=== PATIENT | male | born 1980 | race Hispanic/Latino ===

== ENCOUNTER 2017-12-22 17:45 | Inpatient (IN) | payer BC, OTHER ==
[~2017-12-22] VITALS: Ht 185.4 cm; Wt 95.4 kg
[~2017-12-22 17:45] MED LIST: ARIXTRA10 MG/0.8 SQ; ASPIRIN81 MG PO; COUMADIN5 MG PO; CYCLOBENZAPRINE5 MG PO; ENOXAPARIN100 MG/1 M SC; LOSARTAN POTASS25 MG PO; LOVENOX40 MG/0.4 SC; PANTOPRAZOLE SO40 MG PO; TYLENOL WITH C1 EACH PO
--- OUTSIDE RECORDS SUMMARY | 2017-12-22 17:47 | XMS REPORT | Clinical Summary ---
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 Disp. Refills Start End Date Status Date aspirin 81 MG EC tablet Take 81 mg by mouth Active daily. rivaroxaban (XARELTO) 20 Take 1 tablet (20 mg 30 tablet 11 12/27/19 Active mg Tab tablet total) by mouth daily. 17 losartan (COZAAR) 50 MG Take 50 mg by mouth Active tablet daily. sucralfate (CARAFATE) 100 Take 1 g by mouth 4 12/23/19 Discontin mg/mL suspension (four) times daily. 17 ued enoxaparin (LOVENOX) 100 Inject subcutaneously. 12/23/19 Discontin mg/mL Syrg 17 ued esomeprazole (NEXIUM) 40 Take 40 mg by mouth 04/20/20 Discontin MG capsule daily. 17 ued rivaroxaban (XARELTO) 10 Take by mouth 2 (two) 12/27/19 Discontin mg Tab tablet times daily . 17 ued ALPRAZolam (XANAX) 0.5 MG Take 1 tablet (0.5 mg 40 tablet 0 12/29/19 01/18/20 tablet total) by mouth 2 (two) 17 17 times daily as needed for Anxiety for up to 20 days. Max Daily Amount: 1 mg Active Problems Problem Noted Date Acute pulmonary embolism (HCC) 12/22/2016 RUQ pain 12/22/2016 Chest pain 12/19/2014 History of pulmonary embolism 12/19/2014 Pulmonary embolism 12/01/2014 Abdominal pain 06/26/2014 Chest pain, mid sternal 06/29/2013 SOB (shortness of breath) 05/30/2013 Encounters Date Type Specialty Care Team Description 04/20/2017 Emergency Emergency Medicine [facility] Reynolds Acute diarrhea (Primary MD Holger Dx);Upper respiratory tract infection, unspecified type 12/22/2016 Hospital Cardiology [facility] - Encounter MD Darion 12/28/2016 Sriram Delgado MD after 12/21/2016 Family History Medical History Relation Name Comments Diabetes Father Hypertension Father Hypertension Mother Relation Name Status Comments Father Mother Social History Tobacco Use Types Packs/Day Years Used Date Never Smoker Smokeless Tobacco: Never Used Alcohol Use Drinks/Week oz/Week Comments Yes socially Sex Assigned at Date Recorded Not on file Last Filed Vital Signs Vital Sign Reading Time Taken Blood Pressure 140/88 04/20/2017 6:53 AM CDT Pulse 71 04/20/2017 6:53 AM CDT Temperature 36.9 C (98.4 F) 04/20/2017 5:12 AM CDT Respiratory Rate 20 04/20/2017 5:12 AM CDT Oxygen Saturation 96% 04/20/2017 6:53 AM CDT Inhaled Oxygen - - Concentration Weight 93.4 kg (206 lb) 04/20/2017 5:12 AM CDT Height 185.4 cm (6' 1") 04/20/2017 5:12 AM CDT Body Mass Index 27.18 04/20/2017 5:12 AM CDT Plan of Treatment Not on file Results * XR chest PA or AP 1 view in dept (04/20/2017 5:55 AM) Specimen Performing Laboratory GE RIS Narrative FINAL REPORT CHEST RADIOGRAPH,AP CLINICAL HISTORY: COUGH IMPRESSION: Compared with 09/22/2016. No evidence of new focal lung consolidation/pneumonia, pulmonary edema or pleural effusion. The heart size is normal for this projection. Mediastinal contours are sharp and stable. No evidence of an acute osseous abnormality or pneumothorax. In summary, no radiographic evidence of an acute cardiopulmonary process. Signed: Sally Gonzalez MD Report Verified Date/Time:04/20/2017 06:20:34 Reading Location: [address] Transitional Reading Room Procedure Note Interface, External Ris In - 04/20/2017 6:22 AM CDT FINAL REPORT CHEST RADIOGRAPH, AP CLINICAL HISTORY: COUGH IMPRESSION: Compared with 09/22/2016. No evidence of new focal lung consolidation/pneumonia, pulmonary edema or pleural effusion. The heart size is normal for this projection. Mediastinal contours are sharp and stable. No evidence of an acute osseous abnormality or pneumothorax. In summary, no radiographic evidence of an acute cardiopulmonary process. Signed: Sally Gonzalez MD Report Verified Date/Time: 04/20/2017 06:20:34 Reading Location: [address] Transitional Reading Room * Manual Differential (04/20/2017 5:48 AM) Only the most recent of 6 results within the time period is included. Component Value Ref Range Total Counted WBC Morphology Normal Platelet Morphology Normal RBC Morphology Normal Specimen Performing Laboratory Blood - Arm, [address] [address] * PT/aPTT (04/20/2017 5:48 AM) Component Value Ref Range Protime 14.2 11.7 - 14.7 seconds INR 1.1 <=5.9 PTT 29.2 22.5 - 36.0 seconds Specimen Performing Laboratory Blood - Arm, [address] [address] Narrative RECOMMENDED COUMADIN/WARFARIN INR THERAPY RANGES STANDARD DOSE: 2.0 - 3.0 Includes: PROPHYLAXIS for venous thrombosis, systemic embolization; TREATMENT for venous thrombosis and/or pulmonary embolus. HIGH RISK: Target INR is 2.5-3.5 for patients with mechanical heart valves. * CBC with platelet count + automated diff (04/20/2017 5:48 AM) Only the most recent of 7 results within the time period is included. Component Value Ref Range WBC 6.1 3.5 - 10.5 K/ L RBC 5.15 4.63 - 6.08 M/ L Hemoglobin 15.4 13.7 - 17.5 GM/DL Hematocrit 44.9 40.1 - 51.0 % MCV 87.2 79.0 - 92.2 fL MCH 29.9 25.7 - 32.2 pg MCHC 34.3 32.3 - 36.5 GM/DL RDW 12.3 11.6 - 14.4 % Platelets 162 150 - 450 K/CU MM MPV 9.9 9.4 - 12.4 fL nRBC 0 0 - 0 /100 WBC % Neutros 46 % % Lymphs 45 % % Monos 7 % % Eos 2 % % Baso 0 % # Neutros 2.76 1.78 - 5.38 K/ L # Lymphs 2.72 1.32 - 3.57 K/ L # Monos 0.41 0.30 - 0.82 K/ L # Eos 0.14 0.04 - 0.54 K/ L # Baso 0.02 0.01 - 0.08 K/ L Immature 0 0 - 1 % Granulocytes-Relative Specimen Performing Laboratory Blood - Arm, [place] [address] * CBC with platelet count + automated diff (04/20/2017 5:48 AM) Only the most recent of 7 results within the time period is included. Specimen Performing Laboratory Blood Narrative The following orders were created for panel order CBC with platelet count + automated diff. Procedure Abnormality Status --------- - ------ CBC with platelet count ...[[id number]] Final result Manual Differential[[id number]] Final result Please view results for these tests on the individual orders. * Basic Metabolic Panel (04/20/2017 5:48 AM) Only the most recent of 7 results within the time period is included. Component Value Ref Range Sodium 138 136 - 145 meq/L Potassium 4.0Comment: Specimen slightly hemolyzed 3.5 - 5.1 meq/L Chloride 105 98 - 107 meq/L CO2 24 22 - 29 meq/L BUN 16 7 - 21 mg/dL Creatinine 0.97Comment: Specimen slightly hemolyzed 0.57 - 1.25 mg/dL Glucose 97 70 - 105 mg/dL Calcium 9.1 8.4 - 10.2 mg/dL EGFR 89Comment: ESTIMATED GFR IS NOT ACCURATE mL/min/1.73 sq m CREATININE CLEARANCE IN PREDICTING GLOMERULAR FILTRATION RATE. ESTIMATED GFR IS NOT APPLICABLE FOR DIALYSIS PATIENTS. Specimen Performing Laboratory Blood - Arm, Right [address] [address] * RHYTHM STRIP - SCAN (02/05/2017 8:52 AM) Only the most recent of 2 results within the time period is included. * STOOL PATH CHARGE (12/26/2016 1:06 PM) Component Value Ref Range Pathogen exam charged Done Specimen Performing Laboratory Stool - Per Rectum [address] [address] * Shiga Toxin Screen (12/26/2016 1:06 PM) Component Value Ref Range Shiga toxin 1 Not detected Not detected Shiga toxin 2 Not detected Not detected Specimen Performing Laboratory Stool - Per Rectum [address] [address] * Ova and Parasite Examination (12/26/2016 1:06 PM) Component Value Ref Range O&P Direct Smear No ova or parasites seen No ova or parasites seen O&P Concentrate Smear No ova or parasites seen No ova or parasites seen O&P Trichrome Smear No ova or parasites seen No ova or parasites seen Specimen Performing Laboratory Stool - Per Rectum [address] [address] Narrative One negative sample does not necessarily rule out the presence of a parasitic infection. Performing Laboratory: [facility] [id number] [place] [id number] Streetcar Conductor: Brooke Adams MD, FCAP * Fecal leukocytes (12/26/2016 1:06 PM) Component Value Ref Range Fecal Leukocytes No fecal leukocytes seen No fecal leukocytes seen Specimen Performing Laboratory Stool - Per Rectum [address] [address] * Stool culture + Shiga toxin (12/26/2016 1:06 PM) Component Value Ref Range Result No Salmonella, Shigella or Campylobacter isolated Specimen Performing Laboratory Stool - Per Rectum [address] [address] * Magnesium (12/25/2016 4:22 AM) Only the most recent of 3 results within the time period is included. Component Value Ref Range Magnesium 2.5Comment: Specimen slightly hemolyzed 1.6 - 2.6 mg/dL Specimen Performing Laboratory Blood [address] [address] * Clostridium difficile Toxin PCR (12/24/2016 2:25 PM) Component Value Ref Range C.Diff Toxin, PCR Not Detected Not Detected Specimen [place] [address] Narrative This qualitative real-time polymerase chain reaction assay detects the tcdB gene , encoded on the C.difficile pathogenicity locus (PaLoc).The product of tcdB , toxin B, is a cytotoxin essential for causing C.difficile-associated disease ( CDAD) and is found in virtually all toxigenic C.difficile. This assay is performed for patients suspected of having either community- acquired or nosocomial CDAD.Accordingly, only symptomatic patients should be tested and formed stools will be rejected unless ileus is present (i.e., specified when ordering).Patients may be colonized with toxigenic C.difficile strains not causing active disease; therefore, clinical correlation is needed when deciding how to manage patients with a positive test result. The assay has not been validated as a test of cure as amplifiable nucleic acid may persist after effective treatment; therefore, follow-up testing of a positive result is not recommended. * 2D Echo W/Doppler(CW/PW/Color) (12/24/2016 12:09 PM) Component Value Ref Range Ejection Fraction LV EF 60 % (63-77)* Index 27.4 %/m2 Specimen Performing Laboratory DIGISONICS Narrative Echocardiography Laboratory [address] [place], [place] [id number] Voice:[phone] Transthoracic Echocardiogram Pat.Name:ALONA SAUCEDA Pat.ID:[id number] St.Date: 12/24/2016 Refer.MD:SAVANNA PENDLETON Exam Time: 12:09:00 PM Study Type:Echo Complete Height:73inWeight:207lb BSA: 2.19 m2 DOBAge:1980 ,36Y Sex: MALEBP: 135/87 HR:65 bpmSonogrphr: Bridgette Diaz [facility] Pat. Stat.:Inpatient Room:2410 Reason for Study:Known or suspected heart failure History / Clinical:Chest pain, Hypertension, Pulmonary Embolism, Shortness of breath Procedures:2D ECHO W/ DOPPLER (CW/PW/COLOR) SUMMARY: 1. Left ventricular chamber size (by vol index) is normal (male - LVED vol - 34-74 ml/m2). No evidence of LV hypertrophy. All of the LV segments contract normally. LVEF by quantitative assessment is normal (55-60%). Normal diastolic function 2. The right ventricular chamber size and systolic function are within normal limits. 3. LA size is normal (16-34 ml/m2). RA cavity size is normal. 4. A trace of tricuspid regurgitation. Peak systolic PA pressure may be underestimated; partial TR signal. Estimated Peak systolic pressure is at least 25-30 mm Hg. The estimated RA pressure by IVC dynamics 0-5 mm Hg. In comparison with the prior exam on 09/04/16 there are no significant changes. FINDINGS: Rhythm/BP: Regular sinus rhythm during the exam. LV: All of the LV segments contract normally. The LV endocardum isadequately visualized by standard views. Left ventricularchamber size (by vol index) is normal (male - LVEDvol - 34-74 ml/m2). No evidence of LV hypertrophy. LVEFby quantitative assessment is normal (55-60%). Normal diastolicfunction LA: LA size is normal (16-34 ml/m2). LA is well visualized. RV: The right ventricular chamber size and systolic function are withinnormal limits. RV is well visualized. RA: The RA is well visualized. RA cavity size is normal. AV: Normal AoV structure and function. AoV is well visualized. MV: Normal MV structure and function. Mild mitral regurgitation. MVis well visualized. TV: Normal TV structure and function. A trace of tricuspid regurgitation.TV is well visualized. Estimated Peak systolicpressure is at least 25-30 mmHg. Peak systolic PA pressuremay be underestimated; partial TR signal. PV: Mild pulmonary regurgitation. Normal PV structure and functionby limited views and Doppler. AO: Aortic root size (Sinus of Valsalva diameter) is normal. Pericard: No pericardial effusion is visualized. Systemic Veins: The estimated RA pressure by IVC dynamics 0-5 mmHg. Comparison: In comparison with the prior exam on 09/04/16 there are no significantchanges. Quality:Technically adequate exam. MEASUREMENTS: 2D LV EF SinglePlane LV Ad 35.8 cm2(9.5-22.3)* LV CO 4.52 l/min LV As 20.1 cm2(4-11.6)* LV CI 2.06 l/min/m2 DSAGB851 ml (65-193) Index57.3 ml/ m2 LV SV 75.3 ml LVESV 50.2 mlHR 60 bpm Left Ventricle LV A% 43.8 %(36-64) LA Sng Plane LA Vol41.6 mlIndex 19 ml/m2 LA Area 16 cm2(8.8-23.4) Aorta Ao An 2.21 cm (1.4-2.6) Ao Asc2.56 cm (2.1-3.4) Parasternal Long [place] Ao An 2.28 cm (1.4-2.6) LV%fs 27.1 %(25-46) Ao Rtd3.22 cmLVPWd 0.662 cm IVSd 1 cm LA Ds 4.35 cm (2.3-3.9)* LVIDd 4.85 cm (4.3-5.1) LV Wmn 0.833 cm LVIDs 3.54 cm (2-4) DOPPLER AV LVOT For Flow LVOTpkVel 95.7 cm/s (70-110) LVOT CO 3.98 l/min LVOT VTI17.1 cmLVOT CI 1.82 l/min/m2 LVOTpkPG3.67 mmHgLVOT Area 3.8 cm2 LVOTmnPG1.87 mmHgHR 61 bpm LVOT SV 65.1 ml Aortic Valve AV DI 0.82 SVi (LVOT) 29.7 AV AV For Flow/VALERIA AV pkVel 124 cm/s (100-170) AV ET246 msec AV mnVel84.9 cm/sAVpkAcRt 3704 cm/s2 AV pkPG 6.11 mmHgAV DeRt 502 cm/s2 AV mnPG 3.33 mmHgArea (VTI) 3.12 cm2(3-5) AV VTI20.9 cmArea (Osmel) 2.95 cm2(3-5)* TV PA Sys Press TI osmel 220 cm/Alisson Press 5 mmHg RV-RA PG19.4 mmHgSysP TV 24.4 mmHg Signed 12/24/2016 01:42 PM Lois Kirkpatrick M.D. Procedure Note Interface, External Ris In - 12/24/2016 1:44 PM CDT Echocardiography Laboratory [address] [place] [address] Voice: [phone] Transthoracic Echocardiogram Pat.Name: ALONA SAUCEDA Pat.ID: [id number] .Date: 12/24/2016 Refer.MD: SAVANNA PENDLETON Exam Time: 12:09:00 PM Study Type:Echo Complete Height: 73in Weight: 207lb BSA: 2.19 m2 Age: 6 1980,36Y Sex: MALE BP: 135/87 HR: 65 bpm Sonogrphr: Bridgette Diaz [facility] Pat. Stat.:Inpatient Room: 241 Reason for Study:Known or suspected heart failure History / Clinical:Chest pain, Hypertension, Pulmonary Embolism, Shortness of breath Procedures:2D ECHO W/ DOPPLER (CW/PW/COLOR) SUMMARY: 1. Left ventricular chamber size (by vol index) is normal (male - LVED vol - 34-74 ml/m2). No evidence of LV hypertrophy. All of the LV segments contract normally. LVEF by quantitative assessment is normal (55-60%). Normal diastolic function 2. The right ventricular chamber size and systolic function are within normal limits. 3. LA size is normal (16-34 ml/m2). RA cavity size is normal. 4. A trace of tricuspid regurgitation. Peak systolic PA pressure may be underestimated; partial TR signal. Estimated Peak systolic pressure is at least 25-30 mm Hg. The estimated RA pressure by IVC dynamics 0-5 mm Hg. In comparison with the prior exam on 09/04/16 there are no significant changes. FINDINGS: Rhythm/BP: Regular sinus rhythm during the exam. LV: All of the LV segments contract normally. The LV endocardum is adequately visualized by standard views. Left ventricular chamber size (by vol index) is normal (male - LVED vol - 34-74 ml/m2). No evidence of LV hypertrophy. LVEF by quantitative assessment is normal (55-60%). Normal diastolic function LA: LA size is normal (16-34 ml/m2). LA is well visualized. RV: The right ventricular chamber size and systolic function are within normal limits. RV is well visualized. RA: The RA is well visualized. RA cavity size is normal. AV: Normal AoV structure and function. AoV is well visualized. MV: Normal MV structure and function. Mild mitral regurgitation. MV is well visualized. TV: Normal TV structure and function. A trace of tricuspid regurgitation. TV is well visualized. Estimated Peak systolic pressure is at least 25-30 mmHg. Peak systolic PA pressure may be underestimated; partial TR signal. PV: Mild pulmonary regurgitation. Normal PV structure and function by limited views and Doppler. AO: Aortic root size (Sinus of Valsalva diameter) is normal. Pericard: No pericardial effusion is visualized. Systemic Veins: The estimated RA pressure by IVC dynamics 0-5 mmHg. Comparison: In comparison with the prior exam on 09/04/16 there are no significant changes. Quality: Technically adequate exam. MEASUREMENTS: 2D LV EF SinglePlane LV Ad 35.8 cm2 (9.5-22.3)* LV CO 4.52 l/min LV As 20.1 cm2 (4-11.6)* LV CI 2.06 l/min/m2 LVEDV 125 ml (65-193) Index 57.3 ml/m2 LV SV 75.3 ml LVESV 50.2 ml HR 60 bpm Left Ventricle LV A% 43.8 % (36-64) LA Sng Plane LA Vol 41.6 ml Index 19 ml/m2 LA Area 16 cm2 (8.8-23.4) Aorta Ao An 2.21 cm (1.4-2.6) Ao Asc 2.56 cm (2.1-3.4) Parasternal Long [place] Ao An 2.28 cm (1.4-2.6) LV%fs 27.1 % (25-46) Ao Rtd 3.22 cm LVPWd 0.662 cm IVSd 1 cm LA Ds 4.35 cm (2.3-3.9)* LVIDd 4.85 cm (4.3-5.1) LV Wmn 0.833 cm LVIDs 3.54 cm (2-4) DOPPLER AV LVOT For Flow LVOTpkVel 95.7 cm/s (70-110) LVOT CO 3.98 l/min LVOT VTI 17.1 cm LVOT CI 1.82 l/min/m2 LVOTpkPG 3.67 mmHg LVOT Area 3.8 cm2 LVOTmnPG 1.87 mmHg HR 61 bpm LVOT SV 65.1 ml Aortic Valve AV DI 0.82 SVi (LVOT) 29.7 AV AV For Flow/VALERIA AV pkVel 124 cm/s (100-170) AV ET 246 msec AV mnVel 84.9 cm/s AVpkAcRt 3704 cm/s2 AV pkPG 6.11 mmHg AV DeRt 502 cm/s2 AV mnPG 3.33 mmHg Area (VTI) 3.12 cm2 (3-5) AV VTI 20.9 cm Area (Osmel) 2.95 cm2 (3-5)* TV PA Sys Press TI osmel 220 cm/s RA Press 5 mmHg RV-RA PG 19.4 mmHg SysP TV 24.4 mmHg Signed 12/24/2016 01:42 PM Lois Kirkpatrick M.D. * US abdomen limited (12/23/2016 5:42 AM) Specimen Performing Laboratory GE RIS Impressions : Limited evaluation secondary to overlying bowel gas. The partially imaged partially contracted gallbladder demonstrate no overt evidence of stones or secondary inflammatory changes. The visualized CBD was normal in caliber. Limited evaluation the liver demonstrates characteristics suggestive of steatosis. Signed: Roel Olson MD Report Verified Date/Time:12/23/2016 06:59:39 Reading Location: [address] Reading Room Narrative FINAL REPORT Abdominal ultrasound,. History: pain Comparison: Ultrasound 06/18/2012 Discussion: Excessive overlying bowel gas limits evaluation. Transverse and longitudinal images of the abdomen were obtained demonstrating a liver of normal size and increased homogeneous echogenicity measuring 16.8 cm in length.The left lobe of liver was not well-visualized secondary to overlying bowel gas. The portal vein is patent with hepatopetal flow and is within normal limits measuring 10 mm in diameter. The biliary tree is within normal limits with the common bile duct measuring 5 mm in diameter. Limited evaluation of the partially contracted gallbladder secondary to aforementioned study limitations. No overt stone was identified. No overt wall thickening or pericholecystic fluid was noted. The right kidney was normal in size and demonstrated normal echogenicity with a measurement of 9.6 x 6.0 x 6.0 cm. The pancreas was not well visualized. The abdominal aorta and visualized IVC are within normal limits. There is no evidence of free fluid. Procedure Note Interface, External Ris In - 12/23/2016 7:01 AM CDT FINAL REPORT Abdominal ultrasound, . History: pain Comparison: Ultrasound 06/18/2012 Discussion: Excessive overlying bowel gas limits evaluation. Transverse and longitudinal images of the abdomen were obtained demonstrating a liver of normal size and increased homogeneous echogenicity measuring 16.8 cm in length. The left lobe of liver was not well-visualized secondary to overlying bowel gas. The portal vein is patent with hepatopetal flow and is within normal limits measuring 10 mm in diameter. The biliary tree is within normal limits with the common bile duct measuring 5 mm in diameter. Limited evaluation of the partially contracted gallbladder secondary to aforementioned study limitations. No overt stone was identified. No overt wall thickening or pericholecystic fluid was noted. The right kidney was normal in size and demonstrated normal echogenicity with a measurement of 9.6 x 6.0 x 6.0 cm. The pancreas was not well visualized. The abdominal aorta and visualized IVC are within normal limits. There is no evidence of free fluid. IMPRESSION : Limited evaluation secondary to overlying bowel gas. The partially imaged partially contracted gallbladder demonstrate no overt evidence of stones or secondary inflammatory changes. The visualized CBD was normal in caliber. Limited evaluation the liver demonstrates characteristics suggestive of steatosis. Signed: Roel Olson MD Report Verified Date/Time: 12/23/2016 06:59:39 Reading Location: [address] Reading Room * Lipase (12/23/2016 4:24 AM) Component Value Ref Range Lipase 31 8 - 78 U/L Specimen Performing Laboratory Blood - Arm, [address] [address] * Hepatic function panel (12/23/2016 4:24 AM) Component Value Ref Range Protein, Total 6.7 6.0 - 8.3 gm/dL Albumin 3.9 3.5 - 5.0 g/dL Total Bilirubin 0.6 0.2 - 1.2 mg/dL Bilirubin, Direct 0.1 0.1 - 0.5 mg/dL Alkaline Phosphatase 75 40 - 150 U/L AST 16 5 - 34 U/L ALT 18 6 - 55 U/L Specimen Performing Laboratory Blood - Arm, [address] [address] Narrative Specimen slightly lipemic after 12/21/2016
--- OUTSIDE RECORDS SUMMARY | 2017-12-22 17:48 | XMS REPORT ---
Author Author [facility] Address Unknown Phone Unavailable Care Team Providers Care Gaming Department Head Name Role Phone JANELL LACEY Unavailable Unavailable OFORDEME, DAVIDUKWU Unavailable Unavailable MASSUMI, SAVANNA Unavailable Unavailable Problems This patient has no known problems. Allergies, Adverse Reactions, Alerts This patient has no known allergies or adverse reactions. Medications This patient has no known medications. Results Test Description Test Time Test Comments Text Results Atomic Results Result Comments CBC W/PLT COUNT & AUTO DIFFERENTIAL 2017-04-20 07:12:00 WHITE BLOOD CELL COUNT (BEAKER) (test yqok=272) 6.1 K/ L 3.5-10.5 RED BLOOD CELL COUNT (BEAKER) (test hxvq=132) 5.15 M/ L 4.63-6.08 HEMOGLOBIN (BEAKER) (test yidm=085) 15.4 GM/DL 13.7-17.5 HEMATOCRIT (BEAKER) (test mnpq=184) 44.9 % 40.1-51.0 MEAN CORPUSCULAR VOLUME (BEAKER) (test wbga=870) 87.2 fL 79.0-92.2 MEAN CORPUSCULAR HEMOGLOBIN (BEAKER) (test scoh=301) 29.9 pg 25.7-32.2 MEAN CORPUSCULAR HEMOGLOBIN CONC (BEAKER) (test evtf=989) 34.3 GM/DL 32.3- 36.5 RED CELL DISTRIBUTION WIDTH (BEAKER) (test zntk=225) 12.3 % 11.6-14.4 PLATELET COUNT (BEAKER) (test pbni=918) 162 K/CU MM 150-450 MEAN PLATELET VOLUME (BEAKER) (test zmqy=818) 9.9 fL 9.4-12.4 NUCLEATED RED BLOOD CELLS (BEAKER) (test iold=041) 0 /100 WBC 0-0 NEUTROPHILS RELATIVE PERCENT (BEAKER) (test crwk=913) 46 % LYMPHOCYTES RELATIVE PERCENT (BEAKER) (test hsle=018) 45 % MONOCYTES RELATIVE PERCENT (BEAKER) (test mpxm=501) 7 % EOSINOPHILS RELATIVE PERCENT (BEAKER) (test bunx=853) 2 % BASOPHILS RELATIVE PERCENT (BEAKER) (test xooe=929) 0 % NEUTROPHILS ABSOLUTE COUNT (BEAKER) (test cgzx=379) 2.76 K/ L 1.78-5.38 LYMPHOCYTES ABSOLUTE COUNT (BEAKER) (test tqes=461) 2.72 K/ L 1.32-3.57 MONOCYTES ABSOLUTE COUNT (BEAKER) (test ozbh=372) 0.41 K/ L 0.30-0.82 EOSINOPHILS ABSOLUTE COUNT (BEAKER) (test aajp=494) 0.14 K/ L 0.04-0.54 BASOPHILS ABSOLUTE COUNT (BEAKER) (test npua=458) 0.02 K/ L 0.01-0.08 IMMATURE GRANULOCYTES-RELATIVE PERCENT (BEAKER) (test mgyx=7285) 0 % 0-1 (MANUAL DIFFERENTIAL)2017-04-20 07:12:00* Test Item Value Reference Range Comments TOTAL COUNTED (BEAKER) (test kmlf=9809) WBC MORPHOLOGY (BEAKER) (test eklf=845) Normal PLT MORPHOLOGY (BEAKER) (test flji=236) Normal RBC MORPHOLOGY (BEAKER) (test tchv=627) Normal BASIC METABOLIC [id number] 06:26:00* Test Item Value Reference Range Comments SODIUM (BEAKER) (test wvwe=959) 138 meq/L 136-145 POTASSIUM (BEAKER) (test fufi=722) 4.0 meq/L 3.5-5.1 Specimen slightly hemolyzed CHLORIDE (BEAKER) (test esrr=991) 105 meq/L 98-107 CO2 (BEAKER) (test qbfr=312) 24 meq/L 22-29 BLOOD UREA NITROGEN (BEAKER) (test trae=412) 16 mg/dL 7-21 CREATININE (BEAKER) (test xlyb=433) 0.97 mg/dL 0.57-1.25 Specimen slightly hemolyzed GLUCOSE RANDOM (BEAKER) (test kdzu=411) 97 mg/dL 70-105 CALCIUM (BEAKER) (test bzwj=104) 9.1 mg/dL 8.4-10.2 EGFR (BEAKER) (test vcbk=1723) 89 mL/min/1.73 sq m ESTIMATED GFR IS NOT ACCURATE CREATININE CLEARANCE IN PREDICTING GLOMERULAR FILTRATION RATE. ESTIMATED GFR IS NOT APPLICABLE FOR DIALYSIS PATIENTS. RAD, CHEST, PA OR AP, 1 [id number] 06:20:00Reason for exam:->coughShould this be performed at the bedside?->YesFINAL REPORT CHEST RADIOGRAPH, AP CLINICAL HISTORY: COUGH IMPRESSION: Compared with 2016. No evidence of new focal lung consolidation/pneumonia, pulmonary edema or pleural effusion. The heart size is normal for this projection. Mediastinal contours are sharp and stable. No evidence of an acute osseous abnormality or pneumothorax. In summary, no radiographic evidence of an acute cardiopulmonary process. Signed: Sally Gonzalez MDReport Verified Date/Time: 04/20/2017 06:20:34 Reading Location: [address] Transitional Reading Room /[id number] 06:18:00 * Test Item Value Reference Range Comments PROTIME (BEAKER) (test gjuf=586) 14.2 seconds 11.7-14.7 INR (BEAKER) (test juoo=303) 1.1 <=5.9 PARTIAL THROMBOPLASTIN TIME (BEAKER) (test ycfc=969) 29.2 seconds 22.5-36.0 RECOMMENDED COUMADIN/WARFARIN INR THERAPY RANGESSTANDARD DOSE: 2.0 - 3.0 Includes: PROPHYLAXIS for venous thrombosis, systemic embolization; TREATMENT for venous thrombosis and/or pulmonary embolus.HIGH RISK: Target INR is 2.5-3.5 for patients with mechanical heart valves.OVA AND PARASITE [id number] 14:17:00* Test Item Value Reference Range Comments DIRECT SMEAR - O\T\P (BEAKER) (test tihs=955) No ova or parasites seen No ova or parasites seen CONCENTRATE SMEAR - O\T\P (BEAKER) (test vydl=581) No ova or parasites seen No ova or parasites seen TRICHROME SMEAR - O\T\P (BEAKER) (test klhu=285) No ova or parasites seen No ova or parasites seen One negative sample does not necessarily rule out the presence of a parasitic infection.Performing Laboratory: [facility] [address] [address] Vehicle Inspector: Brooke Adams MD, FCAP STOOL CULTURE + SHIGA [id number] 14:17:00* Test Item Value Reference Range Comments CULTURE (BEAKER) (test qknp=8369) No Salmonella, Shigella or Campylobacter isolated SHIGA TOXIN [id number] 13:54:00* Test Item Value Reference Range Comments SHIGA TOXIN 1 (BEAKER) (test kjlz=0884) Not detected Not detected SHIGA TOXIN 2 (BEAKER) (test upkc=8119) Not detected Not detected BASIC METABOLIC [id number] 05:10:00* Test Item Value Reference Range Comments SODIUM (BEAKER) (test xztb=349) 136 meq/L 136-145 POTASSIUM (BEAKER) (test fjgs=396) 4.1 meq/L 3.5-5.1 CHLORIDE (BEAKER) (test alop=912) 104 meq/L 98-107 CO2 (BEAKER) (test sffg=544) 21 meq/L 22-29 BLOOD UREA NITROGEN (BEAKER) (test otsb=835) 18 mg/dL 7-21 CREATININE (BEAKER) (test vszv=672) 0.87 mg/dL 0.57-1.25 GLUCOSE RANDOM (BEAKER) (test bsdf=921) 99 mg/dL 70-105 CALCIUM (BEAKER) (test slcw=659) 8.7 mg/dL 8.4-10.2 EGFR (BEAKER) (test skxj=1446) 100 mL/min/1.73 sq m ESTIMATED GFR IS NOT ACCURATE CREATININE CLEARANCE IN PREDICTING GLOMERULAR FILTRATION RATE. ESTIMATED GFR IS NOT APPLICABLE FOR DIALYSIS PATIENTS. CBC W/PLT COUNT & AUTO [id number] 04:28:00* Test Item Value Reference Range Comments WHITE BLOOD CELL COUNT (BEAKER) (test hyaz=223) 5.3 K/ L 4.0-10.0 RED BLOOD CELL COUNT (BEAKER) (test suau=972) 4.81 M/ L 4.20-5.80 HEMOGLOBIN (BEAKER) (test ofsu=298) 14.6 GM/DL 13.0-16.8 HEMATOCRIT (BEAKER) (test dcea=519) 42.5 % 40.0-50.0 MEAN CORPUSCULAR VOLUME (BEAKER) (test felh=071) 88.2 fL 82.0-98.0 MEAN CORPUSCULAR HEMOGLOBIN (BEAKER) (test tqzx=397) 30.3 pg 27.0-33.0 MEAN CORPUSCULAR HEMOGLOBIN CONC (BEAKER) (test zicq=461) 34.4 GM/DL 32.0- 36.0 RED CELL DISTRIBUTION WIDTH (BEAKER) (test djya=475) 11.7 % 10.3-14.2 PLATELET COUNT (BEAKER) (test jxzw=261) 164 K/CU MM 150-430 MEAN PLATELET VOLUME (BEAKER) (test jfeo=429) 6.8 fL 6.5-10.5 NUCLEATED RED BLOOD CELLS (BEAKER) (test ykre=447) 0 /100 WBC 0-0 NEUTROPHILS RELATIVE PERCENT (BEAKER) (test prqw=216) 42 % LYMPHOCYTES RELATIVE PERCENT (BEAKER) (test oqds=944) 44 % MONOCYTES RELATIVE PERCENT (BEAKER) (test atvx=050) 11 % EOSINOPHILS RELATIVE PERCENT (BEAKER) (test tkqp=658) 2 % BASOPHILS RELATIVE PERCENT (BEAKER) (test tztr=553) 0 % NEUTROPHILS ABSOLUTE COUNT (BEAKER) (test mqcx=703) 2.24 K/ L 1.80-8.00 LYMPHOCYTES ABSOLUTE COUNT (BEAKER) (test qncr=547) 2.32 K/ L 1.48-4.50 MONOCYTES ABSOLUTE COUNT (BEAKER) (test xgky=447) 0.59 K/ L 0.00-1.30 EOSINOPHILS ABSOLUTE COUNT (BEAKER) (test swxs=333) 0.12 K/ L 0.00-0.50 BASOPHILS ABSOLUTE COUNT (BEAKER) (test lgpu=814) 0.02 K/ L 0.00-0.20 0.00(MANUAL DIFFERENTIAL)2016-12-28 04:28:00* Test Item Value Reference Range Comments TOTAL COUNTED (BEAKER) (test woxy=6075) STOOL PATH [id number] 12:01:00* Test Item Value Reference Range Comments PATHOGEN EXAM CHARGED (BEAKER) (test pzxr=9122) Done CBC W/PLT COUNT & AUTO [id number] 10:26:00* Test Item Value Reference Range Comments WHITE BLOOD CELL COUNT (BEAKER) (test rrzq=911) 6.5 K/ L 4.0-10.0 RED BLOOD CELL COUNT (BEAKER) (test ffgn=040) 5.28 M/ L 4.20-5.80 HEMOGLOBIN (BEAKER) (test ukea=049) 16.5 GM/DL 13.0-16.8 HEMATOCRIT (BEAKER) (test oclb=531) 45.9 % 40.0-50.0 MEAN CORPUSCULAR VOLUME (BEAKER) (test vzrz=340) 87.0 fL 82.0-98.0 MEAN CORPUSCULAR HEMOGLOBIN (BEAKER) (test whwq=333) 31.3 pg 27.0-33.0 MEAN CORPUSCULAR HEMOGLOBIN CONC (BEAKER) (test vhle=060) 35.9 GM/DL 32.0- 36.0 RED CELL DISTRIBUTION WIDTH (BEAKER) (test zjmr=509) 11.9 % 10.3-14.2 PLATELET COUNT (BEAKER) (test uxnj=475) 194 K/CU MM 150-430 MEAN PLATELET VOLUME (BEAKER) (test bvce=795) 7.3 fL 6.5-10.5 NUCLEATED RED BLOOD CELLS (BEAKER) (test pgfq=484) 0 /100 WBC 0-0 NEUTROPHILS RELATIVE PERCENT (BEAKER) (test lwsl=500) 44 % LYMPHOCYTES RELATIVE PERCENT (BEAKER) (test jqcg=260) 44 % MONOCYTES RELATIVE PERCENT (BEAKER) (test ahme=313) 8 % EOSINOPHILS RELATIVE PERCENT (BEAKER) (test vnmk=623) 3 % BASOPHILS RELATIVE PERCENT (BEAKER) (test hudz=080) 1 % NEUTROPHILS ABSOLUTE COUNT (BEAKER) (test kxau=480) 2.85 K/ L 1.80-8.00 LYMPHOCYTES ABSOLUTE COUNT (BEAKER) (test elar=577) 2.86 K/ L 1.48-4.50 MONOCYTES ABSOLUTE COUNT (BEAKER) (test jgvz=143) 0.53 K/ L 0.00-1.30 EOSINOPHILS ABSOLUTE COUNT (BEAKER) (test wfio=610) 0.21 K/ L 0.00-0.50 BASOPHILS ABSOLUTE COUNT (BEAKER) (test xxzc=893) 0.05 K/ L 0.00-0.20 0.00(MANUAL DIFFERENTIAL)2016-12-27 10:26:00* Test Item Value Reference Range Comments TOTAL COUNTED (BEAKER) (test mite=8732) WBC MORPHOLOGY (BEAKER) (test zbmh=425) Normal PLT MORPHOLOGY (BEAKER) (test vvdw=774) Normal RBC MORPHOLOGY (BEAKER) (test kiky=268) Normal BASIC METABOLIC [id number] 05:37:00* Test Item Value Reference Range Comments SODIUM (BEAKER) (test qlwb=499) 137 meq/L 136-145 POTASSIUM (BEAKER) (test bvns=542) 4.4 meq/L 3.5-5.1 Specimen moderately hemolyzed CHLORIDE (BEAKER) (test covs=641) 103 meq/L 98-107 CO2 (BEAKER) (test gdfd=614) 20 meq/L 22-29 BLOOD UREA NITROGEN (BEAKER) (test qksv=528) 13 mg/dL 7-21 CREATININE (BEAKER) (test idij=774) 0.94 mg/dL 0.57-1.25 Specimen moderately hemolyzed GLUCOSE RANDOM (BEAKER) (test kmrt=901) 99 mg/dL 70-105 CALCIUM (BEAKER) (test qzen=792) 9.3 mg/dL 8.4-10.2 EGFR (BEAKER) (test gkdg=3327) 92 mL/min/1.73 sq m ESTIMATED GFR IS NOT ACCURATE CREATININE CLEARANCE IN PREDICTING GLOMERULAR FILTRATION RATE. ESTIMATED GFR IS NOT APPLICABLE FOR DIALYSIS PATIENTS. FECAL [id number] 18:34:00* Test Item Value Reference Range Comments FECAL LEUKOCYTES (BEAKER) (test xsqy=165) No fecal leukocytes seen No fecal leukocytes seen CBC W/PLT COUNT & AUTO [id number] 08:54:00* Test Item Value Reference Range Comments WHITE BLOOD CELL COUNT (BEAKER) (test acyp=935) 5.4 K/ L 4.0-10.0 RED BLOOD CELL COUNT (BEAKER) (test gykj=410) 4.80 M/ L 4.20-5.80 HEMOGLOBIN (BEAKER) (test ocdv=649) 16.0 GM/DL 13.0-16.8 HEMATOCRIT (BEAKER) (test yrqc=469) 40.8 % 40.0-50.0 MEAN CORPUSCULAR VOLUME (BEAKER) (test fgpp=512) 84.9 fL 82.0-98.0 MEAN CORPUSCULAR HEMOGLOBIN (BEAKER) (test cqmp=738) 33.3 pg 27.0-33.0 MEAN CORPUSCULAR HEMOGLOBIN CONC (BEAKER) (test vbhq=749) 39.2 GM/DL 32.0- 36.0 RED CELL DISTRIBUTION WIDTH (BEAKER) (test mvsw=633) 12.8 % 10.3-14.2 PLATELET COUNT (BEAKER) (test mfnv=222) 176 K/CU MM 150-430 MEAN PLATELET VOLUME (BEAKER) (test tkmu=088) 7.9 fL 6.5-10.5 NUCLEATED RED BLOOD CELLS (BEAKER) (test sful=232) 0 /100 WBC 0-0 NEUTROPHILS RELATIVE PERCENT (BEAKER) (test tcyw=574) 42 % LYMPHOCYTES RELATIVE PERCENT (BEAKER) (test cnyh=033) 48 % MONOCYTES RELATIVE PERCENT (BEAKER) (test hiyf=995) 7 % EOSINOPHILS RELATIVE PERCENT (BEAKER) (test ajos=261) 3 % BASOPHILS RELATIVE PERCENT (BEAKER) (test wryu=302) 1 % NEUTROPHILS ABSOLUTE COUNT (BEAKER) (test mxws=362) 2.27 K/ L 1.80-8.00 LYMPHOCYTES ABSOLUTE COUNT (BEAKER) (test ajnp=475) 2.59 K/ L 1.48-4.50 MONOCYTES ABSOLUTE COUNT (BEAKER) (test flmv=974) 0.37 K/ L 0.00-1.30 EOSINOPHILS ABSOLUTE COUNT (BEAKER) (test nfnu=598) 0.14 K/ L 0.00-0.50 BASOPHILS ABSOLUTE COUNT (BEAKER) (test uoch=868) 0.04 K/ L 0.00-0.20 0.00(MANUAL DIFFERENTIAL)2016-12-26 08:54:00* Test Item Value Reference Range Comments TOTAL COUNTED (BEAKER) (test bwds=8267) WBC MORPHOLOGY (BEAKER) (test vwwp=537) Normal PLT MORPHOLOGY (BEAKER) (test kaaf=402) Normal RBC MORPHOLOGY (BEAKER) (test jjen=643) Normal BASIC METABOLIC [id number] 06:00:00* Test Item Value Reference Range Comments SODIUM (BEAKER) (test cpcl=109) 133 meq/L 136-145 POTASSIUM (BEAKER) (test ulqg=682) 4.4 meq/L 3.5-5.1 Specimen markedly hemolyzed CHLORIDE (BEAKER) (test wqts=863) 101 meq/L 98-107 CO2 (BEAKER) (test pmoq=274) 16 meq/L 22-29 BLOOD UREA NITROGEN (BEAKER) (test eimz=026) 11 mg/dL 7-21 CREATININE (BEAKER) (test nlvj=470) 0.82 mg/dL 0.57-1.25 Specimen markedly hemolyzed GLUCOSE RANDOM (BEAKER) (test ejxu=620) 96 mg/dL 70-105 CALCIUM (BEAKER) (test mgcj=371) 9.0 mg/dL 8.4-10.2 EGFR (BEAKER) (test ffee=5977) 108 mL/min/1.73 sq m ESTIMATED GFR IS NOT ACCURATE CREATININE CLEARANCE IN PREDICTING GLOMERULAR FILTRATION RATE. ESTIMATED GFR IS NOT APPLICABLE FOR DIALYSIS PATIENTS. CLOSTRIDIUM DIFFICILE TOXIN [id number] 16:09:00* Test Item Value Reference Range Comments CLOSTRIDIUM DIFFICILE TOXIN, PCR (BEAKER) (test qyji=5164) Not Detected Not Detected This qualitative real-time polymerase chain reaction assay detects the tcdB gene , encoded on the C.difficile pathogenicity locus (PaLoc). The product of tcdB, toxin B, is a cytotoxin essential for causing C.difficile-associated disease ( CDAD) and is found in virtually all toxigenic C.difficile.This assay is performed for patients suspected of having either community-acquired or nosocomial CDAD. Accordingly, only symptomatic patients should be tested and formed stools will be rejected unless ileus is present (i.e., specified when ordering). Patients may be colonized with toxigenic C.difficile strains not causing active disease; therefore, clinical correlation is needed when deciding how to manage patients with a positive test result.The assay has not been validated as a test of cure as amplifiable nucleic acid may persist after effective treatment; therefore, follow-up testing of a positive result is not recommended.CBC W/PLT COUNT & AUTO [id number] 08:06:00* Test Item Value Reference Range Comments WHITE BLOOD CELL COUNT (BEAKER) (test omle=597) 5.5 K/ L 4.0-10.0 RED BLOOD CELL COUNT (BEAKER) (test gyez=550) 4.98 M/ L 4.20-5.80 HEMOGLOBIN (BEAKER) (test aehw=202) 15.2 GM/DL 13.0-16.8 HEMATOCRIT (BEAKER) (test cvqw=431) 43.4 % 40.0-50.0 MEAN CORPUSCULAR VOLUME (BEAKER) (test ndbz=474) 87.0 fL 82.0-98.0 MEAN CORPUSCULAR HEMOGLOBIN (BEAKER) (test oigv=840) 30.5 pg 27.0-33.0 MEAN CORPUSCULAR HEMOGLOBIN CONC (BEAKER) (test kkox=839) 35.0 GM/DL 32.0- 36.0 RED CELL DISTRIBUTION WIDTH (BEAKER) (test grhx=839) 11.5 % 10.3-14.2 PLATELET COUNT (BEAKER) (test zdos=319) 176 K/CU MM 150-430 MEAN PLATELET VOLUME (BEAKER) (test cnkw=314) 6.9 fL 6.5-10.5 NUCLEATED RED BLOOD CELLS (BEAKER) (test tgec=390) 0 /100 WBC 0-0 NEUTROPHILS RELATIVE PERCENT (BEAKER) (test hnec=333) 39 % LYMPHOCYTES RELATIVE PERCENT (BEAKER) (test lstu=959) 51 % MONOCYTES RELATIVE PERCENT (BEAKER) (test vshw=706) 7 % EOSINOPHILS RELATIVE PERCENT (BEAKER) (test cjyo=369) 2 % BASOPHILS RELATIVE PERCENT (BEAKER) (test hojl=760) 0 % NEUTROPHILS ABSOLUTE COUNT (BEAKER) (test rcdw=057) 2.15 K/ L 1.80-8.00 LYMPHOCYTES ABSOLUTE COUNT (BEAKER) (test ltox=762) 2.82 K/ L 1.48-4.50 MONOCYTES ABSOLUTE COUNT (BEAKER) (test bgpd=672) 0.41 K/ L 0.00-1.30 EOSINOPHILS ABSOLUTE COUNT (BEAKER) (test cczb=619) 0.13 K/ L 0.00-0.50 BASOPHILS ABSOLUTE COUNT (BEAKER) (test ihse=925) 0.02 K/ L 0.00-0.20 0.00(MANUAL DIFFERENTIAL)2016-12-25 08:06:00* Test Item Value Reference Range Comments TOTAL COUNTED (BEAKER) (test sflc=4286) WBC MORPHOLOGY (BEAKER) (test wgrt=973) Normal PLT MORPHOLOGY (BEAKER) (test bkes=264) Normal RBC MORPHOLOGY (BEAKER) (test arcd=337) Normal [id number] 04:55:00* Test Item Value Reference Range Comments MAGNESIUM (BEAKER) (test ngnc=551) 2.5 mg/dL 1.6-2.6 Specimen slightly hemolyzed BASIC METABOLIC [id number] 04:55:00* Test Item Value Reference Range Comments SODIUM (BEAKER) (test jhbk=876) 136 meq/L 136-145 POTASSIUM (BEAKER) (test rvqh=853) 4.1 meq/L 3.5-5.1 Specimen slightly hemolyzed CHLORIDE (BEAKER) (test xxea=884) 104 meq/L 98-107 CO2 (BEAKER) (test nnyt=484) 18 meq/L 22-29 BLOOD UREA NITROGEN (BEAKER) (test bybr=449) 10 mg/dL 7-21 CREATININE (BEAKER) (test plnn=193) 0.83 mg/dL 0.57-1.25 Specimen slightly hemolyzed GLUCOSE RANDOM (BEAKER) (test ujli=692) 96 mg/dL 70-105 CALCIUM (BEAKER) (test dwhw=821) 9.0 mg/dL 8.4-10.2 EGFR (BEAKER) (test sxou=1431) 106 mL/min/1.73 sq m ESTIMATED GFR IS NOT ACCURATE CREATININE CLEARANCE IN PREDICTING GLOMERULAR FILTRATION RATE. ESTIMATED GFR IS NOT APPLICABLE FOR DIALYSIS PATIENTS. CBC W/PLT COUNT & AUTO [id number] 11:27:00* Test Item Value Reference Range Comments WHITE BLOOD CELL COUNT (BEAKER) (test inly=492) 6.1 K/ L 4.0-10.0 RED BLOOD CELL COUNT (BEAKER) (test vtek=682) 4.90 M/ L 4.20-5.80 HEMOGLOBIN (BEAKER) (test reil=355) 14.6 GM/DL 13.0-16.8 HEMATOCRIT (BEAKER) (test ylje=489) 43.3 % 40.0-50.0 MEAN CORPUSCULAR VOLUME (BEAKER) (test kpwj=827) 88.5 fL 82.0-98.0 MEAN CORPUSCULAR HEMOGLOBIN (BEAKER) (test gxyc=075) 29.8 pg 27.0-33.0 MEAN CORPUSCULAR HEMOGLOBIN CONC (BEAKER) (test yzzc=497) 33.7 GM/DL 32.0- 36.0 RED CELL DISTRIBUTION WIDTH (BEAKER) (test abyx=242) 11.7 % 10.3-14.2 PLATELET COUNT (BEAKER) (test qjex=593) 163 K/CU MM 150-430 MEAN PLATELET VOLUME (BEAKER) (test osay=373) 7.3 fL 6.5-10.5 NUCLEATED RED BLOOD CELLS (BEAKER) (test hrph=073) 0 /100 WBC 0-0 NEUTROPHILS RELATIVE PERCENT (BEAKER) (test fshw=104) 40 % LYMPHOCYTES RELATIVE PERCENT (BEAKER) (test zibq=681) 48 % MONOCYTES RELATIVE PERCENT (BEAKER) (test iubo=534) 7 % EOSINOPHILS RELATIVE PERCENT (BEAKER) (test trxi=622) 3 % BASOPHILS RELATIVE PERCENT (BEAKER) (test rssp=445) 1 % NEUTROPHILS ABSOLUTE COUNT (BEAKER) (test kgbb=615) 2.44 K/ L 1.80-8.00 LYMPHOCYTES ABSOLUTE COUNT (BEAKER) (test urfp=511) 2.92 K/ L 1.48-4.50 MONOCYTES ABSOLUTE COUNT (BEAKER) (test jmgq=684) 0.45 K/ L 0.00-1.30 EOSINOPHILS ABSOLUTE COUNT (BEAKER) (test pace=306) 0.17 K/ L 0.00-0.50 BASOPHILS ABSOLUTE COUNT (BEAKER) (test nggs=950) 0.08 K/ L 0.00-0.20 0.00(MANUAL DIFFERENTIAL)2016-12-24 11:27:00* Test Item Value Reference Range Comments TOTAL COUNTED (BEAKER) (test ddsi=8775) WBC MORPHOLOGY (BEAKER) (test ugrq=979) Normal PLT MORPHOLOGY (BEAKER) (test jwio=712) Normal RBC MORPHOLOGY (BEAKER) (test ovlt=923) Normal [id number] 06:33:00* Test Item Value Reference Range Comments MAGNESIUM (BEAKER) (test mclf=850) 2.3 mg/dL 1.6-2.6 BASIC METABOLIC [id number] 06:33:00* Test Item Value Reference Range Comments SODIUM (BEAKER) (test ifti=291) 137 meq/L 136-145 POTASSIUM (BEAKER) (test hnbw=919) 3.8 meq/L 3.5-5.1 CHLORIDE (BEAKER) (test fbxc=381) 105 meq/L 98-107 CO2 (BEAKER) (test jlxd=359) 21 meq/L 22-29 BLOOD UREA NITROGEN (BEAKER) (test mwvc=229) 14 mg/dL 7-21 CREATININE (BEAKER) (test lhnk=333) 0.91 mg/dL 0.57-1.25 GLUCOSE RANDOM (BEAKER) (test pyuu=556) 116 mg/dL 70-105 CALCIUM (BEAKER) (test gfrp=715) 8.4 mg/dL 8.4-10.2 EGFR (BEAKER) (test ngdf=0709) 95 mL/min/1.73 sq m ESTIMATED GFR IS NOT ACCURATE CREATININE CLEARANCE IN PREDICTING GLOMERULAR FILTRATION RATE. ESTIMATED GFR IS NOT APPLICABLE FOR DIALYSIS PATIENTS. CBC W/PLT COUNT & AUTO [id number] 06:14:00* Test Item Value Reference Range Comments WHITE BLOOD CELL COUNT (BEAKER) (test ucjm=875) 7.2 K/ L 4.0-10.0 RED BLOOD CELL COUNT (BEAKER) (test wczj=061) 4.98 M/ L 4.20-5.80 HEMOGLOBIN (BEAKER) (test bvok=306) 14.9 GM/DL 13.0-16.8 HEMATOCRIT (BEAKER) (test whpe=156) 44.2 % 40.0-50.0 MEAN CORPUSCULAR VOLUME (BEAKER) (test lyod=520) 88.8 fL 82.0-98.0 MEAN CORPUSCULAR HEMOGLOBIN (BEAKER) (test ruus=988) 29.9 pg 27.0-33.0 MEAN CORPUSCULAR HEMOGLOBIN CONC (BEAKER) (test wogg=215) 33.6 GM/DL 32.0- 36.0 RED CELL DISTRIBUTION WIDTH (BEAKER) (test jsxp=655) 12.0 % 10.3-14.2 PLATELET COUNT (BEAKER) (test qksy=124) 165 K/CU MM 150-430 MEAN PLATELET VOLUME (BEAKER) (test sysw=477) 7.1 fL 6.5-10.5 NUCLEATED RED BLOOD CELLS (BEAKER) (test kjjq=885) 0 /100 WBC 0-0 NEUTROPHILS RELATIVE PERCENT (BEAKER) (test xgmr=941) 46 % LYMPHOCYTES RELATIVE PERCENT (BEAKER) (test obze=372) 42 % MONOCYTES RELATIVE PERCENT (BEAKER) (test ogql=786) 9 % EOSINOPHILS RELATIVE PERCENT (BEAKER) (test zlbh=415) 2 % BASOPHILS RELATIVE PERCENT (BEAKER) (test mhki=910) 1 % NEUTROPHILS ABSOLUTE COUNT (BEAKER) (test xclp=416) 3.31 K/ L 1.80-8.00 LYMPHOCYTES ABSOLUTE COUNT (BEAKER) (test gmso=330) 3.04 K/ L 1.48-4.50 MONOCYTES ABSOLUTE COUNT (BEAKER) (test wcvz=876) 0.69 K/ L 0.00-1.30 EOSINOPHILS ABSOLUTE COUNT (BEAKER) (test xfkt=048) 0.14 K/ L 0.00-0.50 BASOPHILS ABSOLUTE COUNT (BEAKER) (test umnp=839) 0.05 K/ L 0.00-0.20 [id number] 06:10:00* Test Item Value Reference Range Comments MAGNESIUM (BEAKER) (test vdkn=244) 2.4 mg/dL 1.6-2.6 BASIC METABOLIC [id number] 06:10:00* Test Item Value Reference Range Comments SODIUM (BEAKER) (test lqwj=739) 139 meq/L 136-145 POTASSIUM (BEAKER) (test vzwl=850) 3.7 meq/L 3.5-5.1 CHLORIDE (BEAKER) (test foaa=071) 104 meq/L 98-107 CO2 (BEAKER) (test dcgc=753) 27 meq/L 22-29 BLOOD UREA NITROGEN (BEAKER) (test ufwo=118) 17 mg/dL 7-21 CREATININE (BEAKER) (test dzmy=770) 0.98 mg/dL 0.57-1.25 GLUCOSE RANDOM (BEAKER) (test jgbr=658) 89 mg/dL 70-105 CALCIUM (BEAKER) (test yzxz=405) 8.6 mg/dL 8.4-10.2 EGFR (BEAKER) (test uezr=0418) 88 mL/min/1.73 sq m ESTIMATED GFR IS NOT ACCURATE CREATININE CLEARANCE IN PREDICTING GLOMERULAR FILTRATION RATE. ESTIMATED GFR IS NOT APPLICABLE FOR DIALYSIS PATIENTS. HEPATIC FUNCTION [id number] 06:10:00* Test Item Value Reference Range Comments TOTAL PROTEIN (BEAKER) (test weck=352) 6.7 gm/dL 6.0-8.3 ALBUMIN (BEAKER) (test ksiy=2749) 3.9 g/dL 3.5-5.0 BILIRUBIN TOTAL (BEAKER) (test ywvl=123) 0.6 mg/dL 0.2-1.2 BILIRUBIN DIRECT (BEAKER) (test cavl=892) 0.1 mg/dL 0.1-0.5 ALKALINE PHOSPHATASE (BEAKER) (test vdjk=558) 75 U/L 40-150 AST (SGOT) (BEAKER) (test brvx=760) 16 U/L 5-34 ALT (SGPT) (BEAKER) (test aczs=048) 18 U/L 6-55 Specimen slightly [id number] 06:10:00* Test Item Value Reference Range Comments LIPASE (BEAKER) (test qavk=995) 31 U/L 8-78 CREATINE KINASE (CK), TOTAL AND [id number] 00:32:00* Test Item Value Reference Range Comments CREATINE KINASE TOTAL (BEAKER) (test zbas=670) 130 U/L 29-200 CREATINE KINASE-MB (BEAKER) (test buoq=470) 1.3 ng/mL 0.0-6.6 CREATINE KINASE-MB INDEX (BEAKER) (test caek=889) 1.0 % Effective 06/28/2014: CK-MB Reference Range ChangeNew: 0.0-6.6 Previous: 0.0- 4.9CK-MB Reference Range:<6.7 Normal6.7-10.0 Borderline>10.0 AbnormalTROPONIN [id number] 00:32:00* Test Item Value Reference Range Comments TROPONIN I (BEAKER) (test petx=107) 0.01 ng/mL 0.00-0.03 Effective 06/28/2014: Reference Range ChangeNew: 0.00-0.03 Previous 0.00- 0.15Troponin I (TnI) levels must be interpreted in the context of the presenting symptoms and the clinical findings. Elevated TnI levels indicate myocardial damage, but are not specific for ischemic heart disease. Elevated TnI levels are seen in patients with other cardiac conditions (including myocarditis and congestive heart failure), and slight TnI elevations occur in patients with other conditions, including sepsis, renal failure, acidosis, acute neurological disease, and persistent tachyarrhythmia.BASIC METABOLIC [id number] 00:24:00* Test Item Value Reference Range Comments SODIUM (BEAKER) (test adam=210) 141 meq/L 136-145 POTASSIUM (BEAKER) (test xwvh=551) 3.7 meq/L 3.5-5.1 CHLORIDE (BEAKER) (test oebl=253) 104 meq/L 98-107 CO2 (BEAKER) (test pzno=004) 27 meq/L 22-29 BLOOD UREA NITROGEN (BEAKER) (test uegd=907) 22 mg/dL 7-21 CREATININE (BEAKER) (test pauf=035) 1.07 mg/dL 0.57-1.25 GLUCOSE RANDOM (BEAKER) (test qazd=425) 91 mg/dL 70-105 CALCIUM (BEAKER) (test bpxx=876) 9.5 mg/dL 8.4-10.2 EGFR (BEAKER) (test ugim=3148) 79 mL/min/1.73 sq m ESTIMATED GFR IS NOT ACCURATE CREATININE CLEARANCE IN PREDICTING GLOMERULAR FILTRATION RATE. ESTIMATED GFR IS NOT APPLICABLE FOR DIALYSIS PATIENTS. [id number] 00:20:00* Test Item Value Reference Range Comments PROTIME (BEAKER) (test szfn=300) 12.9 seconds 11.7-14.7 INR (BEAKER) (test cvnk=803) 1.0 <=5.9 PARTIAL THROMBOPLASTIN TIME (BEAKER) (test rdfi=949) 25.6 seconds 22.5-36.0 RECOMMENDED COUMADIN/WARFARIN INR THERAPY RANGESSTANDARD DOSE: 2.0 - 3.0 Includes: PROPHYLAXIS for venous thrombosis, systemic embolization; TREATMENT for venous thrombosis and/or pulmonary embolus.HIGH RISK: Target INR is 2.5-3.5 for patients with mechanical heart valves.CBC W/PLT COUNT & AUTO [id number] 00:20:00* Test Item Value Reference Range Comments WHITE BLOOD CELL COUNT (BEAKER) (test eqny=196) 7.7 K/ L 4.0-10.0 RED BLOOD CELL COUNT (BEAKER) (test xfyi=806) 5.06 M/ L 4.20-5.80 HEMOGLOBIN (BEAKER) (test dbse=776) 16.1 GM/DL 13.0-16.8 HEMATOCRIT (BEAKER) (test qjkc=383) 44.3 % 40.0-50.0 MEAN CORPUSCULAR VOLUME (BEAKER) (test ujgf=721) 87.6 fL 82.0-98.0 MEAN CORPUSCULAR HEMOGLOBIN (BEAKER) (test hxdk=437) 31.8 pg 27.0-33.0 MEAN CORPUSCULAR HEMOGLOBIN CONC (BEAKER) (test wmze=930) 36.3 GM/DL 32.0- 36.0 RED CELL DISTRIBUTION WIDTH (BEAKER) (test skmy=918) 11.9 % 10.3-14.2 PLATELET COUNT (BEAKER) (test hxqs=639) 141 K/CU MM 150-430 MEAN PLATELET VOLUME (BEAKER) (test akdf=797) 7.1 fL 6.5-10.5 NUCLEATED RED BLOOD CELLS (BEAKER) (test xtsw=169) 0 /100 WBC 0-0 NEUTROPHILS RELATIVE PERCENT (BEAKER) (test vaqi=806) 49 % LYMPHOCYTES RELATIVE PERCENT (BEAKER) (test jzmo=595) 41 % MONOCYTES RELATIVE PERCENT (BEAKER) (test bbou=979) 8 % EOSINOPHILS RELATIVE PERCENT (BEAKER) (test dhck=791) 2 % BASOPHILS RELATIVE PERCENT (BEAKER) (test cbva=831) 1 % NEUTROPHILS ABSOLUTE COUNT (BEAKER) (test ncdy=764) 3.76 K/ L 1.80-8.00 LYMPHOCYTES ABSOLUTE COUNT (BEAKER) (test kxjt=177) 3.16 K/ L 1.48-4.50 MONOCYTES ABSOLUTE COUNT (BEAKER) (test qlen=020) 0.59 K/ L 0.00-1.30 EOSINOPHILS ABSOLUTE COUNT (BEAKER) (test pliy=260) 0.14 K/ L 0.00-0.50 BASOPHILS ABSOLUTE COUNT (BEAKER) (test xgvr=151) 0.05 K/ L 0.00-0.20 0[address]CT CHEST W [facility] [address] [address] Patient Name: ALONA GRIFFITH MR #: [id number] : 1980 Age/Sex: 36/M Req #: [id number] Adm Physician: Ordered by: JANELL LACEY MD Report #: [id number] Location: ER Room/Bed: Procedure: [id number] CT/CT CHEST W Exam Date: 04/27/17 Exam Time: 2011 REPORT STATUS: Signed EXAM: CT CHEST W DATE: 04/27/2017 8:00 PM Time stamp on exam: 2018 hours INDICATION: Chest pain and coughing up blood COMPARISON : CT of the chest October 16, 2016 TECHNIQUE: Multidetector CT scanning of the chest was performed. Coronal and sagittal multiplanar reformations were obtained. PE protocol performed. IV Contrast: 100 cc SMV 370 CTDIvol has been reviewed. It is below the limits set by the Radiation Protocol Committee (RPC). FINDINGS: LUNGS AND AIRWAYS: The trachea and major bronchi are unremarkable. No consolidations or edema. Mild bibasilar atelectasis. PLEURA: No effusions or pneumothorax. HEART, MEDIASTINUM, VESSELS: The heart is within normal size limits. No pericardial effusion. No thoracic aortic aneurysm. The main pulmonary artery measures 2.4 cm. No mediastinal mass or lymphadenopathy. Stable nonocclusive linear thrombus involving a segmental and subsegmental branches of the right and more occlusive of the left lower lobe pulmonary arteries. Stable filling defect in the left inferior pulmonary vein. UPPER ABDOMEN: Nonspecific partially visualized coarse calcification in the infrarenal inferior vena cava, probably related to chronic thrombus. MUSCULOSKELETAL: No acute findings. IMPRESSION: Stable chronic bilateral lower lobe pulmonary emboli. No new pulmonary embolism identified. No evidence of pulmonary infarct. 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 Signed by : Dr. Rito Chapman M.D. on 04/27/2017 8:54 PM Dictated By: RITO CHAPMAN MD 53 Transcribed By: CLIFF on 04/27/172053 COPY TO: JANELL LACEY MD CHEST SINGLE (NOT PORTABLE) [address] [place] [address] Patient Name: ALONA GRIFFITH MR #: [id number] : 1980 Age/Sex: 36/M Req #: [id number] [facility] Physician: Ordered by: JANELL LACEY MD Report #: [id number] Location: ER Room/Bed: Procedure: [id number] DX/CHEST SINGLE (NOT PORTABLE) Exam Date: 04/27/17 Exam Time: 1914 REPORT STATUS: Signed EXAM: CHEST SINGLE (NOT PORTABLE), AP 1 view DATE: 04/27/2017 7:02 PM Time stamp on exam: 1906 hours INDICATION: Mild chest pain COMPARISON: AP view of the chest April 19, 2016 FINDINGS: LINES/TUBES: None LUNGS: No consolidations or edema. Subsegmental atelectasis left lung base. PLEURA: No effusions or pneumothorax. HEART AND MEDIASTINUM: Normal size and contour. BONES AND SOFT TISSUES: No acute findings. IMPRESSION: No acute thoracic abnormality. Signed by: Dr. Rito Chapman M.D. on 04/27/2017 8:20 PM Dictated By: RITO CHAPMAN MD 19 Transcribed By: CLIFF on 2019 COPY TO: JANELL LACEY MD
[2017-12-22] MEDS ORDERED: SODIUM CHLORIDE 0.9% 1000ML 1,000 ML IV STA (18:44)
[2017-12-22] MEDS ORDERED: MORPHINE SULFATE 4 MG/ML SYR IV STA (18:44)
[2017-12-22] MEDS ORDERED: PIPER-TAZ 3.375 GM 50 ML IV STA (18:44)
[2017-12-22] MEDS ORDERED: ONDANSETRON HCL 4 MG ORAL DISINTEGRATING TAB PO ONE (18:45)
[2017-12-22] MEDS ORDERED: PANTOPRAZOLE 40 MG 10ML VIAL ONE (21:05)
[2017-12-22] MEDS: DOXYCYCLINE 100MG/NS 100ML 100 ML IV SCH (21:10)
[2017-12-22 21:17] LABS: BASOPHILS % 0.3 % (0.0-1.0); EOSINOPHILS # (AUTO) 0.2 (0.0-0.4); EOSINOPHILS % 2.3 % (0.0-6.0); HEMATOCRIT 45.5 % (38.2-49.6); HEMOGLOBIN 15.4 g/dL (14.0-18.0); LYMPHOCYTES # (AUTO) 1.7 (1.0-3.2); LYMPHOCYTES % 23.8 % (18.0-39.1); MEAN CORPUSCULAR HEMOGLOBIN 29.3 pg (28-32); MEAN CORPUSCULAR HGB CONC 33.8 g/dL (31-35); MEAN CORPUSCULAR VOLUME 86.7 fL (81-99); MONOCYTES # (AUTO) 0.6 (0.2-0.8); MONOCYTES % 8.7 % (4.4-11.3); NEUTROPHILS # (AUTO) 4.5 (2.1-6.9); NEUTROPHILS % 64.6 % (38.7-80.0); PLATELET COUNT 212 x10e3/uL (140-360); RED BLOOD COUNT 5.25 x10e6/uL (4.3-5.7)
[2017-12-22 21:23] LABS: INR 1.03; PROTHROMBIN TIME 12.7 seconds (11.9-14.5)
[2017-12-22 21:24] LABS: PARTIAL THROMBOPLASTIN TIME 33.3 seconds (23.8-35.5)
[2017-12-22 21:34] LABS: ALANINE AMINOTRANSFERASE 31 IU/L (0-55); ALBUMIN/GLOBULIN RATIO 0.9 (0.8-2.0); ALKALINE PHOSPHATASE 107 IU/L (40-150); ANION GAP 13.8 mmol/L (8-16); BLOOD UREA NITROGEN 21 mg/dL (7-26); BUN/CREATININE RATIO 21 (6-25); CARBON DIOXIDE 24 mmol/L (22-29); CHLORIDE 104 mmol/L (98-107); EST GLOMERULAR FILTRATION RATE > 60 ML/MIN (60-); GLUCOSE 80 mg/dL (74-118); POTASSIUM 3.8 mmol/L (3.5-5.1); SODIUM 138 mmol/L (136-145)
[2017-12-22 21:42] LABS: CREATINE KINASE 339 IU/L (30-200)
--- NOTE | 2017-12-22 22:24 | Diagnostic Imaging Report ---
CT FOREARM LEFT WITH CONTRAST TECHNIQUE: Standard departmental protocols were used. Post-contrast images were obtained after the intravenous injection of 100 cc of Isovue-370. Sagittal and coronal reformatted images were obtained. HISTORY: Infection/abscess formation COMPARISON: None. FINDINGS: The alignment is normal. There is no evidence of a focal bone or joint abnormality. The soft tissues are remarkable for dorsal edema involving the entire forearm wrist and proximal dorsum of the hand. No evidence of peripherally enhancing fluid collection. IMPRESSION: Dorsal edema of the left forearm and wrist without evidence of developing abscess. Findings may represent cellulitis Signed by: Dr. Stan Espana M.D. on 12/22/2017 10:20 PM
[2017-12-22] MEDS ORDERED: ONDANSETRON HCL 4 MG ORAL DISINTEGRATING TAB PO PRN (22:45)
[2017-12-22] MEDS ORDERED: SODIUM CHLORIDE 0.9% 50ML 50 ML ONE (23:08)
[2017-12-22] MEDS ORDERED: IOPAMIDOL 370 MG/ML 200 ML INFUS..BTL INJ ONE (23:08)
[2017-12-22] MEDS: SODIUM CHLORIDE 0.9% 1000ML 1,000 ML IV SCH (23:34)
[2017-12-22] MEDS: VANCOMYCIN 1GM/NS 250 ML 250 ML IV SCH (23:34)
[2017-12-23] VITALS (8 sets, daily range): BP systolic 133–168; BP diastolic 63–86
--- OUTSIDE RECORDS SUMMARY | 2017-12-23 00:34 | XMS REPORT | Clinical Summary ---
Author Author MARYANNE [facility] Organization [facility] Address Unknown Phone Unavailable Care Team Providers Care Hydraulic Technician Name Role Phone PCP Unavailable Allergies Active [...] MD Darion 12/28/2016 Sriram Delgado MD after 12/22/2016 Family History Medical History Relation Name Comments [...] MD Report Verified Date/Time:04/20/2017 06:20:34 Reading Location: [address] Transitional Reading Room Procedure Note Interface, [...] Report Verified Date/Time: 04/20/2017 06:20:34 Reading Location: [address] Transitional Reading Room * Manual Differential (04/20/2017 5:48 AM) Only the most recent of 6 results within the time period is included. Component Value Ref Range Total Counted WBC Morphology Normal Platelet Morphology Normal RBC Morphology Normal Specimen Performing Laboratory Blood - Arm, [address] [address] * PT/aPTT (04/20/2017 5:48 AM) Component Value Ref Range Protime 14.2 11.7 - 14.7 seconds INR 1.1 <=5.9 PTT 29.2 22.5 - 36.0 seconds Specimen Performing Laboratory Blood - Arm, [address] [address] Narrative RECOMMENDED COUMADIN/WARFARIN INR THERAPY RANGES STANDARD [...] Specimen Performing Laboratory Blood - Arm, [place] [address] * CBC with platelet count + automated diff (04/20/2017 5:48 AM) Only the most recent of 7 results within the time period is included. Specimen Performing Laboratory Blood Narrative The following orders were created for panel order CBC with platelet count + automated diff. Procedure Abnormality Status --------- - ------ CBC with platelet count ...[[id number]] Final result Manual Differential[[id number]] Final result Please view results for these [...] Specimen Performing Laboratory Blood - Arm, Right [address] [address] * RHYTHM STRIP - SCAN (02/05/2017 8:52 AM) Only the most recent of 2 results within the time period is included. * STOOL PATH CHARGE (12/26/2016 1:06 PM) Component Value Ref Range Pathogen exam charged Done Specimen Performing Laboratory Stool - Per Rectum [address] [address] * Shiga Toxin Screen (12/26/2016 1:06 PM) Component Value Ref Range Shiga toxin 1 Not detected Not detected Shiga toxin 2 Not detected Not detected Specimen Performing Laboratory Stool - Per Rectum [address] [address] * Ova and Parasite Examination (12/26/2016 1:06 PM) Component Value Ref Range O&P Direct Smear No ova or parasites seen No ova or parasites seen O&P Concentrate Smear No ova or parasites seen No ova or parasites seen O&P Trichrome Smear No ova or parasites seen No ova or parasites seen Specimen Performing Laboratory Stool - Per Rectum [address] [address] Narrative One negative sample does not necessarily rule out the presence of a parasitic infection. Performing Laboratory: [facility] [id number] [place] [id number] Scientist Propagator: Brooke Adams MD, FCAP * Fecal leukocytes (12/26/2016 1:06 PM) Component Value Ref Range Fecal Leukocytes No fecal leukocytes seen No fecal leukocytes seen Specimen Performing Laboratory Stool - Per Rectum [address] [address] * Stool culture + Shiga toxin (12/26/2016 1:06 PM) Component Value Ref Range Result No Salmonella, Shigella or Campylobacter isolated Specimen Performing Laboratory Stool - Per Rectum [address] [address] * Magnesium (12/25/2016 4:22 AM) Only the most recent of 3 results within the time period is included. Component Value Ref Range Magnesium 2.5Comment: Specimen slightly hemolyzed 1.6 - 2.6 mg/dL Specimen Performing Laboratory Blood [address] [address] * Clostridium difficile Toxin PCR (12/24/2016 2:25 PM) Component Value Ref Range C.Diff Toxin, PCR Not Detected Not Detected Specimen [place]forming [place] [address] Narrative This qualitative real-time polymerase chain reaction [...] Specimen Performing Laboratory DIGISONICS Narrative Echocardiography Laboratory [address] [place], [place] [id number] Voice:[phone] Transthoracic Echocardiogram Pat.Name:ALONA SAUCEDA Pat.ID:[id number] St.Date: 12/24/2016 Refer.MD:SAVANNA PENDLETON Exam Time: 12:09:00 PM Study Type:Echo Complete Height:73inWeight:207lb BSA: 2.19 m2 DOBAge:1980 ,36Y Sex: MALEBP: 135/87 HR:65 bpmSonogrphr: Bridgette Diaz [facility] Pat. Stat.:Inpatient Room:2410 Reason for Study:Known or [...] As 20.1 cm2(4-11.6)* LV CI 2.06 l/min/m2 [id number] ml (65-193) Index57.3 ml/ m2 LV SV 75.3 ml LVESV 50.2 mlHR 60 bpm Left Ventricle LV A% 43.8 %(36-64) LA Sng Plane LA Vol41.6 mlIndex 19 ml/m2 LA Area 16 cm2(8.8-23.4) Aorta Ao An 2.21 cm (1.4-2.6) Ao Asc2.56 cm (2.1-3.4) Parasternal [place] Ao An 2.28 cm (1.4-2.6) LV%fs 27.1 [...] - 12/24/2016 1:44 PM CDT Echocardiography Laboratory [address] [place] [address] Voice: [phone] Transthoracic Echocardiogram Pat.Name: ALONA SAUCEDA Pat.ID: [id number] .Date: 12/24/2016 Refer.MD: SAVANNA PENDLETON Exam Time: 12:09:00 PM Study Type:Echo Complete Height: 73in Weight: 207lb BSA: 2.19 m2 Age: 4 1980,36Y Sex: MALE BP: 135/87 HR: 65 bpm Sonogrphr: Bridgette Diaz [facility] Pat. Stat.:Inpatient Room: 241 Reason for Study:Known [...] Ao Asc 2.56 cm (2.1-3.4) Parasternal [place] Ao An 2.28 cm (1.4-2.6) LV%fs 27.1 [...] 24.4 mmHg Signed 12/24/2016 01:42 PM Lois Kirkpartick M.D. * US abdomen limited (12/23/2016 5:42 [...] MD Report Verified Date/Time:12/23/2016 06:59:39 Reading Location: [address] Reading Room Narrative FINAL REPORT Abdominal [...] Report Verified Date/Time: 12/23/2016 06:59:39 Reading Location: [address] Reading Room * Lipase (12/23/2016 4:24 AM) Component Value Ref Range Lipase 31 8 - 78 U/L Specimen Performing Laboratory Blood - Arm, [address] [address] * Hepatic function panel (12/23/2016 4:24 AM) Component Value Ref Range Protein, Total 6.7 6.0 - 8.3 gm/dL Albumin 3.9 3.5 - 5.0 g/dL Total Bilirubin 0.6 0.2 - 1.2 mg/dL Bilirubin, Direct 0.1 0.1 - 0.5 mg/dL Alkaline Phosphatase 75 40 - 150 U/L AST 16 5 - 34 U/L ALT 18 6 - 55 U/L Specimen Performing Laboratory Blood - Arm, [address] [address] Narrative Specimen slightly lipemic after 12/22/2016
[2017-12-23] MEDS ORDERED: LEVOFLOXACIN 500MG/D5W 100ML 100 ML IV SCH ×2 (02:00→09:00)
[2017-12-23] MEDS ORDERED: CLINDAMYCIN HC150 MG PO (02:02)
[2017-12-23] MEDS ORDERED: LOSARTAN POTASS25 MG PO (02:02)
[2017-12-23] MEDS ORDERED: ELIQUIS PO (02:02)
[2017-12-23] MEDS ORDERED: LEVOFLOXACIN 500MG/D5W 100ML 100 ML IV ONE (02:06)
[2017-12-23] MEDS: LEVOFLOXACIN 500MG/D5W 100ML 100 ML IV SCH (02:19)
[2017-12-23] MEDS: MORPHINE SULFATE 2 MG/ML SYR IV PRN ×4 (02:43→19:26)
[2017-12-23] MEDS ORDERED: APIXABAN 5 MG TABLET PO SCH (09:00)
[2017-12-23] MEDS: SODIUM CHLORIDE 0.9% 1000ML 1,000 ML IV SCH (09:45)
[2017-12-23] MEDS: DOXYCYCLINE 100MG/NS 100ML 100 ML IV SCH (09:45)
[2017-12-23 09:57] LABS: ALANINE AMINOTRANSFERASE 24 IU/L (0-55); ALBUMIN 3.4 g/dL (3.5-5.0); ALBUMIN/GLOBULIN RATIO 1.1 (0.8-2.0); ALKALINE PHOSPHATASE 86 IU/L (40-150); ANION GAP 10.1 mmol/L (8-16); BLOOD UREA NITROGEN 21 mg/dL (7-26); BUN/CREATININE RATIO 25 (6-25); CARBON DIOXIDE 24 mmol/L (22-29); CHLORIDE 109 mmol/L (98-107); CREATININE, SERUM 0.83 mg/dL (0.72-1.25); EST GLOMERULAR FILTRATION RATE > 60 ML/MIN (60-); GLUCOSE 95 mg/dL (74-118); POTASSIUM 4.1 mmol/L (3.5-5.1); SODIUM 139 mmol/L (136-145)
[2017-12-23] MEDS: VANCOMYCIN 1GM/NS 250 ML 250 ML IV SCH ×2 (11:12→21:08)
[2017-12-23 11:41] LABS: BASOPHILS % 0.3 % (0.0-1.0); EOSINOPHILS # (AUTO) 0.2 (0.0-0.4); EOSINOPHILS % 3.6 % (0.0-6.0); HEMATOCRIT 39.1 % (38.2-49.6); LYMPHOCYTES # (AUTO) 1.9 (1.0-3.2); LYMPHOCYTES % 30.9 % (18.0-39.1); MEAN CORPUSCULAR HEMOGLOBIN 29.1 pg (28-32); MEAN CORPUSCULAR HGB CONC 33.2 g/dL (31-35); MEAN CORPUSCULAR VOLUME 87.7 fL (81-99); MONOCYTES # (AUTO) 0.6 (0.2-0.8); MONOCYTES % 9.6 % (4.4-11.3); NEUTROPHILS # (AUTO) 3.4 (2.1-6.9); NEUTROPHILS % 55.4 % (38.7-80.0); PLATELET COUNT 200 x10e3/uL (140-360); RED BLOOD COUNT 4.46 x10e6/uL (4.3-5.7)
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
[2017-12-23] MEDS: LOSARTAN POTASSIUM 25 MG TAB PO SCH (15:58)
[2017-12-23] MEDS: APIXABAN 5 MG TABLET PO SCH (15:59)
--- NOTE | 2017-12-23 18:10 | Diagnostic Imaging Report ---
PROCEDURE: A single AP view of the chest. COMPARISON: [facility], CT, CT CHEST W, 04/27/2017, 20:12. INDICATIONS: PICC LINE PLACEMENT FINDINGS: See impression. IMPRESSION: 1. interval placement of right-sided PIC line, which has its distal tip projecting in the distal SVC. 2. Lungs are clear. Cardiac silhouette is unremarkable. Pulmonary vasculature is normal. Remi Garvin M.D. Dictated by: Remi Garvin M.D. on 12/23/2017 at 18:12 Electronically approved by: Remi Garvin M.D. on 12/23/2017 at 18:12
[2017-12-24] VITALS (9 sets, daily range): BP systolic 143–185; BP diastolic 56–88
[2017-12-24] MEDS: MORPHINE SULFATE 2 MG/ML SYR IV PRN ×4 (03:11→20:24)
[2017-12-24] MEDS: LEVOFLOXACIN 500MG/D5W 100ML 100 ML IV SCH (03:28)
[2017-12-24 06:44] LABS: BASOPHILS % 0.3 % (0.0-1.0); EOSINOPHILS # (AUTO) 0.2 (0.0-0.4); EOSINOPHILS % 3.6 % (0.0-6.0); HEMATOCRIT 39.6 % (38.2-49.6); HEMOGLOBIN 13.8 g/dL (14.0-18.0); LYMPHOCYTES % 32.8 % (18.0-39.1); MEAN CORPUSCULAR HEMOGLOBIN 29.7 pg (28-32); MEAN CORPUSCULAR HGB CONC 34.8 g/dL (31-35); MEAN CORPUSCULAR VOLUME 85.2 fL (81-99); MONOCYTES # (AUTO) 0.6 (0.2-0.8); MONOCYTES % 9.6 % (4.4-11.3); NEUTROPHILS # (AUTO) 3.3 (2.1-6.9); NEUTROPHILS % 53.5 % (38.7-80.0); PLATELET COUNT 173 x10e3/uL (140-360); RED BLOOD COUNT 4.65 x10e6/uL (4.3-5.7); RED CELL DISTRIBUTION WIDTH 11.8 % (11.7-14.4)
[2017-12-24 06:58] LABS: ANION GAP 11.7 mmol/L (8-16); BLOOD UREA NITROGEN 12 mg/dL (7-26); BUN/CREATININE RATIO 16 (6-25); CALCIUM 9.3 mg/dL (8.4-10.2); CARBON DIOXIDE 25 mmol/L (22-29); CHLORIDE 104 mmol/L (98-107); CREATININE, SERUM 0.77 mg/dL (0.72-1.25); EST GLOMERULAR FILTRATION RATE > 60 ML/MIN (60-); GLUCOSE 115 mg/dL (74-118); POTASSIUM 3.7 mmol/L (3.5-5.1); SODIUM 137 mmol/L (136-145)
[2017-12-24] MEDS: APIXABAN 5 MG TABLET PO SCH (08:46)
[2017-12-24] MEDS: LOSARTAN POTASSIUM 25 MG TAB PO SCH (08:46)
[2017-12-24] MEDS ORDERED: LOSARTAN POTASSIUM 25 MG TAB PO SCH (09:00)
[2017-12-24] MEDS ORDERED: VANCOMYCIN IV SCH (09:45)
[2017-12-24] MEDS ORDERED: [UNRECOGNIZED DRUG - OTHER] IV SCH (09:45)
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
[2017-12-24] MEDS: VANCOMYCIN HCL 1.5 GM in SODIUM CHLORIDE 0.9% 250ML 300 ML IV SCH (20:22)
[2017-12-25] VITALS: BP 154/79
[2017-12-25] MEDS ORDERED: MORPHINE SULFATE 2 MG/ML SYR ONE ×3 (00:30→09:14)
[2017-12-25] MEDS: MORPHINE SULFATE 4 MG/ML SYR IV PRN ×2 (00:34→04:55)
[2017-12-25] MEDS: LEVOFLOXACIN 500MG/D5W 100ML 100 ML IV SCH (02:29)
[2017-12-25 04:00] VITALS: BP 137/76
[2017-12-25 07:56] VITALS: BP 127/75
[2017-12-25] MEDS: LOSARTAN POTASSIUM 25 MG TAB PO SCH (08:50)
[2017-12-25] MEDS: VANCOMYCIN HCL 1.5 GM in SODIUM CHLORIDE 0.9% 250ML 300 ML IV SCH (09:18)
[2017-12-25] MEDS: APIXABAN 5 MG TABLET PO SCH (09:28)
[2017-12-25 10:54] VITALS: BP 127/75
[2017-12-25 11:54] VITALS: BP 147/78
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
== END 2017-12-25 14:39 | disposition home or self-care (01) | DRG 558 ==
LOC: ER 17:45 → ERHOLD 12-23 00:32 → IMCU 12-23 01:54 → MED/SURG3 12-23 01:55
PROVIDERS: ADMIT Internal Medicine; ATTEND Internal Medicine
PROC: 02HV33Z Insertion of Infusion Device into Superior Vena Cava, Percutaneous Approach (ICD-10-PCS; principal; 2017-12-23)
CPT/HCPCS: 36415; 36569; 71045; 80048; 80053; 80202; 82550; 82553; 83605; 84484; 85025; 85610; 85730; 87040; 87071; 87205; 99284; J1956; J2270; J3370; J7030; J7050; Q9967

== ENCOUNTER 2018-05-11 22:43 | Emergency (ER) | payer SELFPAY ==
[~2018-05-11] VITALS: Ht 185.4 cm; Wt 95.3 kg
[~2018-05-11 22:43] MED LIST changes: +CLINDAMYCIN HC150 MG PO; +ELIQUIS PO
[2018-05-11] MEDS ORDERED: ENOXAPARIN SODIUM INJ 100 MG/ML SYR SC STA (23:02)
[2018-05-11] MEDS ORDERED: ASPIRIN 81 MG CHEW TAB PO ONE (23:15)
[2018-05-11 23:38] LABS: BASOPHILS % 0.3 % (0.0-1.0); EOSINOPHILS # (AUTO) 0.2 (0.0-0.4); EOSINOPHILS % 2.2 % (0.0-6.0); HEMATOCRIT 44.1 % (38.2-49.6); HEMOGLOBIN 15.4 g/dL (14.0-18.0); LYMPHOCYTES # (AUTO) 3.2 (1.0-3.2); LYMPHOCYTES % 47.1 % (18.0-39.1); MEAN CORPUSCULAR HEMOGLOBIN 29.7 pg (28-32); MEAN CORPUSCULAR HGB CONC 34.9 g/dL (31-35); MONOCYTES # (AUTO) 0.4 (0.2-0.8); MONOCYTES % 5.5 % (4.4-11.3); NEUTROPHILS % 44.8 % (38.7-80.0); PLATELET COUNT 200 x10e3/uL (140-360); RED BLOOD COUNT 5.19 x10e6/uL (4.3-5.7); RED CELL DISTRIBUTION WIDTH 12.3 % (11.7-14.4)
[2018-05-11 23:48] LABS: INR 0.84; PROTHROMBIN TIME 12.3 seconds (11.9-14.5)
[2018-05-11 23:49] LABS: PARTIAL THROMBOPLASTIN TIME 27.5 seconds (23.8-35.5)
[2018-05-12 00:14] LABS: ALANINE AMINOTRANSFERASE 19 IU/L (0-55); ALBUMIN 4.4 g/dL (3.5-5.0); ALBUMIN/GLOBULIN RATIO 1.1 (0.8-2.0); ALKALINE PHOSPHATASE 86 IU/L (40-150); BLOOD UREA NITROGEN 17 mg/dL (7-26); BUN/CREATININE RATIO 17 (6-25); CARBON DIOXIDE 23 mmol/L (22-29); CHLORIDE 104 mmol/L (98-107); CREATINE KINASE 128 IU/L (30-200); CREATININE, SERUM 0.98 mg/dL (0.72-1.25); EST GLOMERULAR FILTRATION RATE > 60 ML/MIN (60-); GLUCOSE 124 mg/dL (74-118); SODIUM 140 mmol/L (136-145)
[2018-05-12] MEDS ORDERED: MORPHINE SULFATE 2 MG/ML SYR IV STA (00:53)
[2018-05-12] MEDS ORDERED: ONDANSETRON HCL INJ 2 MG/ML VIAL IV STA (00:53)
--- NOTE | 2018-05-12 01:41 | Diagnostic Imaging Report ---
EXAM: CT Chest WITH contrast 05/12/2018 11:02 PM INDICATION: Pulmonary embolism COMPARISON: None TECHNIQUE: Chest was scanned utilizing a multidetector helical scanner from the lung apex through the level of the adrenal glands without administration of IV contrast. Coronal and sagittal reformations were obtained. Pulmonary embolism protocol was performed. IV CONTRAST: 85 mL of Isovue-370 RADIATION DOSE: Total DLP: 610.09 mGy*cm Estimated effective dose: (DLP x 0.014 x size factor) mSv COMPLICATIONS: None FINDINGS: LINES/ TUBES: None. LUNGS AND AIRWAYS: The lungs are unremarkable. Airways are normal. There is evidence of right lower lobe segmental pulmonary embolism which is visualized with linear calcifications within the thrombus suggestive of chronicity (series 2, image 67). Similar findings are noted in the posterior segment of the right upper lobe on series 2, image 40. PLEURA: The pleural spaces are clear. HEART AND MEDIASTINUM: The thyroid gland is normal. No mediastinal, hilar or axillary lymphadenopathy. The heart is normal in size.. There is no pericardial effusion. Aorta and coronary arteries are unremarkable. The pulmonary artery measures 3.2 cm in diameter. UPPER ABDOMEN: Limited non-contrast views of the upper abdomen show no abnormality within the visualized liver, spleen, pancreas, or kidneys. The adrenal glands are normal. BONES: The visualized bony thorax is within normal limits. SOFT TISSUES: Unremarkable. IMPRESSION: 1. The right upper and right lower lobe findings are compatible with chronic pulmonary embolism. 2. No evidence of acute thrombus of the time of interpretation. Signed by: Dr. Stan Espana M.D. on 05/12/2018 1:37 AM
[2018-05-12] MEDS ORDERED: SODIUM CHLORIDE 0.9% 50ML 50 ML ONE (02:35)
[2018-05-12] MEDS ORDERED: IOPAMIDOL 370 MG/ML 200 ML INFUS..BTL INJ ONE (02:35)
[2018-05-12 03:09] VITALS: BP 130/83
[2018-05-12] MEDS ORDERED: TYLENOL WITH C1 EACH PO (03:31)
[2018-05-12] MEDS ORDERED: CYCLOBENZAPRINE5 MG PO (03:31)
== END 2018-05-12 03:41 | disposition home or self-care (01) ==
LOC: ER 22:43
DX: R07.89 Other chest pain (principal); S29.012A Strain of muscle and tendon of back wall of thorax, initial encounter; R73.9 Hyperglycemia, unspecified; I10 Essential (primary) hypertension; Z86.711 Personal history of pulmonary embolism
CPT/HCPCS: 36415; 71260; 80053; 82550; 82553; 84484; 85025; 85610; 85730; 93005; 99284; J1650; J2270; J2405; Q9967

== ENCOUNTER 2018-09-15 18:36 | Emergency (ER) | payer BC, OTHER ==
--- OUTSIDE RECORDS SUMMARY | 2018-09-15 18:39 | XMS REPORT | Clinical Summary ---
Author Author [facility] Address Unknown Phone Unavailable Care Team Providers Care Board Finisher Name Role Phone Ruiz Moore PCP Unavailable Allergies Comments Active Allergy Reactions Severity Noted Date Amoxicillin-Pot Rash High 05/30/2013 Clavulanate Cephalexin Rash High 05/30/2013 Tramadol Itching Medium 05/22/2014 Medications End Date Status Medication Sig Dispensed Refills Start Date Active apixaban (ELIQUIS) 5 mg Take 5 mg by 0 Tab tablet mouth 2 (two) times daily. 08/23/2018 Discontinued aspirin 81 MG EC tablet Take 81 mg by 0 mouth daily. 08/23/2018 Discontinued rivaroxaban (XARELTO) 20 Take 1 tablet 30 tablet 11 12/26/201 mg Tab tablet (20 mg total) 7 by mouth daily. 08/23/2018 Discontinued losartan (COZAAR) 50 MG Take 50 mg by 0 tablet mouth daily. Active Problems Problem Noted Date Acute pulmonary embolism 12/22/2016 RUQ pain 12/22/2016 Chest pain 12/19/2014 History of pulmonary embolism 12/19/2014 Pulmonary embolism 12/01/2014 Abdominal pain 06/26/2014 Chest pain, mid sternal 06/29/2013 SOB (shortness of breath) 05/30/2013 Encounters Care Team Description Date Type Specialty Jose Herbert MD Strain of right knee, initial encounter (Primary Dx) 08/23/2018 Emergency Emergency Medicine 08/23/2018 Travel after 09/14/2017 Family History Medical History Relation Name Comments Diabetes Father Hypertension Father Hypertension Mother Relation Name Status Comments Father Mother Social History Date Tobacco Use Types Packs/Day Years Used Never Smoker Smokeless Tobacco: Never Used Alcohol Use Drinks/Week oz/Week Comments Yes socially Sex Assigned at Date Recorded Not on file Industry Job Start Date Occupation Not on file Not on file Not on file Travel End Travel History Travel Start No recent travel history available. Last Filed Vital Signs Time Taken Vital Sign Reading 08/23/2018 4:32 PM [employer] Blood Pressure 146/85 08/23/2018 4:32 PM [employer] Pulse 70 08/23/2018 2:50 PM [employer] Temperature 37.1 C (98.8 F) 08/23/2018 4:32 PM [employer] Respiratory Rate 20 08/23/2018 4:32 PM [employer] Oxygen Saturation 98% - Inhaled Oxygen - Concentration 08/23/2018 2:50 PM [employer] Weight 98.8 kg (217 lb 14.4 oz) 08/23/2018 2:50 PM [employer] Height 185.4 cm (6' 1") 08/23/2018 2:50 PM [employer] Body Mass Index 28.75 Plan of Treatment Not on file Procedures Comments Procedure Name Priority Date/Time Associated Diagnosis XR KNEE RIGHT COMPLETE (4 STAT 08/23/2018 VIEWS) 3:24 PM [employer] after 09/14/2017 Results * XR knee complete 4 views right (08/23/2018 3:24 PM [employer]) Narrative Performed At FINAL REPORT [facility] COMPARISON: None TECHNIQUE: Multipleviews ofthe right knee. FINDINGS: There are no acute fractures or dislocations.No radiopaque foreign bodies. Joint spaces are maintained. No lytic or blastic lesions. Suprapatellar joint effusion suspected. IMPRESSION: No acute bony abnormality. Signed: Mar Weller MD Report Verified Date/Time:08/23/2018 15:28:47 Reading Location: [address] Reading Room Procedure Note Interface, External Ris In - 08/23/2018 3:31 PM [employer] FINAL REPORT COMPARISON: None TECHNIQUE: Multiple views of the right knee. FINDINGS: There are no acute fractures or dislocations. No radiopaque foreign bodies. Joint spaces are maintained. No lytic or blastic lesions. Suprapatellar joint effusion suspected. IMPRESSION: No acute bony abnormality. Signed: Mar Weller MD Report Verified Date/Time: 08/23/2018 15:28:47 Reading Location: [facility] C013T Transitional Reading Room Performing Organization Address City/State/Zipcode Phone Number GE RIS after 09/14/2017 Insurance Payer Benefit Subscriber ID Type Phone Address Plan / Group GENERIC WORK[employer] COMP GENERIC xxxx-xxxx WORKERS[employer] COMP Advance Directives For more information, please contact: [address] [address] Date Inactivated Comments Code Status Date Activated 12/28/2016 1:16 PM Full Code 12/22/2016 10:47 PM This code status was determined by: Patient 09/07/2016 9:02 PM Full Code 09/01/2016 10:56 AM This code status was determined by: Patient 12/08/2014 5:33 PM Full Code 12/07/2014 12:42 AM This code status was determined by: Patient 05/26/2014 12:39 PM Full Code 05/22/2014 10:47 AM This code status was determined by: Patient 03/09/2014 7:13 PM Full Code 03/06/2014 11:52 PM This code status was determined by: Patient
[2018-09-15] MEDS ORDERED: ASPIRIN 81 MG CHEW TAB PO ONE (19:30)
[2018-09-15 19:52] LABS: BASOPHILS % 0.2 % (0.0-1.0); EOSINOPHILS # (AUTO) 0.1 (0.0-0.4); EOSINOPHILS % 1.9 % (0.0-6.0); HEMATOCRIT 47.2 % (38.2-49.6); HEMOGLOBIN 16.3 g/dL (14.0-18.0); LYMPHOCYTES # (AUTO) 2.2 (1.0-3.2); LYMPHOCYTES % 35.5 % (18.0-39.1); MEAN CORPUSCULAR HEMOGLOBIN 28.7 pg (28-32); MEAN CORPUSCULAR HGB CONC 34.5 g/dL (31-35); MEAN CORPUSCULAR VOLUME 83.1 fL (81-99); MONOCYTES # (AUTO) 0.5 (0.2-0.8); MONOCYTES % 8.2 % (4.4-11.3); NEUTROPHILS # (AUTO) 3.4 (2.1-6.9); PLATELET COUNT 191 x10e3/uL (140-360); RED BLOOD COUNT 5.68 x10e6/uL (4.3-5.7); RED CELL DISTRIBUTION WIDTH 12.4 % (11.7-14.4)
[2018-09-15 19:57] LABS: INR 0.84; PROTHROMBIN TIME 12.3 seconds (11.9-14.5)
[2018-09-15 19:58] LABS: PARTIAL THROMBOPLASTIN TIME 28.4 seconds (23.8-35.5)
[2018-09-15 20:06] LABS: ALANINE AMINOTRANSFERASE 22 IU/L (0-55); ALBUMIN 4.1 g/dL (3.5-5.0); ALBUMIN/GLOBULIN RATIO 1.2 (0.8-2.0); ALKALINE PHOSPHATASE 89 IU/L (40-150); AMYLASE 60 U/L (25-125); ANION GAP 15.8 mmol/L (8-16); BLOOD UREA NITROGEN 20 mg/dL (7-26); BUN/CREATININE RATIO 22 (6-25); CALCIUM 9.3 mg/dL (8.4-10.2); CARBON DIOXIDE 22 mmol/L (22-29); CHLORIDE 103 mmol/L (98-107); CREATINE KINASE 77 IU/L (30-200); CREATININE, SERUM 0.92 mg/dL (0.72-1.25); EST GLOMERULAR FILTRATION RATE > 60 ML/MIN (60-); GLUCOSE 108 mg/dL (74-118); LIPASE 37 U/L (8-78); MAGNESIUM 2.5 MG/DL (1.3-2.1); POTASSIUM 3.8 mmol/L (3.5-5.1); SODIUM 137 mmol/L (136-145)
--- NOTE | 2018-09-15 20:19 | Diagnostic Imaging Report ---
EXAMINATION: CHEST 2 VIEWS INDICATION: Right upper quadrant pain. Rib pain. ^chest discomfort ^[id number] ^2004 COMPARISON: CT scan May 12, 2018 FINDINGS: TUBES and LINES: None. LUNGS: Lungs are well inflated. Lungs are clear. There is no evidence of pneumonia or pulmonary edema. PLEURA: No pleural effusion or pneumothorax. HEART AND MEDIASTINUM: The cardiomediastinal silhouette is unremarkable. BONES AND SOFT TISSUES: No acute osseous lesion. Soft tissues are unremarkable. UPPER ABDOMEN: No free air under the diaphragm. IMPRESSION: No acute thoracic abnormality. Signed by: Dr. Mane Kunz M.D. on 09/15/2018 8:16 PM
[2018-09-15] MEDS ORDERED: ONDANSETRON HCL INJ 2MG/ML 2ML 2 MG/ML VIAL IV NR (21:00)
[2018-09-15] MEDS ORDERED: HYDROMORPHONE 2MG/ML 2 MG/ML ML IV NR (21:00)
--- NOTE | 2018-09-15 21:43 | Diagnostic Imaging Report ---
EXAM: CT Abdomen and Pelvis WITH contrast INDICATION: Pain COMPARISON: None. TECHNIQUE: Abdomen and Pelvis was scanned utilizing a multidetector helical scanner after administration of IV contrast. Coronal and sagittal reformations were obtained. IV CONTRAST: 100 mL Isovue-370 COMPLICATIONS: None RADIATION DOSE: Total DLP:525 mGy*cm Estimated effective dose: (DLP x 0.015 x size factor) mSv CTDIvol has been reviewed. It is below the limits set by the Radiation Protocol Committee (RPC). Appropriate CT dose reduction techniques were utilized. FINDINGS: Abdomen: Lung Bases: Atelectasis lung bases. Solid Organs: Questionable mild hepatic steatosis. Otherwise, liver, adrenals, kidneys, spleen, and pancreas unremarkable. Upper GI Tract: No small bowel obstructive changes. Vascularity: No aortic aneurysm. IVC filter present. Lymph Nodes: No suspicious adenopathy. Other: None. Pelvis: Bladder: Unremarkable. Other: None. Colon: Colonic decompression limits evaluation. No distinct acute colonic findings. Appendix not inflamed. Bones: No acute findings. IMPRESSION: 1. No acute findings. Signed by: Dr. Adrian Gay MD on 09/15/2018 9:40 PM
[2018-09-15] MEDS ORDERED: SODIUM CHLORIDE 0.9% 50ML 50 ML ONE (22:35)
[2018-09-15] MEDS ORDERED: IOPAMIDOL 370 MG/ML 200 ML INFUS..BTL INJ ONE (22:35)
[2018-09-15 22:54] VITALS: BP 130/88
== END 2018-09-15 22:56 | disposition home or self-care (01) ==
LOC: ER 18:36
DX: R10.11 Right upper quadrant pain (principal); R11.2 Nausea with vomiting, unspecified; R19.7 Diarrhea, unspecified
CPT/HCPCS: 36415; 71046; 74177; 80053; 82150; 82550; 82553; 83690; 83735; 83880; 84484; 85025; 85610; 85730; 93005; 99284; J1170; J2405; Q9967

== ENCOUNTER 2019-01-15 11:31 | Emergency (ER) | payer OTHER ==
[~2019-01-15] VITALS: Ht 185.4 cm; Wt 95.3 kg
[2019-01-15] MEDS ORDERED: HEPARIN 25,000 UNIT 25,000 UNIT in DEXTROSE 5% 250ML 250 ML IV STA (11:44)
[2019-01-15] MEDS ORDERED: HEPARIN 25,000 UNIT 1,500 UNIT in DEXTROSE 5% 250ML 250 ML IV SCH ×4 (11:45)
[2019-01-15] MEDS ORDERED: HEPARIN SOD (PORCINE) 5,000 UNIT/ML VIAL IV ONE (11:45)
[2019-01-15] MEDS ORDERED: POTASSIUM CHLORIDE 20 MEQ TAB CR PO STA (11:48)
[2019-01-15] MEDS ORDERED: POTASSIUM CHLORIDE 20MEQ/100ML 100 ML IV ONE (12:00)
[2019-01-15] MEDS ORDERED: HYDROMORPHONE 1MG/1ML INJ IV STA ×2 (12:23→13:29)
[2019-01-15] MEDS ORDERED: ONDANSETRON HCL INJ 2MG/ML 2ML 2 MG/ML VIAL IV STA (12:23)
[2019-01-15] MEDS ORDERED: HYDROMORPHONE 2MG/ML 2 MG/ML ML IV ONE ×2 (12:30→13:45)
[2019-01-15 12:31] LABS: ALANINE AMINOTRANSFERASE 22 IU/L (0-55); ALBUMIN 3.9 g/dL (3.5-5.0); ALBUMIN/GLOBULIN RATIO 1.3 (0.8-2.0); ALKALINE PHOSPHATASE 80 IU/L (40-150); ANION GAP 12.8 mmol/L (8-16); BLOOD UREA NITROGEN 8 mg/dL (7-26); BUN/CREATININE RATIO 9 (6-25); CALCIUM 9.2 mg/dL (8.4-10.2); CARBON DIOXIDE 22 mmol/L (22-29); CHLORIDE 104 mmol/L (98-107); CREATINE KINASE 877 IU/L (30-200); CREATININE, SERUM 0.92 mg/dL (0.72-1.25); EST GLOMERULAR FILTRATION RATE > 60 ML/MIN (60-); GLUCOSE 117 mg/dL (74-118); POTASSIUM 3.8 mmol/L (3.5-5.1); SODIUM 135 mmol/L (136-145)
[2019-01-15 12:36] LABS: BASOPHILS % 0.2 % (0.0-1.0); EOSINOPHILS % 0.1 % (0.0-6.0); HEMATOCRIT 41.7 % (38.2-49.6); HEMOGLOBIN 13.9 g/dL (14.0-18.0); LYMPHOCYTES # (AUTO) 1.1 (1.0-3.2); MEAN CORPUSCULAR HEMOGLOBIN 28.8 pg (28-32); MEAN CORPUSCULAR HGB CONC 33.3 g/dL (31-35); MEAN CORPUSCULAR VOLUME 86.3 fL (81-99); MONOCYTES # (AUTO) 1.7 (0.2-0.8); MONOCYTES % 13.8 % (4.4-11.3); NEUTROPHILS # (AUTO) 9.3 (2.1-6.9); NEUTROPHILS % 76.4 % (38.7-80.0); PLATELET COUNT 161 x10e3/uL (140-360); RED BLOOD COUNT 4.83 x10e6/uL (4.3-5.7); RED CELL DISTRIBUTION WIDTH 13.2 % (11.7-14.4)
[2019-01-15 12:38] LABS: INR 0.98; PROTHROMBIN TIME 13.5 seconds (11.9-14.5)
[2019-01-15] MEDS ORDERED: POTASSIUM CHLORIDE 20 MEQ TAB CR PO SCH (12:48)
--- OUTSIDE RECORDS SUMMARY | 2019-01-15 13:03 | XMS REPORT | Summary of Care ---
Author Author [facility] Organization [facility] Address Unknown Phone Unavailable Encounter HQ Renita_ivy(FIN) [id number] Date(s): 04/22/16 - 07/21/16 [facility] [address] [place] [address]- [place] [phone] Attending Physician: Deangelo Morgan MD Vital Signs No data available for this section Problem List Condition Effective Dates Status Health Status Informant Cough(Confirmed) < 01/19/10 Resolved History of venous Active thrombosis(Confirmed ) Hypertension(Confirm Active ed) Pain(Confirmed) 01/22/10 - 01/17/10 Resolved Pneumonia( ) < 01/17/10 Resolved Allergies, Adverse Reactions, Alerts Substance Reaction Severity Status Augmentin Active Keflex Active Medications No data available for this section Results No data available for this section Immunizations No data available for this section Procedures Procedure Date Related Diagnosis Body Site ACL - Repair of anterior cruciate ligament Tonsillectomy Social History Social History Type Response Smoking Status Never smoker; Exposure to Tobacco Smoke None; Cigarette Smoking Last 365 Days No; Reg Smoking Cessation Counseling No Assessment and Plan No data available for this section
--- OUTSIDE RECORDS SUMMARY | 2019-01-15 13:03 | XMS REPORT | Summary of Care ---
Author Author [facility] Organization [facility] Address Unknown Phone Unavailable Encounter HQ Encntr_alias(FIN) [id number] Date(s): 11/26/17 - 11/26/17 [facility] [address] [facility], [address] [place] [address] [phone]- [phone] Attending Physician: Damien Jarquin MD Vital Signs No data available for this section Problem List Condition Effective Dates Status Health Status Informant Cough(Confirmed) < 01/19/10 Resolved History of venous Active thrombosis(Confirmed ) Hypertension(Confirm Active ed) Hypertriglyceridemia Active (Confirmed) Pain(Confirmed) 01/22/10 - 01/17/10 Resolved Pneumonia( ) < 01/17/10 Resolved 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) Allergies, Adverse Reactions, Alerts Substance Reaction Severity Status Keflex Active Augmentin Active Medications No data available for this section Results No data available for this section Immunizations No data available for this section Procedures Procedure Date Related Diagnosis Body Site Status ACL - Repair of anterior cruciate ligament Completed Tonsillectomy Completed Social History Social History Type Response Smoking Status Never smoker; Exposure to Tobacco Smoke None; Cigarette Smoking Last 365 Days No; Reg Smoking Cessation Counseling No entered on: 03/26/17 Assessment and Plan No data available for this section
--- OUTSIDE RECORDS SUMMARY | 2019-01-15 13:03 | XMS REPORT | Summary of Care ---
Author Author [facility] Organization [facility] Address Unknown Phone Unavailable Encounter HQ Po(FIN) [id number] Date(s): 10/31/17 - 01/29/18 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) Allergies, Adverse Reactions, Alerts Substance Reaction Severity Status Keflex Active Augmentin Active traMADol Active Medications No data available for this section Results No data available for this section Immunizations Given and Recorded Vaccine Date Status Refusal Reason diphtheria/pertussis, acel/tetanus adult 12/18/17 Given Procedures Procedure Date Related Diagnosis Body Site Status ACL - Repair of anterior cruciate ligament Completed Tonsillectomy Completed Social History Social History Type Response Smoking Status Never smoker; Exposure to Tobacco Smoke None; Cigarette Smoking Last 365 Days No; Reg Smoking Cessation Counseling No entered on: 12/19/17 Assessment and Plan No data available for this section
--- OUTSIDE RECORDS SUMMARY | 2019-01-15 13:03 | XMS REPORT | Continuity of Care Document ---
Author Author [facility] Organization Interface Address Unknown Phone Unavailable Problems Problem Status Onset Date Classification Date Reported Comments Source S83.511A - SPRAIN OF ANTERIOR CRUCIATE L Active 09/01/2018 [facility] LEFT ARM PAIN Active 12/22/2017 [facility] WOUND INFECTION Active 12/19/2017 [facility] FALL Active 12/18/2017 [facility] Blunt head injury 12/18/2017 12/21/2017 [facility] Laceration of elbow, left 12/18/2017 12/21/2017 [facility] Cervical strain 12/18/2017 12/21/2017 [facility] On apixaban therapy 12/18/2017 12/21/2017 [facility] ANNUAL PHYSICAL Active 10/31/2017 [facility] Pulmonary embolism Active 05/22/2015 Problem 09/16/2018 [facility] Pain Resolved 01/22/2010 Problem 09/19/2018 [facility] Cough Resolved 01/19/2010 Problem 09/19/2018 [facility] Pneumonia Resolved 01/17/2010 Problem 09/19/2018 [facility] History of venous thrombosis Active Problem 09/19/2018 [facility] Hypertension Active Problem 09/19/2018 [facility] Hypertriglyceridemia Active Problem 09/19/2018 [facility] Encounter for cardiothoracic icu rn health examination Active Problem 09/19/2018 [facility] Cellulitis of left forearm Active Problem 09/16/2018 [facility] XRAY Active [facility] Medications Medication Details Route Status Patient Instructions Ordering Provider Order Date Source Acetaminophen 300 MG / Codeine Phosphate 30 MG Oral Tablet [Tylenol with Codeine #3] 1 tab, PO, Q6H, PRN Pain, X 4 day, # 17 tab, 0 Refill(s) Active 12/19/2017 [facility] Zofran 4 mg, Route: IVP, Drug form: INJ, ONCE, Dosing Weight 95.455, kg, Priority: STAT, Start date: 12/18/17 19:40:00 CDT, Stop date: 12/18/17 19:40:00 CDT Inactive 12/19/2017 [facility] Morphine 4 mg, Route: IVP, ONCE, Dosing Weight 95.455, kg, Priority: STAT, Start date: 12/18/17 19:40:00 CDT, Stop date: 12/18/17 19:40:00 CDT Inactive 12/19/2017 [facility] Zofran ODT 4 mg, Route: PO, Drug form: TABDIS, ONCE, Dosing Weight 95.455, kg, Priority: STAT, Start date: 12/18/17 19:32:00 CDT, Stop date: 12/18/17 19:32:00 CDT Inactive 12/19/2017 [facility] Morphine 4 mg, Route: IM, ONCE, Dosing Weight 95.455, kg, Priority: STAT, Start date: 12/18/17 19:32:00 CDT, Stop date: 12/18/17 19:32:00 CDT Inactive 12/19/2017 [facility] tramadol hydrochloride 50 MG Oral Tablet [Ultram] 50 mg=1 tab, PO, Q4H, PRN pain, X 3 day, # 20 tab, 0 Refill(s) Active 12/19/2017 [facility] Acetaminophen 325 MG / Hydrocodone Bitartrate 10 MG Oral Tablet [[place] 10/325] 1 tab, Route: PO, Drug Form: TAB, Dosing Weight 95.455, kg, ONCE, STAT, Start date: 12/18/17 17:53:00 CDT, Stop date: 12/18/17 17:53:00 CDTNotes: Do not exceed 4gm/day of acetaminophen. (Same as: [place] 325/10) Inactive 12/18/2017 [facility] Saline Flush 0.9% 10 mL, Route: IVP, Drug Form: INJ, Dosing Weight 95.455, kg, PRN, PRN Line Flush, Start date: 12/18/17 17:42:00 CDT, Duration: 30 day, Stop date: 01/17/18 17:41:00 CDTNotes: (Same as: BD Posiflush) Inactive 12/18/2017 [facility] Enoxaparin Sodium 100 Mg/1 Ml Disp.syrin, 90 Mg Subcutaneously Daily Active 10/16/2016 [facility] Losartan Potassium 25 Mg Tablet, 50 Mg Oral Bedtime Active 10/16/2016 [facility] Enoxaparin Sodium 100 Mg/1 Ml Disp.syrin, 100 Mg Subcutaneously Daily Active 06/22/2016 [facility] Acetaminophen With Codeine (Tylenol With Codeine #3 Tablet) 1 Each Tablet, 300 Mg Oral Every 6 Hours as needed for Pain Active [facility] 01/30/2016 [facility] Cyclobenzaprine Hcl (Flexeril) 5 Mg Tablet, 5 Mg Oral Three Times A Day Active [facility] 01/30/2016 [facility] Fondaparinux Sodium (Arixtra) 10 Mg/0.8 Ml Disp.syrin, 10 Mg Sub-Q Daily Active [facility] 01/30/2016 [facility] Warfarin Sodium (Coumadin) 5 Mg Tablet, 10 Mg Oral Today At 5:00PM Active 01/30/2016 [facility] Acetaminophen With Codeine (Tylenol With Codeine #3 Tablet) 1 Each Tablet, 1 Tab Oral As Needed Active 01/26/2016 [facility] Fondaparinux Sodium (Arixtra) 10 Mg/0.8 Ml Disp.syrin, 10 Mg Sub-Q Bedtime Active 01/26/2016 [facility] Acetaminophen With Codeine (Tylenol With Codeine #3 Tablet) 1 Each Tablet Every 6 Hours as needed for Pain Active [facility] Clindamycin Hcl 150 Mg Capsule Three Times A Day Active [facility] Cyclobenzaprine Hcl (Flexeril) 5 Mg Tablet Every 8 Hours as needed for Pain Active [facility] Eliquis Twice A Day Active [facility] Losartan Potassium 25 Mg Tablet Daily Active [facility] Allergies, Adverse Reactions, Alerts Substance Category Reaction Severity Reaction type Status Date Reported Comments Source amoxicillin trihydrate Unknown Allergy to Substance Active 12/22/2017 [facility] potassium clavulanate Unknown Allergy to Substance Active 12/22/2017 [facility] Cephalexin Monohydrate Unknown Allergy to Substance Active 12/22/2017 [facility] Tramadol Unknown Allergy to Substance Active 12/22/2017 [facility] Keflex Assertion Drug allergy Active [facility] Augmentin Assertion Drug allergy Active [facility] traMADol Assertion Drug allergy Active [facility] Immunizations Immunization Date Given Site Status Last Updated Comments Source diphtheria/pertussis, acel/tetanus adult 12/18/2017 Right Deltoid completed [facility] diphtheria/pertussis, acel/tetanus adult 12/18/2017 Right Deltoid completed [facility], [facility] diphtheria/pertussis, acel/tetanus adult 12/18/2017 Right Deltoid completed [facility] Results Order Name Results Value Reference Range Date Interpretation Comments Source Knee wo contrast MRI Knee wo contrast MRI EXAMINATION: MRI of the right knee without contrast HISTORY: S83.511A Sprain of anterior cruciate ligament of right knee, initial encounter; right knee pain; right knee medial meniscus tear; right knee patellofemoral compartment chondrosis COMPARISON: There are no radiographs available for review. TECHNIQUE: Multiplanar, multisequence magnetic resonance imaging of the right knee is performed with an extremity coil without contrast. FINDINGS: Menisci: --Medial: There is a horizontal tear involving the posterior horn of the medial meniscus, extending from the body/posterior horn junction to the posterior root, with extension to the superior articular surface. --Lateral: The anterior horn, body, and posterior horn are intact. Ligaments: The cruciate ligaments are intact. The medial collateral ligament and lateral collateral ligament complex are intact. Extensor mechanism: There is mild distal quadriceps and mild diffuse patellar tendinosis. The extensor mechanism is intact. Muscles: There is normal signal intensity and muscle bulk of the musculature at the knee. Cartilage: Within the medial and lateral compartments, there is no focal chondrosis or subchondral marrow edema. Within the patellofemoral compartment, there is deep partial thickness chondrosis involving the central trochlea with underlying subchondral edema and cystic change. There is a focal chondral blistering involving the patella at the junction of the medial and odd patellar facets. Bone: Again, there are foci of subchondral edema and cystic change along the central trochlea. There is no acute fracture. There are no suspicious bone marrow replacing lesions. Soft tissues: There is a physiologic amount of fluid within the knee. There is no Van's cyst. There is minimal soft tissue edema within Hoffa's fat pad. IMPRESSION: 1. Horizontal tear involving the posterior horn of the right knee medial meniscus as described above with extension to the superior articular surface. 2. Right knee patellofemoral compartment chondrosis as described above, including deep partial thickness chondrosis along the central trochlea with underlying subchondral edema and cystic change, as well as, focal chondral blistering involving the patella at the junction of the medial and odd patellar facets. 3. Mild distal right quadriceps and mild diffuse right patellar tendinosis without tendon tear. 4. Intact right knee cruciate and collateral ligaments without medial or lateral compartment chondrosis. 09/17/2018 - - Read by: Adrian Logan MD Dictated Date/time: 09/17/18 13:35 Electronically Signed by: Adrian Logan MD 09/17/18 13:44 FINAL REPORT [facility] Blood leukocytes automated count (number/volume) 6.31 4.8 - 10.8 09/15/2018 [facility] Blood erythrocytes automated count (number/volume) 5.68 4.3 - 5.7 09/15/2018 [facility] Blood hemoglobin measurement (moles/volume) 16.3 14.0 - 18.0 09/15/2018 [facility] Automated blood hematocrit (volume fraction) 47.2 38.2 - 49.6 09/15/2018 [facility] Automated erythrocyte mean corpuscular volume 83.1 81 - 99 09/15/2018 [facility] Automated erythrocyte mean corpuscular hemoglobin (mass per erythrocyte) 28.7 28 - 32 09/15/2018 [facility] Automated erythrocyte mean corpuscular hemoglobin concentration measurement (mass/volume) 34.5 31 - 35 09/15/2018 [facility] RDW BldCo-Rto 12.4 11.7 - 14.4 09/15/2018 [facility] Automated blood platelet count (count/volume) 191 140 - 360 09/15/2018 [facility] Automated blood segmented neutrophil count as percentage of total leukocytes 54.0 38.7 - 80.0 09/15/2018 [facility] Automated blood lymphocyte count as percentage ot total leukocytes 35.5 18.0 - 39.1 09/15/2018 [facility] Automated blood monocyte count as percentage of total leukocytes 8.2 4.4 - 11.3 09/15/2018 [facility] Automated blood eosinophil count as percentage of total leukocytes 1.9 0.0 - 6.0 09/15/2018 [facility] Automated blood basophil count as percentage of total leukocytes 0.2 0.0 - 1.0 09/15/2018 [facility] IM GRANULOCYTES % 0.2 0.0 - 1.0 09/15/2018 [facility] Automated blood neutrophil count 3.4 2.1 - 6.9 09/15/2018 [facility] Blood lymphocytes count (number/volume) 2.2 1.0 - 3.2 09/15/2018 [facility] Blood monocytes automated count (number/volume) 0.5 0.2 - 0.8 09/15/2018 [facility] Automated blood eosinophil count 0.1 0.0 - 0.4 09/15/2018 [facility] Automated blood basophil count (count/volume) 0.0 0.0 - 0.1 09/15/2018 [facility] Absolute Immature Granulocyte (auto 0.01 0 - 0.1 09/15/2018 [facility] Prothrombin time (PT) in platelet poor plasma by coagulation assay 12.3 11.9 - 14.5 09/15/2018 [facility] INR in Platelet poor plasma by Coagulation assay 0.84 09/15/2018 [facility] Activated partial thromboplastin time (aPTT) in platelet poor plasma bycoagulation assay 28.4 23.8 - 35.5 09/15/2018 [facility] Serum or plasma sodium measurement (moles/volume) 137 136 - 145 09/15/2018 [facility] Serum or plasma potassium measurement (moles/volume) 3.8 3.5 - 5.1 09/15/2018 [facility] Serum or plasma chloride measurement (moles/volume) 103 98 - 107 09/15/2018 [facility] Serum or plasma carbon dioxide, total measurement (moles/volume) 22 22 - 29 09/15/2018 [facility] Serum or plasma anion gap 15.8 8 - 16 09/15/2018 [facility] Serum or plasma urea nitrogen measurement (mass/volume) 20 7 - 26 09/15/2018 [facility] Serum or plasma creatinine measurement (mass/volume) 0.92 0.72 - 1.25 09/15/2018 [facility] Serum or plasma urea nitrogen/creatinine mass ratio 22 6 - 25 09/15/2018 [facility] Estimated glomerular filtration rate (GFR) determination > 60 60 09/15/2018 [facility] Glucose measurement 108 74 - 118 09/15/2018 [facility] Serum or plasma calcium measurement (mass/volume) 9.3 8.4 - 10.2 09/15/2018 [facility] Serum or plasma magnesium measurement (mass/volume) 2.5 1.3 - 2.1 09/15/2018 [facility] Serum or plasma total bilirubin measurement (mass/volume) 0.5 0.2 - 1.2 09/15/2018 [facility] Aspartate Amino Transf (AST/SGOT) 19 5 - 34 09/15/2018 [facility] Serum or plasma alanine aminotransferase measurement (enzymatic activity/volume) 22 0 - 55 09/15/2018 [facility] Serum or plasma protein measurement (mass/volume) 7.5 6.5 - 8.1 09/15/2018 [facility] Serum or plasma albumin measurement (mass/volume) 4.1 3.5 - 5.0 09/15/2018 [facility] Plasma globulin measurement (mass/volume) 3.4 2.3 - 3.5 09/15/2018 [facility] Serum or plasma albumin/globulin mass ratio 1.2 0.8 - 2.0 09/15/2018 [facility] Serum or plasma alkaline phosphatase measurement (enzymatic activity/volume) 89 40 - 150 09/15/2018 [facility] BNP Bld-mCnc < 10.0 0 - 100 09/15/2018 [facility] Serum or plasma creatine kinase measurement (enzymatic activity/volume) 77 30 - 200 09/15/2018 [facility] Serum or plasma creatine kinase MB measurement (mass/volume) 0.70 0 - 5.0 09/15/2018 [facility] Troponin I measurement by highly sensitive enzyme immunoassay < 0.001 0 - 0.300 09/15/2018 [facility] Serum or plasma amylase measurement (enzymatic activity/volume) 60 25 - 125 09/15/2018 [facility] Serum or plasma lipase measurement (enzymatic activity/volume) 37 8 - 78 09/15/2018 [facility] Serum or plasma trough vancomycin level at trough (mass/volume) 3.8 5.0 - 10.0 12/24/2017 [facility] Lactic Acid Level 8.5 4.5 - 19.8 12/22/2017 [facility] Blood culture NO GROWTH AFTER 5 DAYS, FINAL REPORT 12/22/2017 [facility] Elbow 2 views DX Elbow 2 views DX Clinical Indication: Left elbow laceration with swelling. Comparison: 12/18/2017. Technique: AP and lateral views of the left elbow. Findings: No acute fracture or dislocation. The joint spaces appear preserved. No osseous lesions. No posterior fat pad to suggest the presence of a joint effusion. No foreign body. IMPRESSION: Unremarkable left elbow. ALAINA: NLNABILMANPrincess 12/20/2017 - - Read by: Ronnie Peterson MD Dictated Date/time: 12/20/17 03:58 Electronically Signed by: Ronnie Peterson MD 12/20/17 04:00 FINAL REPORT [facility] Spine cervical wo contrast CT Spine cervical wo contrast CT Clinical Indication: - trauma; landed on bed of rock striking back of head Comparison: None Technique: Multi-detector CT imaging of the cervical spine is performed. Coronal and sagittal reconstructions were obtained. CT Radiation Dose DLP 732.85 mGy-cm FINDINGS: ALIGNMENT AND GENERAL ASSESSMENT: There is normal alignment of the cervical spine. There are no fractures or subluxations. The craniocervical junction is normal. The atlanto-dental alignment appears unremarkable. The posterior elements and spinous processes are unremarkable. The facet joint, spinolaminar and spinous process alignment are normal. DISK SPACES AND SOFT TISSUES: The prevertebral soft tissues are normal. C2-C3 to C7-T1 disc space levels show no definite disc protrusions on CT. There is no central or foraminal stenosis. MRI is the gold standard to assess for disk disease. VISUALIZED LUNG APICES: Unremarkable. CT myelogram or MRI of the cervical spine may be performed, if there is further concern. IMPRESSION: No fractures or subluxations of the cervical spine. SL: [id number] 12/18/2017 - - Read by: Raad Duggan MD Dictated Date/time: 12/18/17 19:05 Electronically Signed by: Raad Duggan MD 12/18/17 19:11 FINAL REPORT [facility] Brain wo contrast CT Brain wo contrast CT Clinical Indication: - trauma. Comparison: None. TECHNIQUE: CT images were obtained from the foramen magnum to the vertex without the use of intravenous contrast on a multidetector CT. CT imaging was performed with exposure control parameters to reduce radiation dose. Coronal and sagittal reconstructions were obtained. CT radiation dose DLP: 1104.57 mGy-cm FINDINGS: BRAIN PARENCHYMA: The brain parenchyma is normal with normal ratliff and white interfaces. The periventricular white matter appears unremarkable. No focal mass lesions on this noncontrast head CT. No mass effect, midline shift or edema. There are no intra-axial or extra-axial fluid collections, intraventricular or intraparenchymal hemorrhage. No low attenuation demarcating areas on this non- contrast CT to suggest subacute stroke. VENTRICLES: The lateral ventricles, third and fourth ventricles appear unremarkable. The basilar cisterns are normal. ORBITS, MASTOIDS AND PARANASAL SINUSES: The visualized orbits are unremarkable. The visualized paranasal sinuses are unremarkable. The mastoid air cells are clear. SKULL: There are no osseous abnormalities. If there is further concern for intracranial pathology or acute stroke, MRI of the brain may be performed for complete assessment. IMPRESSION: No acute intracranial hemorrhage or mass effect. No calvarial fracture. SL: [id number] 12/18/2017 - - Read by: Clarita Holley MD Dictated Date/time: 12/18/17 19:14 Electronically Signed by: Clarita Holley MD 12/18/17 19:21 FINAL REPORT [facility] Elbow 3 views DX Elbow 3 views DX Exam: Left Elbow 3 views DX Clinical Indication: Left elbow pain, patient fell and landed on rocks. Comparison: None. FINDINGS: The 3 views of the elbow show normal alignment without fractures or dislocations. The joint spaces are normal. There is no joint effusion. The radial head, olecranon and distal humeral condyle regions are unremarkable. There is mild olecranon region soft tissue swelling. There are no radiopaque foreign bodies. If there is further concern, recommend follow-up radiographs or MRI for complete assessment. IMPRESSION: 1. No fractures or dislocation of the left elbow. SL: [id number] 12/18/2017 - - Read by: Guerrero Salmeron DO Dictated Date/time: 12/18/17 18:13 Electronically Signed by: Guerrero Salmeron DO 12/18/17 18:14 FINAL REPORT [facility] Pelvis AP DX Pelvis AP DX Clinical Indication: - trauma. Patient fell and landed on rocks Comparison: None. FINDINGS: The AP pelvis radiograph shows no fractures or dislocations of the pelvis. The pelvic and obturator rings are intact. The pubic rami are intact. The symphysis pubis and sacroiliac joints are unremarkable. The visualized sacral foramina are unremarkable. The hip joint spaces, proximal femoral regions and acetabular regions are unremarkable. If there is further concern, recommend follow-up radiographs or bone scan for complete assessment. IMPRESSION: 1. Unremarkable AP pelvis radiograph. : [id number] 12/18/2017 - - Read by: Guerrero Salmeron DO Dictated Date/time: 12/18/17 18:13 Electronically Signed by: Guerrero Salmeron DO 12/18/17 18:13 FINAL REPORT [facility] 1view DX Chest 1view DX Clinical Indication: Patient fell and landed on rocks Comparison: 10/31/2017 FINDINGS: The frontal chest radiograph shows normal lung volumes without interstitial or airspace opacities, pleural effusions or pneumothorax. The cardiomediastinal contours are normal. The trachea is midline. There are no clinically significant osseous abnormalities noted. IMPRESSION: No chest radiographic evidence of acute cardiopulmonary disease. : [id number] 12/18/2017 - - Read by: Guerrero Salmeron DO Dictated Date/time: 12/18/17 18:12 Electronically Signed by: Guerrero Salmeron DO 12/18/17 18:12 FINAL REPORT [address] DX Chest 1view DX Clinical Indication: - employee screening , cardiothoracic icu rn Comparison: 03/21/2017 FINDINGS: Single frontal radiograph of the chest is performed. Heart size is within normal limits. Mediastinal contours are unremarkable. Lungs are clear without infiltrate or mass. No pleural effusion or pneumothorax. No acute osseous abnormality. IMPRESSION: 1. No radiographic evidence for acute process in the chest. : [id number] 10/31/2017 - - Read by: Rogelio Morrow MD Dictated Date/time: 10/31/17 07:15 Electronically Signed by: Rogelio Morrow MD 10/31/17 07:15 FINAL REPORT [facility] Chest 1view DX Chest 1view DX PA chest: The cardiomediastinal silhouette, pulmonary vasculature and eflipe are within normal limits. The lungs and pleural spaces are clear. There are no significant osseous abnormalities. There is no significant change compared to 04/22/2016. IMPRESSION: No acute radiographic abnormalities in the chest. [id number] 03/21/2017 - - Read by: Tesfaye Larson MD Dictated Date/time: 03/21/17 13:59 Electronically Signed by: Tesfaye Larson MD 03/21/17 14:01 FINAL REPORT [facility] 1view DX Chest 1view DX PA chest: The cardiomediastinal silhouette, pulmonary vasculature and felipe are within normal limits. The lungs and pleural spaces are clear. There are no significant osseous abnormalities. There is no significant change compared to 01/17/2010. IMPRESSION: No acute radiographic abnormalities in the chest. [id number] 04/22/2016 - - Read by: Tesfaye Larson MD Dictated Date/time: 04/22/16 16:58 Electronically Signed by: Tesfaye Larson MD 04/22/16 16:59 FINAL REPORT [facility] Vital Signs Vital Sign Value Date Comments Source Weight 95.455 12/22/2017 [facility] Heart Rate 78 12/22/2017 [facility] Respitory Rate 18 12/22/2017 [facility] Temperature Oral (F) 98.7 F 12/22/2017 [facility] BMI Calculated 27.76 12/22/2017 [facility] Height 185.42 cm 12/22/2017 [facility] Systolic (mm Hg) 151 12/22/2017 [facility] Diastolic (mm Hg) 101 12/22/2017 [facility] Heart Rate 95 12/19/2017 [facility] Respitory Rate 18 12/19/2017 [facility] Temperature Oral (F) 98 F 12/19/2017 [facility] Systolic (mm Hg) 139 12/19/2017 [facility] [facility] Diastolic (mm Hg) 97 12/19/2017 [facility] BMI Calculated 27.76 12/18/2017 [facility] Weight 95.455 12/18/2017 [facility] Height 185.42 cm 12/18/2017 [facility] Heart Rate 83 12/18/2017 [facility] Systolic (mm Hg) 139 12/18/2017 [facility] Diastolic (mm Hg) 87 12/18/2017 [facility] Respitory Rate 16 12/18/2017 [facility] Temperature Oral (F) 98.5 F 12/18/2017 [facility] Encounters Location Location Details Encounter Type Encounter Number Reason For Visit Attending Provider ADM Date DC Date Status Source [facility] Patient [id number] Khqing Vermaawala 04/22/2016 07/22/2016 [facility] Patient [id number] Khcynthiaed Banglawala 03/21/2017 06/20/2017 [facility] Outpatient [id number] KHCYNTHIAED BANGLAWASC 03/26/[address] [facility] Primary Care [facility] Phone Message [id number] 10/09/2017 10/11/2017 [facility] Patient [id number] Abelardo Edmondson Jr 10/31/2017 01/30/2018 [facility] Outpatient [id number] DAMIEN MARTIN 11/26/2017 [facility] Primary Care [facility] Ambulatory Pre-Reg [id number] Damien Martin 11/26/2017 11/26/2017 [facility] Emergency [id number] Rosie Dalton 12/18/2017 12/19/2017 [facility] Emergency [id number] Dinesh Cristy 12/22/2017 12/22/2017 [facility] Discharged Inpatient [id number] GIUSEPPE FRANCISCO MD 12/23/2017 12/25/2017 [facility] Departed Emergency Room [id number] DAMARIS ROMAN MD 05/11/2018 05/12/2018 [facility] Departed Emergency Room [id number] SELINA FRANCO MD 09/15/2018 09/15/2018 [facility] Di[facility] Services [id number] Austin Mckeon 09/17/2018 09/18/2018 [facility] Procedures Procedure Code Date Perfomer Comments Source X-ray of chest, two views [id number] 09/15/2018 [facility] Computed tomography of abdomen and pelvis with contrast [id number] 09/15/2018 [facility] Computed tomography of chest with contrast [id number] 05/12/2018 [facility] INSERTION OF INFUSION DEV INTO SUP VENA CAVA, PERC APPROACH [id number] 12/23/2017 [facility] CT extremity upper w contrast [id number] 12/22/2017 [facility] ACL - Repair of anterior cruciate ligament [id number] [facility] Tonsillectomy [id number] [facility] ACL - Repair of anterior cruciate ligament [id number] [facility] Tonsillectomy [id number] [facility] ACL - Repair of anterior cruciate ligament [id number] [facility] Tonsillectomy [id number] [facility] ACL - Repair of anterior cruciate ligament [id number] [facility] Tonsillectomy [id number] [facility]
--- OUTSIDE RECORDS SUMMARY | 2019-01-15 13:03 | XMS REPORT | Summary of Care ---
Author Author [facility] Organization [facility] Address Unknown Phone Unavailable Encounter HQ Megar_ivy(FIN) [id number] Date(s): 10/09/17 - 10/10/17 [facility] [address] [facility], [address] [place], [place] [address]- [phone] Vital Signs No data available for this section Problem List Condition Effective Dates Status Health Status Informant Cough(Confirmed) < 01/19/10 Resolved History of venous Active thrombosis(Confirmed ) Hypertension(Confirm Active ed) Hypertriglyceridemia Active (Confirmed) Pain(Confirmed) 01/22/10 - 01/17/10 Resolved Pneumonia( ) < 01/17/10 Resolved 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
--- OUTSIDE RECORDS SUMMARY | 2019-01-15 13:03 | XMS REPORT | Summary of Care ---
Author Author [facility] Organization [facility] Address Unknown Phone Unavailable Encounter DELMI Fontenot(ED) [id number] Date(s): 12/22/17 - 12/22/17 [facility] [address] [place] [address]- [phone] Discharge Disposition: Left Without Being Seen Attending Physician: Dinesh Muniz MD Vital Signs Most recent to 1 oldest [Reference Range]: Height 185.42 cm (12/22/17 1:48 AM) Temperature Oral 98.7 DegF [96.4-99.1 DegF] (12/22/17 1:48 AM) Blood Pressure 151/101 mmHg [90-140/60-90 mmHg] *HI* (12/22/17 1:48 AM) Respiratory Rate 18 BRMIN [14-20 BRMIN] (12/22/17 1:48 AM) Peripheral Pulse 78 bpm Rate [60-100 bpm] (12/22/17 1:48 AM) Weight 95.455 kg (12/22/17 1:48 AM) Body Mass Index 27.76 m2 (12/22/17 1:48 AM) Problem List Condition Effective Dates Status Health Status Informant Cough(Confirmed) < 01/19/10 Resolved History of venous Active thrombosis(Confirmed ) Hypertension(Confirm Active ed) Hypertriglyceridemia Active (Confirmed) Pain(Confirmed) 01/22/10 - 01/17/10 Resolved Pneumonia( ) < 01/17/10 Resolved 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
--- OUTSIDE RECORDS SUMMARY | 2019-01-15 13:03 | XMS REPORT | Summary of Care ---
Author Author [facility] [place] Organization [facility] [place] Address Unknown Phone Unavailable Encounter HQ Renita_ivy(FIN) [id number] Date(s): 09/17/18 - 09/17/18 [facility] [place] [address] [place] [phone] Discharge Disposition: Home or Self Care Attending Physician: Austin Mckeon MD Referring Physician: Austin Mckeon MD Vital Signs No data available for this section Problem List Condition Effective Dates Status Health Status Informant Cough(Confirmed) < 01/19/10 Resolved History of venous Active thrombosis(Confirmed ) Hypertension(Confirm Active ed) Hypertriglyceridemia Active (Confirmed) Pain(Confirmed) 01/22/10 - 01/17/10 Resolved Pneumonia( ) < 01/17/10 Resolved 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
--- OUTSIDE RECORDS SUMMARY | 2019-01-15 13:03 | XMS REPORT | Summary of Care ---
Author Author [facility] Organization [facility] Address Unknown Phone Unavailable Encounter HQ Po(FIN) [id number] Date(s): 12/18/17 - 12/18/17 [facility] [address] [place] [address]- [phone] Encounter Diagnosis Blunt head injury (Discharge Diagnosis) - 12/18/17 Laceration of elbow, left (Discharge Diagnosis) - 12/18/17 Cervical strain (Discharge Diagnosis) - 12/18/17 On apixaban therapy (Discharge Diagnosis) - 12/18/17 Discharge Disposition: Home or Self Care Attending Physician: Rosie Dalton MD Vital Signs Most recent to 1 2 oldest [Reference Range]: Height 185.42 cm (12/18/17 5:31 PM) Temperature Oral 98 DegF 98.5 DegF [96.4-99.1 DegF] (12/18/17 7:38 PM) (12/18/17 5:31 PM) Blood Pressure 139/97 mmHg 139/87 mmHg [90-140/60-90 mmHg] (12/18/17 7:38 PM) (12/18/17 5:31 PM) Respiratory Rate 18 BRMIN 16 BRMIN [14-20 BRMIN] (12/18/17 7:38 PM) (12/18/17 5:31 PM) Peripheral Pulse 95 bpm 83 bpm Rate [60-100 bpm] (12/18/17 7:38 PM) (12/18/17 5:31 PM) Weight 95.455 kg (12/18/17 5:31 PM) Body Mass Index 27.76 m2 (12/18/17 5:31 PM) Problem List Condition Effective Dates Status Health Status Informant Cough(Confirmed) < 01/19/10 Resolved History of venous Active thrombosis(Confirmed ) Hypertension(Confirm Active ed) Hypertriglyceridemia Active (Confirmed) Pain(Confirmed) 01/22/10 - 01/17/10 Resolved Pneumonia( ) < 01/17/10 Resolved 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) Allergies, Adverse Reactions, Alerts Substance Reaction Severity Status Keflex Active Augmentin Active traMADol Active Medications morphine Sulfate 4 mg, Route: IM, ONCE, Dosing Weight 95.455, kg, Priority: STAT, Start date: 05/28 19:32:00 CDT, Stop date: 12/18/17 19:32:00 CDT Start Date: 12/18/17 Stop Date: 12/18/17 Status: Completed morphine Sulfate 4 mg, Route: IVP, ONCE, Dosing Weight 95.455, kg, Priority: STAT, Start date: 19:40:00 CDT, Stop date: 12/18/17 19:40:00 CDT Start Date: 12/18/17 Stop Date: 12/18/17 Status: Completed [place] 10/325 oral tablet 1 tab, Route: PO, Drug Form: TAB, Dosing Weight 95.455, kg, ONCE, STAT, Start da te: 12/18/17 17:53:00 CDT, Stop date: 12/18/17 17:53:00 CDT Notes: Do not exceed 4gm/day of acetaminophen. (Same as: [place] 325/10) Start Date: 12/18/17 Stop Date: 12/18/17 Status: Completed Saline Flush 0.9% 10 mL, Route: IVP, Drug Form: INJ, Dosing Weight 95.455, kg, PRN, PRN Line Flush , Start date: 12/18/17 17:42:00 CDT, Duration: 30 day, Stop date: 01/17/18 17:41 :00 CDT Notes: (Same as: BD Posiflush) Start Date: 12/18/17 Stop Date: 12/18/17 Status: Discontinued Tylenol with Codeine #3 oral tablet 1 tab, PO, Q6H, PRN Pain, X 4 day, # 17 tab, 0 Refill(s) Start Date: 12/18/17 Stop Date: 12/22/17 Status: Ordered Ultram 50 mg oral tablet 50 mg=1 tab, PO, Q4H, PRN pain, X 3 day, # 20 tab, 0 Refill(s) Start Date: 12/18/17 Stop Date: 12/21/17 Status: Ordered Zofran 4 mg, Route: IVP, Drug form: INJ, ONCE, Dosing Weight 95.455, kg, Priority: STAT , Start date: 12/18/17 19:40:00 CDT, Stop date: 12/18/17 19:40:00 CDT Start Date: 12/18/17 Stop Date: 12/18/17 Status: Completed Zofran ODT 4 mg, Route: PO, Drug form: TABDIS, ONCE, Dosing Weight 95.455, kg, Priority: ST AT, Start date: 12/18/17 19:32:00 CDT, Stop date: 12/18/17 19:32:00 CDT Start Date: 12/18/17 Stop Date: 12/18/17 Status: Completed Results No data available for this section [...]
--- OUTSIDE RECORDS SUMMARY | 2019-01-15 13:03 | XMS REPORT | Summary of Care ---
Author Author [facility] Organization [facility] Address Unknown Phone Unavailable Encounter HQ Megar_ivy(FIN) [id number] Date(s): 03/21/17 - 06/19/17 [facility] [address] [place] [address]- [facility] [phone] Attending Physician: Deangelo Morgan MD Vital Signs No data available for this section Problem List Condition Effective Dates Status Health Status Informant Cough(Confirmed) < 01/19/10 Resolved History of venous Active thrombosis(Confirmed ) Hypertension(Confirm Active ed) Hypertriglyceridemia Active (Confirmed) Pain(Confirmed) 01/22/10 - 01/17/10 Resolved Pneumonia( ) < 01/17/10 Resolved 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
--- OUTSIDE RECORDS SUMMARY | 2019-01-15 13:03 | XMS REPORT | Summary of Care ---
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 (Same as: [place] 325/10) Start Date: 12/18/17 Stop Date: 12/18/17 [...]
--- OUTSIDE RECORDS SUMMARY | 2019-01-15 13:03 | XMS REPORT | Clinical Summary ---
Author Author MARYANNE [facility] Address Unknown Phone Unavailable Care Team Providers Care Document Design Specialist Name Role Phone Ruiz Moore PCP Unavailable [...] Encounters Care Team Description Date Type Specialty Iam Cooley MD Atypical chest pain (Primary Dx); Acute pain of right knee; SOB (shortness of breath); Essential hypertension 10/02/2018 Emergency Emergency Medicine - 10/03/2018 10/02/2018 Orders Only General Internal Medicine 10/02/2018 Travel Jose Herbert MD Strain of right knee, initial encounter (Primary Dx) 08/23/2018 Emergency Emergency Medicine 08/23/2018 Travel after 01/14/2018 Family History Medical History Relation Name Comments [...] Vital Signs Time Taken Vital Sign Reading 10/03/2018 1:00 AM COKE LOADER Blood Pressure 141/78 10/03/2018 1:00 AM COKE LOADER Pulse 71 10/02/2018 9:55 PM COKE LOADER Temperature 34.9 C (94.8 F) 10/03/2018 1:00 AM COKE LOADER Respiratory Rate 17 10/03/2018 1:00 AM COKE LOADER Oxygen Saturation 97% - Inhaled Oxygen - Concentration 10/02/2018 9:55 PM COKE LOADER Weight 95.3 kg (210 lb) 10/02/2018 9:55 PM COKE LOADER Height 185.4 cm (6' 1") 10/02/2018 9:55 PM COKE LOADER Body Mass Index 27.71 Plan of Treatment Not on file Procedures Comments Procedure Name Priority Date/Time Associated Diagnosis RHYTHM STRIP - SCAN 10/06/2018 11:02 AM COKE LOADER REPORT OF PROCEDURE - 10/06/2018 ENDOSCOPY SCAN 11:02 AM COKE LOADER POCT-LACTIC ACID, VENOUS Routine 10/02/2018 10:56 PM COKE LOADER ED ECG INTERPRETATION Routine 10/02/2018 10:37 PM COKE LOADER XR CHEST 1 VIEW STAT 10/02/2018 PORTABLE/BEDSIDE 10:15 PM COKE LOADER D-DIMER STAT 10/02/2018 10:05 PM COKE LOADER PROTHROMBIN TIME/INR STAT 10/02/2018 10:05 PM COKE LOADER CBC W/PLT COUNT & AUTO STAT 10/02/2018 DIFFERENTIAL 10:04 PM COKE LOADER TROPONIN I STAT 10/02/2018 10:04 PM COKE LOADER CBC W/PLT COUNT & AUTO STAT 10/02/2018 DIFFERENTIAL 10:04 PM COKE LOADER BASIC METABOLIC PANEL (7) STAT 10/02/2018 10:04 PM COKE LOADER ECG 12-LEAD STAT 10/02/2018 9:47 PM COKE LOADER XR KNEE RIGHT COMPLETE (4 STAT 08/23/2018 VIEWS) 3:24 PM COKE LOADER after 01/14/2018 Results * RHYTHM STRIP - SCAN (10/06/2018 11:02 AM COKE LOADER) Narrative Performed At * EKG-SCANNED (10/06/2018 11:02 AM COKE LOADER) Narrative Performed At * POC-Lactic Acid, Venous (10/02/2018 10:56 PM COKE LOADER) POC-Lactic Acid, Venous 1.8 (H)Comment: TESTED AT 0.9 - 1.7 mmol/L [facility] [address] [facility] [id number] Specimen Blood Performing Organization Address City/State/Zipcode Phone Number [address] [phone] [facility] * ECG/EKG Interpretation (10/02/2018 10:37 PM COKE LOADER) Narrative Performed At Iam Cooley MD 10/03/20181:25 AM ECG/EKG Interpretation Date/Time: 10/03/2018 12:45 AM Performed by: Iam Cooley MD Authorized by: Iam Cooley MD The ECG was interpreted by ED physician. The ECG is interpreted as sinus rhythm. Heart rate is 73 BPM. Patient tolerance: Patient tolerated the procedure well with no immediate complications Comments: SINUS RHYTHM ON MONITOR * XR chest 1 view portable / bedside (10/02/2018 10:15 PM COKE LOADER) Specimen Narrative Performed At FINAL REPORT Stereotypes TECHNIQUE: Frontal view of the chest. INDICATION: CHEST PAIN. COMPARISON: Chest radiograph from 04/20/2017. FINDINGS: LINES/TUBES: None. LUNGS: Mild linear opacity in the left base. No consolidation or pulmonary edema. PLEURA: No pneumothorax or significant pleural effusion. HEART AND MEDIASTINUM: The cardiomediastinal silhouette is within normal limits. SOFT TISSUES AND BONES: Unremarkable. IMPRESSION: Mild left basilar subsegmental atelectasis/scarring. Otherwise, no acute cardiopulmonary abnormalities. Signed: Taran Emmanuel MD Report Verified Date/Time:10/02/2018 22:44:59 Reading Location: [facility] B1 C013W Consult Reading Room Procedure Note Interface, External Ris In - 10/02/2018 10:47 PM COKE LOADER FINAL REPORT TECHNIQUE: Frontal view of the chest. INDICATION: CHEST PAIN. COMPARISON: Chest radiograph from 04/20/2017. FINDINGS: LINES/TUBES: None. LUNGS: Mild linear opacity in the left base. No consolidation or pulmonary edema. PLEURA: No pneumothorax or significant pleural effusion. HEART AND MEDIASTINUM: The cardiomediastinal silhouette is within normal limits. SOFT TISSUES AND BONES: Unremarkable. IMPRESSION: Mild left basilar subsegmental atelectasis/scarring. Otherwise, no acute cardiopulmonary abnormalities. Signed: Taran Emmanuel MD Report Verified Date/Time: 10/02/2018 22:44:59 Reading Location: [facility] C013W Consult Reading Room Performing Organization Address City/State/Zipcode Phone Number RIS * PT/INR (10/02/2018 10:05 PM COKE LOADER) Protime 12.9 11.7 - 14.7 seconds [facility] INR 1.0 <=5.9 [facility] Specimen Blood Narrative Performed At RECOMMENDED COUMADIN/WARFARIN INR THERAPY RANGES STANDARD DOSE: 2.0 - 3.0 Includes: PROPHYLAXIS for venous thrombosis, [facility] systemic embolization; TREATMENT for venous thrombosis and/or pulmonary embolus. HIGH RISK: Target INR is 2.5-3.5 for patients with mechanical heart valves. Performing Organization Address City/[facility]/Zipcode Phone Number [facility] [address] [place] [address] [facility] * D-dimer, quantitative (10/02/2018 10:05 PM COKE LOADER) D-Dimer, Quant <0.27 <0.50 MG/L FEU [facility] Specimen Blood Narrative Performed At Intended Use: The D-Dimer Assay can be used to aid in the diagnosis of Deep Vein Thrombosis (DVT) and Pulmonary Embolism Disease (PED). [facility] In patients with low pre-test probability, various studies concerning STA Liatest D-dimer test have reported that with a cutoff value of 0.50 MG/L FEU, the Negative Predictive Value (NPV) regarding the exclusion of thrombosis is within 95-100% range. Performing Organization Address City/State/Zipcode Phone Number [facility] [address] [place] [address] [facility] * CBC with platelet count + automated diff (10/02/2018 10:04 PM COKE LOADER) WBC 9.7 3.5 - 10.5 K/L [facility] RBC 4.98 4.63 - 6.08 M/L [facility] Hemoglobin 14.2 13.7 - 17.5 GM/DL [facility] Hematocrit 43.0 40.1 - 51.0 % [facility] MCV 86.3 79.0 - 92.2 fL [facility] MCH 28.5 25.7 - 32.2 pg [facility] MCHC 33.0 32.3 - 36.5 GM/DL [facility] RDW 12.6 11.6 - 14.4 % [facility] Platelets 180 150 - 450 K/CU MM [facility] MPV 9.8 9.4 - 12.4 fL [facility] nRBC 0 0 - 0 /100 WBC [facility] % Neutros 53 % [facility] % Lymphs 39 % [facility] % Monos 7 % [facility] % Eos 1 % [facility] % Baso 0 % [facility] # Neutros 5.09 1.78 - 5.38 K/L [facility] # Lymphs 3.72 (H) 1.32 - 3.57 K/L [facility] # Monos 0.67 0.30 - 0.82 K/L [facility] # Eos 0.11 0.04 - 0.54 K/L [facility] # Baso 0.03 0.01 - 0.08 K/L [facility] Immature 0 0 - 1 % Granulocytes-[facility] Specimen Blood Performing Organization Address City/[facility] [address] [place] [phone] [facility] * Troponin I (10/02/2018 10:04 PM COKE LOADER) Troponin I <0.01 0.00 - 0.03 ng/mL [facility] Specimen Blood Narrative Performed At Troponin I (TnI) levels must be interpreted in the context of the presenting symptoms and the clinical findings. Elevated TnI levels indicate myocardial [facility] damage, but are not specific for ischemic heart disease. Elevated TnI levels are seen in patients with other cardiac conditions (including myocarditis and congestive heart failure), and slight TnI elevations occur in patients with other conditions, including sepsis, renal failure, acidosis, acute neurological disease, and persistent tachyarrhythmia. Performing Organization Address City/State/Zipcode Phone Number [facility] [address] [place] [address] [facility] * Basic Metabolic Panel (10/02/2018 10:04 PM COKE LOADER) Sodium 140 136 - 145 meq/L [facility] Potassium 3.5 3.5 - 5.1 meq/L [facility] Chloride 105 98 - 107 meq/L [facility] CO2 22 22 - 29 meq/L [facility] BUN 14 7 - 21 mg/dL [facility] Creatinine 0.97 0.57 - 1.25 mg/dL [facility] Glucose 119 (H) 70 - 105 mg/dL [facility] Calcium 9.4 8.4 - 10.2 mg/dL [facility] EGFR 88Comment: ESTIMATED GFR IS mL/min/1.73 sq m NOT ACCURATE CREATININE [facility] CLEARANCE IN PREDICTING GLOMERULAR FILTRATION RATE. ESTIMATED GFR IS NOT APPLICABLE FOR DIALYSIS PATIENTS. Specimen Blood Performing Organization Address City/[facility]/Zipcode Phone Number [facility] [address] [place] [address] [facility] * ECG 12 lead (10/02/2018 9:47 PM COKE LOADER) Specimen Narrative Performed At Ventricular Rate 83 BPM GE MUSE Atrial Rate 83 BPM P-R Interval 132 ms QRS Duration 94 ms Q-T Interval 356 ms QTC Calculation(Bazett) 418 ms P [place] 23 degrees R [place] 21 degrees T [place] 35 degrees Normal sinus rhythm Nonspecific T wave abnormality Abnormal ECG When compared with ECG of 17-NOV-2016 23:58, Nonspecific T wave abnormality now evident in Lateral leads Confirmed by MD Rebolledo Roberto ([id number]) on 10/03/2018 9:11:14 AM Procedure Note Interface, External Ris In - 10/03/2018 9:11 AM COKE LOADER Ventricular Rate 83 BPM Atrial Rate 83 BPM P-R Interval 132 ms QRS Duration 94 ms Q-T Interval 356 ms QTC Calculation(Bazett) 418 ms P [place] 23 degrees R [place] 21 degrees T [place] 35 degrees Normal sinus rhythm Nonspecific T wave abnormality Abnormal ECG When compared with ECG of 17-NOV-2016 23:58, Nonspecific T wave abnormality now evident in Lateral leads Confirmed by MD Rebolledo Roberto ([id number]) on 10/03/2018 9:11:14 AM Performing Organization Address City/State/Zipcode Phone Number [employer] * XR knee complete 4 views right (08/23/2018 3:24 PM COKE LOADER) Specimen Narrative Performed At FINAL REPORT GE RIS COMPARISON: None TECHNIQUE: Multipleviews ofthe right knee. FINDINGS: There are no acute fractures or dislocations.No radiopaque foreign bodies. Joint spaces are maintained. No lytic or blastic lesions. Suprapatellar joint effusion suspected. IMPRESSION: No acute bony abnormality. Signed: Mar Weller MD Report Verified Date/Time:08/23/2018 15:28:47 Reading Location: [address] Transitional Reading Room Procedure Note Interface, External Ris In - 08/23/2018 3:31 PM COKE LOADER FINAL REPORT COMPARISON: None TECHNIQUE: Multiple views of the right knee. FINDINGS: There are no acute fractures or dislocations. No radiopaque foreign bodies. Joint spaces are maintained. No lytic or blastic lesions. Suprapatellar joint effusion suspected. IMPRESSION: No acute bony abnormality. Signed: Mar Weller MD Report Verified Date/Time: 08/23/2018 15:28:47 Reading Location: [address] Transitional Reading Room Performing Organization Address City/State/Zipcode Phone Number [facility] JAMES after 01/14/2018 Insurance Payer Benefit Subscriber ID Type Phone Address Plan / Group GENERIC WORKERS' COMP GENERIC xxxx-xxxx WORKERS' COMP Advance Directives For more information, please contact: [facility] [address] [place] [phone] Date Inactivated Comments Code Status Date [...]
[2019-01-15] MEDS ORDERED: SODIUM CHLORIDE 0.9% 50ML 50 ML ONE (13:19)
[2019-01-15] MEDS ORDERED: IOPAMIDOL 370 MG/ML 200 ML INFUS..BTL INJ ONE (13:19)
--- NOTE | 2019-01-15 14:01 | Diagnostic Imaging Report ---
EXAMINATION: CT of the chest with contrast, PE protocol. TECHNIQUE: Spiral CT images of the chest were performed from the lung apices through the level of the adrenal glands after the IV administration of 100 cc of Isovue-370. Thin section reconstructions were obtained with special concentration on the pulmonary arteries. Technique modification was utilized to maintain the lowest dose possible to the patient. DLP: 648.57 mGy-cm COMPARISON: 05/12/2018. CLINICAL HISTORY: Shortness of breath, recent surgery with history of pulmonary emboli. DISCUSSION: Lungs: No filling defects are identified in the main, right or left pulmonary arteries to their segmental and subsegmental levels, to suggest pulmonary embolism. 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 Some linear calcifications within the vessels are noted. No filling defects that would be related to acute new thromboembolic disease. Airways: <The major airways are clear.> Pleura: <There is no evidence of pleural effusion or pneumothorax.> Heart and mediastinum: <The heart and the mediastinum are normal.> Abdomen: <The visualized parts of the upper abdomen are unremarkable.> Bones and soft tissues: <The thoracic skeleton is normal for age. The soft tissues are unremarkable.> IMPRESSION: No evidence of an acute pulmonary emboli. Signed by: Dr. Kavon Muller DO on 01/15/2019 1:58 PM
--- NOTE | 2019-01-15 14:01 | NUR ---
[place] radi[place] x [phone] to for result
--- NOTE | 2019-01-15 14:04 | NUR ---
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
--- NOTE | 2019-01-15 15:07 | Diagnostic Imaging Report ---
Exam: Left knee 3 views History: Pain Comparison: None. Findings: See impression Impression: Postoperative change with fixation screws in the lateral femoral condyle and lateral tibial plateau. Small joint effusion with expected postoperative gas. Signed by: Dr. Tushar Mcguire M.D. on 01/15/2019 3:03 PM
[2019-01-15 15:33] VITALS: BP 153/97
== END 2019-01-15 15:37 | disposition home or self-care (01) ==
LOC: ER 11:31
DX: R06.09 Other forms of dyspnea (principal); Z98.890 Other specified postprocedural states; Z86.718 Personal history of other venous thrombosis and embolism
CPT/HCPCS: 36415; 71260; 73562; 80053; 82550; 82553; 84484; 85025; 85610; 85730; 93005; 93306; 94760; 99284; Q9967

== ENCOUNTER 2019-10-17 19:21 | Emergency (ER) | payer OTHER ==
[~2019-10-17] VITALS: Ht 185.4 cm; Wt 95.3 kg
[2019-10-17] MEDS ORDERED: FAMOTIDINE 20 MG/2 ML VIAL IV STA (19:57)
[2019-10-17] MEDS ORDERED: METOCLOPRAMIDE HCL 10 MG/2ML VIAL IV ONE (20:00)
[2019-10-17] MEDS ORDERED: SODIUM CHLORIDE 0.9% 1000ML 1,000 ML IV SCH (20:00)
[2019-10-17] MEDS ORDERED: SODIUM CHLORIDE 0.9% 1000ML 1,000 ML ONE (20:07)
[2019-10-17] MEDS ORDERED: METOCLOPRAMIDE HCL 10 MG/2ML VIAL ONE (20:07)
[2019-10-17] MEDS ORDERED: FAMOTIDINE 20 MG/2 ML VIAL IV ONE (20:08)
[2019-10-17] MEDS ORDERED: DICYCLOMINE HCL20 MG PO (21:21)
== END 2019-10-17 21:30 | disposition home or self-care (01) ==
LOC: FSED 19:21
DX: R10.9 Unspecified abdominal pain (principal); R11.2 Nausea with vomiting, unspecified; K52.9 Noninfective gastroenteritis and colitis, unspecified; E86.9 Volume depletion, unspecified
CPT/HCPCS: 85025; 99283; J2765; J7030

== ENCOUNTER 2020-03-07 04:54 | Emergency (ER) | payer OTHER ==
[~2020-03-07] VITALS: Ht 185.4 cm; Wt 95.3 kg
[~2020-03-07 04:54] MED LIST changes: +DICYCLOMINE HCL20 MG PO
[2020-03-07] MEDS ORDERED: KETOROLAC TROMETHAMINE 30 MG/ML VIAL IV STA (05:04)
[2020-03-07 05:35] LABS: BASOPHILS % 0.2 % (0.0-1.0); EOSINOPHILS # (AUTO) 0.2 (0.0-0.4); EOSINOPHILS % 2.5 % (0.0-6.0); HEMATOCRIT 46.4 % (38.2-49.6); HEMOGLOBIN 15.5 g/dL (14.0-18.0); LYMPHOCYTES # (AUTO) 3.9 (1.0-3.2); MEAN CORPUSCULAR HEMOGLOBIN 28.4 pg (28-32); MEAN CORPUSCULAR HGB CONC 33.4 g/dL (31-35); MONOCYTES # (AUTO) 0.7 (0.2-0.8); NEUTROPHILS # (AUTO) 4.1 (2.1-6.9); NEUTROPHILS % 45.9 % (38.7-80.0); PLATELET COUNT 192 x10e3/uL (140-360); RED BLOOD COUNT 5.46 x10e6/uL (4.3-5.7); RED CELL DISTRIBUTION WIDTH 12.7 % (11.7-14.4)
--- NOTE | 2020-03-07 05:52 | Emergency Department Note ---
History of Present Illnes History of Present Illness Chief Complaint: Abdominal Complaints History of Present Illness This is a 39 year old male PRESENTS TO THE ER C/O MID RT SIDED ABD PAIN ONSET THIS AM AROUND 0330; PT DENIES FEVER/CHILLS, N/V/D; . Historian: Patient Arrival Mode: Car Onset (how long ago): hour(s) (1) Location: right abd Quality: pain Radiation: Reports non-radiation Severity: moderate Onset quality: sudden Duration (how long): hour(s) (1) Timing of current episode: constant Progression: unchanged Chronicity: new Context: Denies recent illness, Denies recent surgery Relieving factors: none Exacerbating factors: none Associated symptoms: Reports denies other symptoms (DAMARIS ROMAN MD) Past Medical/Family History Physician Review I have reviewed the patient's past medical and family history. Any updates have been documented here. (DAMARIS ROMAN MD) Past Medical History Recent Fever: No Clinical Suspicion of Infectio: No New/Unexplained Change in Ment: No Past Medical History: Hypertension, Hyperlipedemia, DVT/PE Other Medical History: Clotting Disorder Saddle Embolism x 2 (2010, 2014) Pulmonary Embolisms x 16 STAPH INFECTION Past Surgical History: T&A Other Surgery: IVC Filter L ACL Repair x3 R. ACL/PCL (DAMARIS ROMAN MD) Social History Smoking Cessation: Never Smoker Alcohol Use: None TB Exposure/Symptoms: No Physically hurt or threatened: No (DAMARIS ROMAN MD) Family History Family history of heart diseas: No (DAMARIS ROMAN MD) Other Last Tetanus: UNK (DAMARIS ROMAN MD) Review of Systems Review of Systems Constitutional: Reports no symptoms EENTM: Reports no symptoms Cardiovascular: Reports no symptoms Respiratory: Reports no symptoms Gastrointestinal: Reports as per HPI Genitourinary: Reports no symptoms Musculoskeletal: Reports no symptoms Integumentary: Reports no symptoms Neurological: Reports no symptoms Psychological: Reports no symptoms Endocrine: Reports no symptoms Hematological/Lymphatic: Reports no symptoms (DAMARIS ROMAN MD) Physical Exam Related Data Allergies: Coded Allergies: Cephalexin Monohydrate (Verified Allergy, Unknown, 12/22/17) amoxicillin trihydrate (Verified Allergy, Unknown, 12/22/17) oxycodone (Verified Allergy, Unknown, SUICIDAL THOUGHTS, 6/7/19) potassium clavulanate (Verified Allergy, Unknown, 12/22/17) tramadol (Verified Allergy, Unknown, 12/22/17) Triage Vital Signs Vital Signs Date Time Temp Pulse Resp B/P (MAP) Pulse Ox O2 Delivery O2 Flow Rate FiO2 03/07/20 04:59 98.2 67 18 139/104 97 Room Air Vital signs reviewed: Yes (DAMARIS ROMAN MD) Physical Exam CONSTITUTIONAL Constitutional: Present well-developed, Present well-nourished; Absent distressed HENT HENT: Present normocephalic, Present atraumatic, Present oropharynx clear/moist, Present nose normal HENT L/R: Present left ext ear normal, Present right ext ear normal EYES Eyes: Reports PERRL, Reports conjunctivae normal NECK Neck: Present ROM normal PULMONARY Pulmonary: Present effort normal, Present breath sounds normal CARDIOVASCULAR Cardiovascular: Present regular rhythm, Present heart sounds normal, Present capillary refill normal, Present normal rate GASTROINTESTINAL Abdominal: Present soft, Present bowel sounds normal, Present tender (mild ruq tenderness, moderate rlq tenderness); Absent guarding, Absent rebound GENITOURINARY Genitourinary: Present exam deferred SKIN Skin: Present warm, Present dry MUSCULOSKELETAL Musculoskeletal: Present ROM normal NEUROLOGICAL Neurological: Present alert, Present oriented x 3, Present no gross motor or sensory deficits PSYCHOLOGICAL Psychological: Present mood/affect normal, Present judgement normal (DAMARIS ROMAN MD) Results Laboratory Laboratory Laboratory Tests Test 03/07/20 05:06 (DAMARIS ROMAN MD) Laboratory Laboratory Tests Test 03/07/20 05:06 White Blood Count 9.04 x10e3/uL (4.8-10.8) Red Blood Count 5.46 x10e6/uL (4.3-5.7) Hemoglobin 15.5 g/dL (14.0-18.0) Hematocrit 46.4 % (38.2-49.6) Mean Corpuscular Volume 85.0 fL (81-99) Mean Corpuscular Hemoglobin 28.4 pg (28-32) Mean Corpuscular Hemoglobin Concent 33.4 g/dL (31-35) Red Cell Distribution Width 12.7 % (11.7-14.4) Platelet Count 192 x10e3/uL (140-360) Neutrophils (%) (Auto) 45.9 % (38.7-80.0) Lymphocytes (%) (Auto) 43.0 % (18.0-39.1) Monocytes (%) (Auto) 8.0 % (4.4-11.3) Eosinophils (%) (Auto) 2.5 % (0.0-6.0) Basophils (%) (Auto) 0.2 % (0.0-1.0) Neutrophils # (Auto) 4.1 (2.1-6.9) Lymphocytes # (Auto) 3.9 (1.0-3.2) Monocytes # (Auto) 0.7 (0.2-0.8) Eosinophils # (Auto) 0.2 (0.0-0.4) Basophils # (Auto) 0.0 (0.0-0.1) Absolute Immature Granulocyte (auto 0.04 x10e3/uL (0-0.1) Prothrombin Time 11.6 seconds (11.9-14.5) Prothromb Time International Ratio 0.81 Activated Partial Thromboplast Time 27.1 seconds (23.8-35.5) Urine Color Yellow (YELLOW) Urine Clarity Clear (CLEAR) Urine pH 6 (5 - 7) Urine Specific Willis >=1.030 (1.010-1.025) Urine Protein Negative (NEGATIVE) Urine Glucose (UA) Negative (NEGATIVE) Urine Ketones Negative (NEGATIVE) Urine Blood Negative (NEGATIVE) Urine Nitrite Negative (NEGATIVE) Urine Bilirubin Negative (NEGATIVE) Urine Urobilinogen 0.2 mg/dL (0.2 - 1) Urine Leukocyte Esterase Negative (NEGATIVE) Urine RBC 0-5 /HPF (0-5) Urine WBC 0-5 /HPF (0-5) Urine Epithelial Cells Rare /LPF (NONE) Urine Bacteria Rare /HPF (NONE) Sodium Level 138 mmol/L (136-145) Potassium Level 4.2 mmol/L (3.5-5.1) Chloride Level 105 mmol/L (98-107) Carbon Dioxide Level 18 mmol/L (22-29) Anion Gap 19.2 mmol/L (8-16) Blood Urea Nitrogen 19 mg/dL (7-26) Creatinine 0.86 mg/dL (0.72-1.25) Estimat Glomerular Filtration Rate > 60 ML/MIN (60-) BUN/Creatinine Ratio 22 (6-25) Glucose Level 100 mg/dL (74-118) Calcium Level 8.8 mg/dL (8.4-10.2) Total Bilirubin 0.4 mg/dL (0.2-1.2) Aspartate Amino Transf (AST/SGOT) 17 IU/L (5-34) Alanine Aminotransferase (ALT/SGPT) 23 IU/L (0-55) Alkaline Phosphatase 91 IU/L (40-150) Total Protein 7.3 g/dL (6.5-8.1) Albumin 3.7 g/dL (3.5-5.0) Globulin 3.6 g/dL (2.3-3.5) Albumin/Globulin Ratio 1.0 (0.8-2.0) Amylase Level 63 U/L (25-125) Lipase 52 U/L (8-78) Lab results reviewed: Yes (JANELL LACEY MD) Imaging Imaging results reviewed: Yes Impressions Procedure: [id number] CT/CT ABDOMEN/PELVIS W Exam Date: 03/07/20 Exam Time: 07 REPORT STATUS: Signed EXAM: CT Abdomen and Pelvis WITH contrast INDICATION: Right lower quadrant pain COMPARISON: Abdominal CT 09/15/2018. TECHNIQUE: Abdomen and pelvis were scanned utilizing a multidetector helical scanner from the lung base to the pubic symphysis after administration of IV contrast. Coronal and sagittal reformations were obtained. Routine protocol was performed. Scan was performed when during portal venous phase. IV CONTRAST: 100 mL of Isovue 370 ORAL CONTRAST: Gastroview COMPLICATIONS: None RADIATION DOSE: Total DLP: 677 mGy*cm Estimated effective dose: (DLP x 0.015 x size factor) mSv CTDIvol has been reviewed. It is below the limits set by the Radiation Protocol Committee (RPC). Dose modulation, iterative reconstruction, and/or weight based adjustment of the mA/kV was utilized to reduce the radiation dose to as low as reasonably achievable. FINDINGS: LINES and TUBES: None. LOWER THORAX: Unremarkable HEPATOBILIARY: Relatively hypodense compared to the spleen. No focal hepatic lesions. No biliary ductal dilation. GALLBLADDER: No radio-opaque stones or sludge. No wall thickening. SPLEEN: No splenomegaly. PANCREAS: No focal masses or ductal dilatation. ADRENALS: No adrenal nodules KIDNEYS/URETERS: Kidneys enhance symmetrically. No hydronephrosis. No cystic or solid mass lesions. No stones. GI TRACT: No abnormal distention, wall thickening, or evidence of bowel obstruction. Moderate colorectal stool volume Appendix is normal. PELVIC ORGANS/BLADDER: Unremarkable. LYMPH NODES: No lymphadenopathy. VESSELS: Infrarenal IVC filter in place. Otherwise unremarkable. PERITONEUM / RETROPERITONEUM: No free air or fluid. BONES: Unremarkable. SOFT TISSUES: Unremarkable. IMPRESSION: Moderate colorectal stool volume, correlate for constipation. Suspect mild hepatic steatosis. Signed by: Aric Lorenzo DO on 03/07/2020 7:59 AM (JANELL LACEY MD) Assessment & Plan Medical Decision Making MDM pt with right abd pain rlq worse than ruq cbc, cmp, amylase, lipase, ua, ct abd/pelvis ordered to eval for appendicitis, gallstones, hematuria, kidney stone, elevated lft's, electrolyte abnormality [address] lacey labs and ct pending.. (DAMARIS ROMAN MD) Reassessment Reassessment I received report from Dr Roman, pt seen and examined, feels improved, labs and Ct reviewed and d/w patient. DC home, OTC Miralax, Bentyl as directed, F/U PCP, RTED prn (JANELL LACEY MD) Assessment & Plan Final Impression: (1) Abdominal pain (DAMARIS ROMAN MD) Final Impression: (1) Abdominal pain (2) Constipation (JANELL LACEY MD) Depart Disposition: HOME, SELF-CARE Last Vital Signs Date Time Temp Pulse Resp B/P (MAP) Pulse Ox O2 Delivery O2 Flow Rate FiO2 03/07/20 04:59 98.2 67 18 139/104 97 Room Air (DAMARIS ROMAN MD) Home Meds Active Scripts Dicyclomine Hcl (DICYCLOMINE HCL) 20 Mg Tablet, 20 MG PO QID, #20 TAB Prov:ROBIN RODRIGUEZ MD 10/17/19 Reported Medications Acetaminophen With Codeine (TYLENOL WITH CODEINE #3 TABLET) 1 Each Tablet, 300 MG PO Q6H PRN for PAIN, TAB 05/12/18 Cyclobenzaprine Hcl (FLEXERIL) 5 Mg Tablet, 10 MG PO Q8H PRN for PAIN 05/12/18 Clindamycin Hcl (CLINDAMYCIN HCL) 150 Mg Capsule, 600 MG PO TID 12/23/17 Losartan Potassium (LOSARTAN POTASSIUM) 25 Mg Tablet, 50 MG PO DAILY 12/23/17 [Eliquis] No Conflict Check, 5 MG PO BID 12/23/17 Medications in the ED Ketorolac Tromethamine 30 mg ONCE STAT IV ; Start 03/07/20 at 05:04; Stop 03/07/20 at 05:19; Status DC (DAMARIS ROMAN MD) DAMARIS ROMAN MD Mar 07, 2020 05:52 JANELL LACEY MD Mar 07, 2020 08:06
[2020-03-07 05:53] LABS: CLARITY,URINE CLEAR (CLEAR); COLOR,URINE YELLOW (YELLOW)
[2020-03-07 05:54] LABS: BILIRUBIN,URINE NEGATIVE (NEGATIVE); KETONES,URINE NEGATIVE (NEGATIVE); LEUKOCYTE ESTERASE ,URINE NEGATIVE (NEGATIVE); NITRITE,URINE NEGATIVE (NEGATIVE); PROTEIN,URINE DIPSTICK NEGATIVE (NEGATIVE); URINE UROBILINOGEN 0.2 mg/dL (0.2 - 1)
[2020-03-07 06:09] LABS: ALANINE AMINOTRANSFERASE 23 IU/L (0-55); ALBUMIN 3.7 g/dL (3.5-5.0); ALKALINE PHOSPHATASE 91 IU/L (40-150); ANION GAP 19.2 mmol/L (8-16); BLOOD UREA NITROGEN 19 mg/dL (7-26); BUN/CREATININE RATIO 22 (6-25); CALCIUM 8.8 mg/dL (8.4-10.2); CARBON DIOXIDE 18 mmol/L (22-29); CHLORIDE 105 mmol/L (98-107); CREATININE, SERUM 0.86 mg/dL (0.72-1.25); EST GLOMERULAR FILTRATION RATE > 60 ML/MIN (60-); GLUCOSE 100 mg/dL (74-118); POTASSIUM 4.2 mmol/L (3.5-5.1); SODIUM 138 mmol/L (136-145)
[2020-03-07 06:24] LABS: AMYLASE 63 U/L (25-125); LIPASE 52 U/L (8-78)
[2020-03-07 06:45] LABS: BACTERIA,URINE RARE /HPF; EPITHELIAL CELLS,URINE RARE /LPF; RBC,URINE 0-5 /HPF (0-5); WBC,URINE (MAN) 0-5 /HPF (0-5)
[2020-03-07] MEDS ORDERED: DIATRIZOATE MEGL/DIATRIZOA SOD 30 ML BTL PO ONE (06:47)
--- NOTE | 2020-03-07 07:00 | NUR ---
Report to GIFTY Han
[2020-03-07] MEDS ORDERED: SODIUM CHLORIDE 0.9% 50ML 50 ML ONE (07:09)
[2020-03-07] MEDS ORDERED: IOPAMIDOL 370 MG/ML 200 ML INFUS..BTL INJ ONE (07:10)
[2020-03-07 07:16] LABS: INR 0.81; PARTIAL THROMBOPLASTIN TIME 27.1 seconds (23.8-35.5); PROTHROMBIN TIME 11.6 seconds (11.9-14.5)
--- NOTE | 2020-03-07 08:02 | Diagnostic Imaging Report ---
EXAM: CT Abdomen and Pelvis WITH contrast INDICATION: Right lower quadrant pain COMPARISON: Abdominal CT 09/15/2018. TECHNIQUE: Abdomen and pelvis were scanned utilizing a multidetector helical scanner from the lung base to the pubic symphysis after administration of IV contrast. Coronal and sagittal reformations were obtained. Routine protocol was performed. Scan was performed when during portal venous phase. IV CONTRAST: 100 mL of Isovue 370 ORAL CONTRAST: Gastroview COMPLICATIONS: None RADIATION DOSE: Total DLP: 677 mGy*cm Estimated effective dose: (DLP x 0.015 x size factor) mSv CTDIvol has been reviewed. It is below the limits set by the Radiation Protocol Committee (RPC). Dose modulation, iterative reconstruction, and/or weight based adjustment of the mA/kV was utilized to reduce the radiation dose to as low as reasonably achievable. FINDINGS: LINES and TUBES: None. LOWER THORAX: Unremarkable HEPATOBILIARY: Relatively hypodense compared to the spleen. No focal hepatic lesions. No biliary ductal dilation. GALLBLADDER: No radio-opaque stones or sludge. No wall thickening. SPLEEN: No splenomegaly. PANCREAS: No focal masses or ductal dilatation. ADRENALS: No adrenal nodules KIDNEYS/URETERS: Kidneys enhance symmetrically. No hydronephrosis. No cystic or solid mass lesions. No stones. GI TRACT: No abnormal distention, wall thickening, or evidence of bowel obstruction. Moderate colorectal stool volume Appendix is normal. PELVIC ORGANS/BLADDER: Unremarkable. LYMPH NODES: No lymphadenopathy. VESSELS: Infrarenal IVC filter in place. Otherwise unremarkable. PERITONEUM / RETROPERITONEUM: No free air or fluid. BONES: Unremarkable. SOFT TISSUES: Unremarkable. IMPRESSION: Moderate colorectal stool volume, correlate for constipation. Suspect mild hepatic steatosis. Signed by: Aric Lorenzo DO on 03/07/2020 7:59 AM
[2020-03-07 08:18] VITALS: BP 6/1
--- OUTSIDE RECORDS SUMMARY | 2020-03-10 19:07 | XMS REPORT | Clinical Summary ---
Author Author [facility] Address Unknown Phone Unavailable Care Team Providers Care It Technician Name Role Phone Ruiz Moore PCP Unavailable Allergies Comments Active Allergy Reactions Severity Noted Date Amoxicillin-Pot Rash High 05/30/2013 Clavulanate Cephalexin Rash High 05/30/2013 Tramadol Itching Medium 05/22/2014 Medications End Date Status Medication Sig Dispensed Refills Start Date Active apixaban (ELIQUIS) 5 mg Take 5 mg by 0 Tab tablet mouth 2 (two) times daily. Active Problems Problem Noted Date Acute pulmonary embolism 12/22/2016 RUQ pain 12/22/2016 Chest pain 12/19/2014 History of pulmonary embolism 12/19/2014 Pulmonary embolism 12/01/2014 Abdominal pain 06/26/2014 Chest pain, mid sternal 06/29/2013 SOB (shortness of breath) 05/30/2013 Family History Medical History Relation Name Comments [...] travel history available. Last Filed Vital Signs Not on file Plan of Treatment Not on file Results Not on fileafter 03/07/2019 Insurance Payer Benefit Subscriber ID Type Phone Address Plan / Group [employer]IC WORK[employer] GENERIC [id number] WORK[employer] [id number] [address] Workers Self 1980 [address] (Home) [place] [address] Advance Directives For more information, please contact: [address] [address] Date Inactivated Comments Code Status [...]
--- OUTSIDE RECORDS SUMMARY | 2020-03-10 19:08 | XMS REPORT | Continuity of Care Document ---
Author Author [facility] t Organization [facility] Address 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 Name Role Phone NO, PCP PCP Unavailable Jarrod LACEY Attphys Unavailable Maggie LACY Attphys Unavailable Migue GARCIA Attphys Unavailable Maggie Mckeon Attphys Jose G FRANCO Attphys Unavailable Dariel ROMAN Attphys Unavailable Abelardo Edmondson Jr Attphys BOCCARDO, GIUSEPPE Attphys Unavailable Dinesh Muniz Attphys Pennie Dalton Attphys Magaly Jarquin Attphys Deangelo Morgan Attphys ARELI CASTELLANOS Attphys Unavailable MASSUMI, ABOLFATHIAN SAVANNA Attphys Unavailable BOCCARDO, GIUSEPPE Admphys Unavailable MASSUMI, ABOLFATHIAN SAVANNA Admphys Unavailable Payers Payer Name Policy Type Policy Number Effective Date Expiration Date [facility] [id number] 2019 00:00:00 [facility] Workers Comp [id number] [facility] Cigna Ppo [id number] [facility] Blue Cross Exchange [id number] 2015 00:00:00 [facility] Problems Condition Name Condition Details Condition Category Status Onset Date Resolution Date Last Treatment Date Treating Clinician Comments Source S83.511A - SPRAIN OF ANTERIOR CRUCIATE L S83.511A - SPRAIN OF ANTERIOR CRUCIATE L Active 09/01/2018 [facility] Cuervo Diagnosis Active 2018-09-01 00:01:00 2018-10-12 10:45:00 [facility] LEFT ARM PAIN LEFT ARM PAIN Active 12/22/2017 [facility] Active 2017-12-22 00:00:00 2017-12-22 03:41:00 [facility] WOUND INFECTION WOUN D INFECTION Active 12/19/2017 [facility] Diagnosis Active 2017-12-19 00:00:00 2017-12-19 22:42:00 [facility] FALL FALL Active 12/18/2017 [facility] Diagnosis Active 2017-12-18 16:30:00 2017-12-18 20:22:00 [facility] ANNUAL PHYSICAL ZEKE AL PHYSICAL Active 10/31/2017 [facility] Diagnosis Active 2017-10-31 06:46:00 2017-10-31 06:46:00 [facility] Acute pulmonary embolism Acute pulmonary embolism Disease Acti ve 2016-12-22 00:00:00 [facility] RUQ pain RUQ pain Disease Active 2016-12-22 00:00:00 [facility] Pulmonary embolism Pulmonary embolism Problem Active 2015-05-22 00:00:0 0 [facility] Chest pain Chest pain Disease Active 2014-12-19 00:00:00 [facility] History of pulmonary embolism History of pulmonary embolism Disease Active 2014-12-19 00:00:00 [facility] Pulmonary embolism Pulmonary embolism Disease Active 2014-12-01 00:00:0 0 [facility] Abdominal pain Abdominal pain Disease Active 2014-06-26 00:00:00 [facility] Chest pain, mid sternal Chest pain, mid sternal Disease Active 2013-06-29 00:00:00 [facility] SOB (shortness of breath) SOB (shortness of breath) Disease Ac tive 2013-05-30 00:00:00 [facility] Cellulitis of left forearm Cellulitis of left forearm Problem Active [facility] Constipation Problem Active [facility] Sprain of anterior cruciate ligament of right knee, in itial encounter Sprain of anterior cruciate ligament of right knee, initial encounter 04/07/2019 VALERIE [place] Problem 2019-04-07 11:53:24 Mendez Vora Sprain of unspecified collateral ligament of right kne e, initial encounter Sprain of unspecified collateral ligament of right knee, initial encounter 04/07/2019 CECI [place] Problem 2019-04-07 11:53:24 Mendez Vora Other tear of medial meniscus, current injury, right k nee, initial encounter Other tear of medial meniscus, current injury, right knee, initial encounter 04/07/2019 VALERIE [place] Problem 2019-04-07 11:53:24 Mendez Vora History of - thrombosis (context-dependent category) History of - thrombosis (context-dependent category) Active Problem 04/07/2019 [facility], Mamadou, VALERIE [place],[facility] Problem Active 2019-04-07 11:53:24 Luca Vora Hypertensive disorder, systemic arterial (disorder) Hypertensive disorder, systemic arterial (disorder) Active Problem 04/07/2019 [facility], Sipsey, VALERIE [place],[facility] Problem Active 2019-04-07 11:53:24 Luca Vora Hypertriglyceridemia (disorder) Hypertriglyceridemia (disorder) Active Problem 04/07/2019 [facility], [place]ipsey VALERIE [facility],[facility] Problem Active 2019-04-07 11:53:24 [facility] Diony Special examination performed (finding) Special examination performed (finding) Active Problem 04/07/2019 [facility], Mamadou, VALERIE [place],[facility] Problem Active 2019-04-07 11:53:24 [facility] XRAY XRAY Active [facility] Diagnosis Active 2016-04-22 16:43:00 [facility] Encounter for examination and observation following wo rk accident Encounter for examination and observation following work accident 09/23/2018 04/07/2019 CECI [place] Problem 2018-09-23 05: 32:45 2019-04-07 11:53:24 2019-04-07 11:53:24 Mendez elizalde Other specified injuries of head, initial encounter Other specified injuries of head, initial encounter 12/18/2017 12/21/2017 [facility] Problem 2017-12-18 05:00:00 2017-12-21 15:20:58 2017-12 15:20:58 Mendez Vora Laceration without foreign body of left elbow, initial encounter Laceration without foreign body of left elbow, initial encounter 12/18/2017 12/21/2017 CECI Tolent[place] Problem 2017-12-18 05:00:00 2017 15:20:58 2017-12-21 15:20:58 Mendez Vora Strain of muscle, fascia and tendon at neck level, ini tial encounter Strain of muscle, fascia and tendon at neck level, initial encounter 12/18/2017 12/21/2017 CECI Tolentino Problem 2017-12-18 05: 00:00 2017-12-21 15:20:58 2017-12-21 15:20:58 Mendez elizalde halfway (current) use of anticoagulants 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 12/18/2017 12/21/2017 CECI Tolentino Problem 2017-12-18 05:00:00 2017-12-21 15:20:58 2017-12-21 15:20:58 Mendez Vora History of Past Illness Condition Name Condition Details Condition Category Status Onset Date Resolution Date Last Treatment Date Treating Clinician Comments Source Pain (finding) Pain (finding) Resolved 01/22/2010 Problem 04/07/2019 [facility] 2010-01-22 00:00:00 2019-04-07 11:53:24 2019-04-07 11:53:2 4 Mendez Vora Cough (finding) Coug h (finding) Resolved 01/19/2010 Problem 04/07/2019 [facility] 2010-01-19 00:00:00 2019-04-07 11:53:24 2019-04-07 11:53:2 4 Mendez Vora Pneumonia (disorder) Pneu monia (disorder) Resolved 01/17/2010 Problem 04/07/2019 Medical Group,[facility], VALERIE [place], [facility] Problem Resolved 2010-01-17 00:00:00 2019-04-07 11:53:24 2 11:53:24 [facility] Allergies, Adverse Reactions, Alerts Allergy Name Allergy Type Status Severity Reaction(s) Onset Date Inacti ve Date Treating Clinician Comments Source Oxycodone Allergy to substance Active [facility]HTS 2019-01 00:00:00 [facility] amoxicillin trihydrate DA Active 2018-10-20 00:00:00 [facility] Cephalexin Monohydrate DA Active 2018-10-20 00:00:00 [facility] potassium clavulanate DA Active 2018-10-20 00:00:00 [facility] tramadol DA Active MA 2018-10-20 00:00:00 [facility] amoxicillin trihydrate Allergy to substance Active 2017 00:00:00 [facility] potassium clavulanate Allergy to substance Active 2017-12-09 4 00:00:00 [facility] Cephalexin Monohydrate Allergy to substance Active 2017 00:00:00 [facility] amoxicillin trihydrate DA Active 2017-12-15 00:00:00 [facility] Cephalexin Monohydrate DA Active 2017-12-15 00:00:00 [facility] potassium clavulanate DA Active 2017-12-15 00:00:00 [facility] tramadol DA Active MA 2017-12-15 00:00:00 [facility] Tramadol Drug Allergy Active Itching 2014-05-22 00:00:00 [facility] Amoxicillin-Pot Clavulanate Drug Allergy Active Rash 2013-05 00:00:00 [facility] Cephalexin Drug Allergy Active Rash 2013-05-30 00:00:00 [facility] Keflex Keflex Active [facility] Augmentin Augmentin Active Sven rial [place] traMADol traMADol Active Jose Luis Madsen Family History Family Member Diagnosis Comments Start Date Stop Date Source Natural father Diabetes [facility] Natural father Hypertension [facility] Natural mother Hypertension [facility] Social History Social Habit Start Date Stop Date Quantity Comments Source Sex Assigned At [facility] Alcohol Comment 2013-06-28 00:00:00 2013-06-28 00:00:00 socially [facility] Smoking Status Start Date Stop Date Source Social History [facility] Medications Ordered Medication Name Filled Medication Name Start Date Stop Da te Current Medication? Ordering Clinician Indication Dosage Frequency Signature (SIG) Comments Components Source Dicyclomine Hcl Dicyclomine Hcl 2019-10-17 21:21:00 Yes 20 Four Times Daily [facility] apixaban (ELIQUIS) 5 mg Tab tablet 2018-08-23 15:27:54 Yes 5mg Q.5D Take 5 mg by mouth 2 (two) times daily. [facility] Acetaminophen 300 MG / Codeine Phosphate 30 MG Oral Tablet [Tylenol with Codeine #3] 2017-12-19 00:53:00 Yes 1 tab, PO, Q6H, PRN Pain, X 4 day, # 17 tab, 0 Refill(s) [facility] 2017-12-19 00:40:00 No 4 mg, Route: IVP, Drug form: INJ, ONCE, Dosing Weight 95.455, kg, Priority: STAT, Start date: 12/18/17 19:40:00 CDT, Stop date: 12/18/17 19:40:00 [facility] 2017-12-19 00:40:00 No 4 mg, Route: IVP, ONCE, Dosing Weight 95.455, kg, Priority: STAT, Start date: 12/18/17 19:40:00 CDT, Stop date: 12/18/17 19:40:00 CDT [facility] ODT 2017-12-19 00:32:00 No 4 mg, Route: PO, Drug form: TABDIS, ONCE, Dosing Weight 95.455, kg, Priority: STAT, Start date: 12/18/17 19:32:00 CDT, Stop date: 12/18/17 19:32:00 CDT [facility] Morphine 2017-12-19 00:32:00 No 4 mg, Route: IM, ONCE, Dosing Weight 95.455, kg, Priority: STAT, Start date: 12/18/17 19:32:00 CDT, Stop date: 12/18/17 19:32:00 CDT [facility] tramadol hydrochloride 50 MG Oral Tablet [Ultram] 2017-12-19 00:31:00 Yes 50 mg = 1 tab, PO, Q4H, PRN pain, X 3 day, # 20 tab, 0 Refill(s) [facility] Acetaminophen 325 MG / Hydrocodone Bitartrate 10 MG Or al Tablet [[place] 10/325] 2017-12-18 22:53:00 No Note s: Do not exceed 4gm/day of acetaminophen. (Same as: [place] 325/10) [facility] Saline Flush 0.9% 2017-12-18 22:42:00 No Notes: (Same as: BD Posiflush) [facility] Acetaminophen With Codeine (Tylenol With Codeine #3 Ta blet) 1 Each TABLET Acetaminophen With Codeine (Tylenol With Codeine #3 Tablet) 1 Each TABLET 2016-01-30 13:18:00 2016-04-19 00:00:00 No 300 Every 6 Hours as needed for Pain [facility] Cyclobenzaprine Hcl (Flexeril) 5 Mg TABLET Cyclobenzap rine Hcl (Flexeril) 5 Mg TABLET 2016-01-30 13:18:00 2016-04-19 00:00:00 No 5 Thr ee Times A Day [facility] Fondaparinux Sodium (Arixtra) 10 Mg/0.8 Ml DISP.SYRIN Fondaparinux Sodium (Arixtra) 10 Mg/0.8 Ml DISP.SYRIN 2016-01-30 13:18:00 2016-04-19 00:00:00 No 10 Daily [facility] Acetaminophen With Codeine (Tylenol With Codeine #3 Ta blet) 1 Each TABLET Acetaminophen With Codeine (Tylenol With Codeine #3 Tablet) 1 Each TABLET Yes 300 Every 6 Hours as needed for Pain [facility] Clindamycin Hcl Clindamycin Hcl Yes 600 Three Ti mes A Day [facility] Cyclobenzaprine Hcl (Flexeril) 5 Mg TABLET Cyclobenzap rine Hcl (Flexeril) 5 Mg TABLET Yes 10 Every 8 Hours as needed for Phyllis n [facility] Eliquis Eliquis Yes 5 Twice A Day [facility] Losartan Potassium Losartan Potassium Yes 50 Da evie [facility] Enoxaparin Sodium Enoxaparin Sodium 2016-10-16 00:00:00 No 90 Daily [facility] Losartan Potassium Losartan Potassium 2016-10-16 00:00:00 No 50 Bedtime [facility] Enoxaparin Sodium Enoxaparin Sodium 2016-06-22 00:00:00 No 100 Daily [facility] Warfarin Sodium (Coumadin) 5 Mg TABLET Warfarin Sodium (Coumadin ) 5 Mg TABLET 2016-01-30 00:00:00 No 10 Today At 5:00PM [facility] Acetaminophen With Codeine (Tylenol With Codeine #3 Ta blet) 1 Each TABLET Acetaminophen With Codeine (Tylenol With Codeine #3 Tablet) 1 Each TABLET 2016-01-26 00:00:00 No 1 As Needed [facility] Fondaparinux Sodium (Arixtra) 10 Mg/0.8 Ml DISP.SYRIN Fondaparinux Sodium (Arixtra) 10 Mg/0.8 Ml DISP.SYRIN 2016-01-26 00:00:00 No 10 Bedtime [facility] Vital Signs Vital Name Observation Time Observation Value Comments Source Weight 2020-03-07 04:59:00 210 [lb_av] [facility] BMI (Body Mass Index) 2020-03-07 04:59:00 27.7 kg/m2 [facility] Weight 2017-12-22 06:48:00 [facility] Heart Rate 2017-12-22 06:48:00 [facility] Respitory Rate 2017-12-22 06:48:00 Jose Luis Madsen Temperature Oral (F) 2017-12-22 06:48:00 98.7 F [facility] BMI Calculated 2017-12-22 06:48:00 [facility] Height 2017-12-22 06:48:00 185.42 cm [facility] Systolic (mm Hg) 2017-12-22 06:48:00 Sven rial Diony Diastolic (mm Hg) 2017-12-22 06:48:00 Mem orial Diony Heart Rate 2017-12-19 00:38:00 [facility] Respitory Rate 2017-12-19 00:38:00 [facility] [place] Temperature Oral (F) 2017-12-19 00:38:00 98 F [facility] Systolic (mm Hg) 2017-12-19 00:38:00 Sven rial [place] Diastolic (mm Hg) 2017-12-19 00:38:00 Mem orial Diony BMI Calculated 2017-12-18 22:31:00 [facility] Weight 2017-12-18 22:31:00 [facility] Height 2017-12-18 22:31:00 185.42 cm [facility] Heart Rate 2017-12-18 22:31:00 [facility] Systolic (mm Hg) 2017-12-18 22:31:00 Sven rial Sullivan Diastolic (mm Hg) 2017-12-18 22:31:00 Mem orial [facility]y Respitory Rate 2017-12-18 22:31:00 Memori al Diony Temperature Oral (F) 2017-12-18 22:31:00 98.5 F [facility] Procedures Procedure Date / Time Performed Performing Clinician [facility] e Computed tomography of abdomen and pelvis with contrast 00:00:00 [facility] ACL - Repair of anterior cruciate ligament [facility] Tonsillectomy [facility] Plan of Care Planned Activity Planned Date Details Comments Source Instructions Abdominal Pain - Adult [facility] Instructions Constipation - Adult [facility] Encounters Start Date/Time End Date/Time Encounter Type Admission Type [facility] Care Department Encounter ID Source 2020-03-07 05:10:00 2020-03-07 08:30:00 Departed Emergency Room 1 JANELL LACEY [facility] [id number] [facility] 2019-10-17 19:21:00 2019-10-17 21:30:00 Departed Emergency Room [facility] [id number] [facility] 2019-01-15 11:31:00 2019-01-15 15:37:00 Departed Emergency Room 1 JAVI LACY [facility] [id number] [facility] 2018-09-17 12:31:00 2018-09-17 23:59:00 Outpatient Austin Mckeon [facility] M[facility]OIP [id number] 2018-09-17 12:31:00 2018-09-17 23:59:00 Outpatient Austin Mckeon MHHOIP MHHOIP [id number] 2018-09-15 18:36:00 2018-09-15 22:56:00 Departed Emergency Room 1 SELINA FRANCO [facility] [id number] [facility] 2018-05-11 22:43:00 2018-05-12 03:41:00 Departed Emergency Room 1 DAMARIS ROMAN [facility] [id number] [facility] 2017-10-31 06:45:00 2018-01-29 23:59:59 Outpatient Abelardo Edmondson [facility] MH[facility] [id number] 2017-12-23 00:32:00 2017-12-25 14:39:00 Discharged Inpatient 1 GIUSEPPE FRANCISCO [facility] [id number] [facility] 2017-12-22 01:46:00 2017-12-22 02:52:00 Outpatient Maria Luisa Muniz MHSE MHSE [id number] 2017-12-18 17:30:00 2017-12-18 20:01:00 Outpatient Krystle Banks nah Pennie MHSE MHSE [id number] 2017-12-18 17:30:00 2017-12-18 20:01:00 Outpatient Darren Dalton nah Pennie MHSE MHSE [id number] 2017-11-26 13:45:00 2017-11-26 13:45:00 Outpatient Ector JarquinMG MHMG [id number] 2017-10-09 12:41:00 2017-10-10 23:59:59 Outpatient MG [facility] [id number] 2017-03-21 13:41:00 2017-06-19 23:59:[address] [id number] 2017-04-27 18:15:00 2017-04-27 22:05:00 Departed Emergency Room ER JANELL LACEY [facility] [id number] [facility] 2016-04-22 16:40:00 2016-07-21 23:59:59 Outpatient Deangelo Curtis [facility] [id number] Results Test Description Test Time Test Comments Results Result Comments Source CT ABDOMEN/PELVIS W 2020-03-07 07:55:00 [place] [address] Patient Name: ALONA GRIFFITH MR #: [id number] : 1980 Age/Sex: 39/M Req #: [id number] Adm Physician: Ordered by: DAMARIS ROMAN MD Report #: [id number] Location: ER Room/Bed: Procedure: [id number] CT/CT ABDOMEN/PELVIS W Exam Date: 03/07/20 Exam Time: 719 REPORT STATUS: Signed EXAM: CT Abdomen and Pelvis WITH contrast INDICATION: Right lower quadrant pain COMPARISON: Abdominal CT 09/15/2018. TECHNIQUE: Abdomen and pelvis were scanned utilizing a multidetector helical scanner from the lung base to the pubic symphysis after administration of IV contrast. Coronal and sagittal reformations were obtained. Routine protocol was performed. Scan was performed when during portal venous phase. IV CONTRAST: 100 mL of Isovue 370 ORAL CONTRAST: Gastroview COMPLICATIONS: None RADIATION DOSE: Total DLP: 677 mGy*cm Estimated effective dose: (DLP x 0.015 x size factor) mSv CTDIvol has been reviewed. It is below the limits set by the Radiation Protocol Committee (RPC). Dose modulation, iterative reconstruction, and/or weight based adjustment of the mA/kV was utilized to reduce the radiation dose to as low as reasonably achievable. FINDINGS: LINES and TUBES: None. LOWER THORAX: Unremarkable HEPATOBILIARY: Relatively hypodense compared to the spleen. No focal hepatic lesions. No biliary ductal dilation. GALLBLADDER: No radio-opaque stones or sludge. No wall thickening. SPLEEN: No splenomegaly. PANCREAS: No focal masses or ductal dilatation. ADRENALS: No adrenal nodules KIDNEYS/URETERS: Kidneys enhance symmetrically. No hydronephrosis. No cystic or solid mass lesions. No stones. GI TRACT: No abnormal distention, wall thickening, or evidence of bowel obstruction. Moderate colorectal stool volume Appendix is normal. PELVIC ORGANS/BLADDER: Unremarkable. LYMPH NODES: No lymphadenopathy. VESSELS: Infrarenal IVC filter in place. Otherwise unremarkable. PERITONEUM / RETROPERITONEUM: No free air or fluid. BONES: Unremarkable. SOFT TISSUES: Unremarkable. IMPRESSION: Moderate colorectal stool volume, correlate for constipation. Suspect mild hepatic steatosis. Signed by: Aric Mckee DO on 03/07/2020 7:59 AM Dictated By: ARIC MCKEE DO 8 Transcribed By: CLIFF on 03/07/20758 COPY TO: DAMARIS ROMAN MD Blood leukocytes automated count (number/volume) 2020-03-07 05:06:00 Test Item White Blood Count (test code = 6690-2) 9.04 4.8-10.8 [facility] count (number/volume)2020-03-07 05:06:00* Test Item Value Reference Range Interpretation Comments Red Blood Count (test code = 789-8) 5.46 4.3-5.7 [facility] hemoglobin measurement (moles/volume)2020-03-07 05:06:00* Test Item Value Reference Range Interpretation Comments Hemoglobin (test code = 35777-9) 15.5 14.0-18.0 [facility] blood hematocrit (volume fraction)2020-03-07 05:06:00* Test Item Value Reference Range Interpretation Comments Hematocrit (test code = 4544-3) 46.4 38.2-49.6 [facility] erythrocyte mean corpuscular [id number] 05:06:00* Test Item Value Reference Range Interpretation Comments Mean Corpuscular Volume (test code = 787-2) 85.0 81-99 [facility] eryth[facility] mean corpuscular hemoglobin (mass per erythrocyte)2020-03-07 05:06:00* Test Item Value Reference Range Interpretation Comments Mean Corpuscular Hemoglobin (test code = 785-6) 28.4 28-32 [facility] mean corpuscular hemoglobin concentration measurement (mass/volume)2020-03-07 05:06:00* Test Item Value Reference Range Interpretation Comments Mean Corpuscular Hemoglobin Concent (test code = 786-4) 33.4 31-35 [facility]anoRDW [id number] 05:06:00* Test Item Value Reference Range Interpretation Comments Red Cell Distribution Width (test code = 07906-5) 12.7 11.7 -14.4 [facility] blood platelet count (count/volume)2020-03-07 05:06:00* Test Item Value Reference Range Interpretation Comments Platelet Count (test code = 777-3) 192 140-360 [facility] neutrophil count as percentage of total [id number] 05:06:00* Test Item Value Reference Range Interpretation Comments Neutrophils (%) (Auto) (test code = 25339-5) 45.9 38.7-80.0 [facility] blood lymphocyte count as percentage ot total [id number] 05:06:00* Test Item Value Reference Range Interpretation Comments Lymphocytes (%) (Auto) (test code = 736-9) 43.0 18.0-39.1 [facility] blood monocyte count as percentage of total [id number] 05:06:00* Test Item Value Reference Range Interpretation Comments Monocytes (%) (Auto) (test code = 5905-5) 8.0 4.4-11.3 [facility] blood eosinophil count as percentage of total [id number] 05:06:00* Test Item Value Reference Range Interpretation Comments Eosinophils (%) (Auto) (test code = 713-8) 2.5 0.0-6.0 [facility] blood basophil count as percentage of total shfcrojkld4913-24-32 05:06:00* Test Item Value Reference Range Interpretation Comments Basophils (%) (Auto) (test code = 706-2) 0.2 0.0-1.0 [facility]anoFluoroscopic procedure less than one hour [id number] 05:06:00* Test Item Value Reference Range Interpretation Comments IM GRANULOCYTES % (test code = IM GRANULOCYTES %) 0.4 0.0- 1.0 [facility] blood neutrophil count 2020-03-07 05:06:00* Test Item Value Reference Range Interpretation Comments Neutrophils # (Auto) (test code = 751-8) 4.1 2.1-6.9 [facility] lymphocytes count (number/volume) 2020-03-07 05:06:00* Test Item Value Reference Range Interpretation Comments Lymphocytes # (Auto) (test code = 50671-2) 3.9 1.0-3.2 [facility] monocytes automated count (number/volume)2020-03-07 05:06:00* Test Item Value Reference Range Interpretation Comments Monocytes # (Auto) (test code = 742-7) 0.7 0.2-0.8 [facility]anoAutomated blood eosinophil count 2020-03-07 05:06:00* Test Item Value Reference Range Interpretation Comments Eosinophils # (Auto) (test code = 711-2) 0.2 0.0-0.4 [facility]anoAutomated blood basophil count (count/volume)2020-03-07 05:06:00* Test Item Value Reference Range Interpretation Comments Basophils # (Auto) (test code = 704-7) 0.0 0.0-0.1 [facility] PlanoFluoroscopic procedure less than one hour npdqpovc4748-00-11 05:06:00* Test Item Value Reference Range Interpretation Comments Absolute Immature Granulocyte (auto (boris t code = Absolute Immature Granulocyte (auto) 0.04 0-0.1 [facility] PlanoProthrombin time (PT) in platelet poor plasma by coagulation [id number] 05:06:00* Test Item Value Reference Range Interpretation Comments Prothrombin Time (test code = 5902-2) 11.6 11.9-14.5 [facility] PlanoINR in Platelet poor plasma by Coagulation [id number] 05:06:00* Test Item Value Reference Range Interpretation Comments Prothromb Time International Ratio (test code = 6301-6) 0.81 Oral Anticoagulant Therapy INR Values:1. Low Intensity Therapy 1.5 - 2.02 . Moderate Intensity Therapy 2.0 - 3.03. High Intensity Therapy(1) 2.5 - 3. 54. High Intensity Therapy(2) 3.0 - 4.05. Panic Value INR > 5.0 [facility] PlanoActivated partial thromboplastin time (aPTT) in platelet poor plasma by coagulation [id number] 05:06:00* Test Item Value Reference Range Interpretation Comments Activated Partial Thromboplast Time (test code = 59318-5) 27.1 23.8-35.5 [facility] PlanoUrine color zrunvbprdindv5313-84-45 05:06:00* Test Item Value Reference Range Interpretation Comments Urine Color (test code = 5778-6) YELLOW YELLOW [facility] PlanoUrine onjaaej2223-44-19 05:06:00* Test Item Value Reference Range Interpretation Comments Urine Clarity (test code = 95483-3) CLEAR CLEAR [facility] gravity of Urine by Test strip 2020-03-07 05:06:00* Test Item Value Reference Range Interpretation Comments Urine Specific [place] (test code = 5811-5) >=1.030 1.010-1.02 5 [facility] PlanoUrine pH measurement by automated test [id number] 05:06:00* Test Item Value Reference Range Interpretation Comments Urine pH (test code = 94135-7) 6 5-7 [facility] PlanoUrine leukocyte esterase detection by pthimtqp5184-70-93 05:06:00* Test Item Value Reference Range Interpretation Comments Urine Leukocyte Esterase (test code = 5799-2) NEGATIVE NEGATIVE [facility] PlanoUrine nitrite trhqldfsk8021-16-89 05:06:00* Test Item Value Reference Range Interpretation Comments Urine Nitrite (test code = 33297-9) NEGATIVE NEGATIVE [facility]anoUrine protein measurement by test strip (mass/volume)2020-03-07 05:06:00* Test Item Value Reference Range Interpretation Comments Urine Protein (test code = 5804-0) NEGATIVE NEGATIVE [facility] PlanoUrine glucose iefzlynhh7338-84-00 05:06:00* Test Item Value Reference Range Interpretation Comments Urine Glucose (UA) (test code = 2349-9) NEGATIVE NEGATIVE [facility] PlanoUrine ketones detection by automated test [id number] 05:06:00* Test Item Value Reference Range Interpretation Comments Urine Ketones (test code = 25923-8) NEGATIVE NEGATIVE [facility] PlanoUrine urobilinogen measurement by test strip (mass/volume)2020-03-07 05:06:00* Test Item Value Reference Range Interpretation Comments Urine Urobilinogen (test code = 16490-8) 0.2 0.2-1 [facility]anoUrine total bilirubin measurement (mass/volume)2020-03-07 05:06:00* Test Item Value Reference Range Interpretation Comments Urine Bilirubin (test code = 1978-6) NEGATIVE NEGATIVE [facility] PlanoUrine erythrocytes wefpestyb0690-80-35 05:06:00* Test Item Value Reference Range Interpretation Comments Urine Blood (test code = 09514-2) NEGATIVE NEGATIVE [facility] PlanoAutomated urine sediment leukocyte count by microscopy (number/high power field)2020-03-07 05:06:00* Test Item Value Reference Range Interpretation Comments Urine WBC (test code = 5821-4) 0-5 0-5 [facility] PlanoErythrocytes detection in urine sediment by light bacvywmobq3234-96-65 05:06:00* Test Item Value Reference Range Interpretation Comments Urine RBC (test code = 50271-1) 0-5 0-5 [facility] PlanoBacteria detection in urine sediment by light sngrwovmyg8956-24-11 05:06:00* Test Item Value Reference Range Interpretation Comments Urine Bacteria (test code = 18814-8) RARE NONE [facility] PlanoEpithelial cells detection in urine sediment by light zkdmddfczo1648-15-68 05:06:00* Test Item Value Reference Range Interpretation Comments Urine Epithelial Cells (test code = 52701-0) RARE NONE [facility]um or plasma sodium measurement (moles/volume)2020-03-07 05:06:00* Test Item Value Reference Range Interpretation Comments Sodium Level (test code = 2951-2) 138 136-145 [facility] Dallaserum or plasma potassium measurement (moles/volume)2020-03-07 05:06:00* Test Item Value Reference Range Interpretation Comments Potassium Level (test code = 2823-3) 4.2 3.5-5.1 [facility]allaserum or plasma chloride measurement (moles/volume)2020-03-07 05:06:00* Test Item Value Reference Range Interpretation Comments Chloride Level (test code = 2075-0) 105 98-107 [facility]aserum or plasma carbon dioxide, total measurement (moles/volume)2020-03-07 05:06:00* Test Item Value Reference Range Interpretation Comments Carbon Dioxide Level (test code = 2028-9) 18 22-29 [facility]um or plasma anion [id number] 05:06:00* Test Item Value Reference Range Interpretation Comments Anion Gap (test code = 46703-8) 19.2 8-16 [facility] or plasma urea nitrogen measurement (mass/volume)2020-03-07 05:06:00* Test Item Value Reference Range Interpretation Comments Blood Urea Nitrogen (test code = 3094-0) 19 7-26 [facility] or plasma creatinine measurement (mass/volume)2020-03-07 05:06:00* Test Item Value Reference Range Interpretation Comments Creatinine (test code = 2160-0) 0.86 0.72-1.25 [facility] or plasma urea nitrogen/creatinine mass [id number] 05:06:00* Test Item Value Reference Range Interpretation Comments BUN/Creatinine Ratio (test code = 3097-3) 22 6-25 [facility] PlanoEstimated glomerular filtration rate (GFR) epecrgzffuvah6058-78-79 05:06:00* Test Item Value Reference Range Interpretation Comments Estimat Glomerular Filtration Rate (test code = 651309447) > 60 >60 Ranges were taken from the National Kidney Disease Education Program and the [facility] literature.Reference ranges:60 or greater: Qmsffm63-57 ( for 3 consecutive months): Chronic kidney disease 15 or less: Kidney failureBaylor Scott and [facility] the [facility] – PlanoGlucose nplmesnmvkj4109-44-09 05:06:00* Test Item Value Reference Range Interpretation Comments Glucose Level (test code = MOK4490) 100 74-118 [facility] or plasma calcium measurement (mass/volume)2020-03-07 05:06:00* Test Item Value Reference Range Interpretation Comments Calcium Level (test code = 73426-9) 8.8 8.4-10.2 [facility] or plasma total bilirubin measurement (mass/volume)2020-03-07 05:06:00* Test Item Value Reference Range Interpretation Comments Total Bilirubin (test code = 1975-2) 0.4 0.2-1.2 [facility] PlanoFluoroscopic procedure less than one hour fvfqgitw5867-96-12 05:06:00* Test Item Value Reference Range Interpretation Comments Aspartate Amino Transf (AST/SGOT) (test code = Aspartate Amino Transf (AST/SGOT)) 17 5-34 [facility] or plasma alanine aminotransferase measurement (enzymatic activity/volume)2020-03-07 05:06:00* Test Item Value Reference Range Interpretation Comments Alanine Aminotransferase (ALT/SGPT) (test code = 1742-6) 23 0-55 [facility] or plasma protein measurement (mass/volume)2020-03-07 05:06:00* Test Item Value Reference Range Interpretation Comments Total Protein (test code = 2885-2) 7.3 6.5-8.1 [facility] or plasma albumin measurement (mass/volume)2020-03-07 05:06:00* Test Item Value Reference Range Interpretation Comments Albumin (test code = 1751-7) 3.7 3.5-5.0 [facility]anoPlasma globulin measurement (mass/volume) 2020-03-07 05:06:00* Test Item Value Reference Range Interpretation Comments Globulin (test code = 08062-0) 3.6 2.3-3.5 [facility] or plasma albumin/globulin mass [id number] 05:06:00* Test Item Value Reference Range Interpretation Comments Albumin/Globulin Ratio (test code = 1759-0) 1.0 0.8-2.0 [facility] or plasma alkaline phosphatase measurement (enzymatic activity/volume)2020-03-07 05:06:00* Test Item Value Reference Range Interpretation Comments Alkaline Phosphatase (test code = 6768-6) 91 40-150 [facility] or plasma amylase measurement (enzymatic activity/volume)2020-03-07 05:06:00* Test Item Value Reference Range Interpretation Comments Amylase Level (test code = 1798-8) 63 25-125 [facility] or plasma lipase measurement (enzymatic activity/volume)2020-03-07 05:06:00* Test Item Value Reference Range Interpretation Comments Lipase (test code = 3040-3) 52 8-78 [facility] PlanoKNEE RIGHT THREE [id number] 15:02:00 [facility] [address] [place] [address] Patient Name: ALONA GRIFFITH MR #: [id number] : [birth year] Age/Sex: 38/M Req #: [id number] Adm Physician: Ordered by: RADHA OBANDO [employer]DR[employer] OFFICER Report #: [id number] Location: ER Room/Bed: Procedure: DX/KNEE RIGHT THREE VIEWS Exam Date: Exam Time: REPORT STATUS: Signed Exam: Le ft knee 3 views History: Pain Comparison: None. Findings: See im pression Impression: Postoperative change with fixation screws in the lateral femoral condyle and lateral tibial plateau. Small joint effusion with expected postoperative gas. Signed by: Dr. Nayeli Connell M.D. on 01/15 3:03 PM Dictated By: NAYELI CONNELL MD 1503 Transcribed By: CLIFF on 01/15/19 1503 COPY TO: RADHA OBANDO FUNDRAISING OFFICER CT CHEST [id number] 13:28:00 [place] [address] Patient Name: ALONA GRIFFITH MR #: [id number] : 1980 Age/Sex: 38/M Req #: [id number] Adm Physician: Ordered by: JAVI LACY MD Report #: [id number] Location: ER Room/Bed: Procedure: 0607-[address]/CT CHEST W Exam Date: 01/15/19 Exam Time: 1300 REPORT STATUS: Signed EXAMINATIO N: CT of the chest with contrast, PE protocol. TECHNIQUE: Spiral CT images of the chest were performed from the lung apices through the level of the adr enal glands after the IV administration of 100 cc of Isovue-370. Thin section reconstructions were obtained with special concentration on the pulmonary art eries. Technique modification was utilized to maintain the lowest dose poss ible to the patient. DLP: 648.57 mGy-cm COMPARISON: 05/12/2018. CLINICAL HISTORY: Shortness of breath, recent surgery with history of pulmonary emboli. DISCUSSION: Lungs: No filling defects are identified in the main, right or left pulmonary arteries to their segmental and subsegmen lei levels, to suggest pulmonary embolism. Changes related to chronic pulmonar y emboli involving the right lower lobe. Some linear calcifications within the vessels are noted. No filling defects that would be related to acute new thro mboembolic disease. Airways: <The major airways are clear.> Pleura: <There is no evidence of pleural effusion or pneumothorax.> Heart and mediastinum: <The heart and the mediastinum are normal.> Abdomen: <The visualized parts of the upper abdomen are unremarkable.> Bones and soft tissues: <The thoracic skeleton is normal for age. The soft tissues are unremarkable.> IMPRESSION: No evidence of an acute pulmonary emboli. Signed by: Dr. Andrez Guillen DO on 01/15/2019 1:58 PM Dictated By: ANDREZ GUILLEN DO [id number] Transcribed By: CLIFF on 01/15/19 1351 COPY TO: JAVI LACY MD Creatine Kinase [id number] 12:40:00* Test Item Value Reference Range Interpretation Comments Creatine Kinase MB (test code = 55304-8) 6.10 0-5.0 [facility] [id number] 12:40:00* Test Item Value Reference Range Interpretation Comments Troponin I (test code = BEE7041) 0.188 0-0.300 [facility] PlanoCreatine Kinase [id number] 12:40:00* Test Item Value Reference Range Interpretation Comments Creatine Kinase MB (test code = 49724-4) 6.10 0-5.0 [facility] [id number] 12:40:00* Test Item Value Reference Range Interpretation Comments Troponin I (test code = BWE0715) 0.188 0-0.300 [facility] PlanoWhite Blood Hhsfc4305-14-80 12:39:00* Test Item Value Reference Range Interpretation Comments White Blood Count (test code = 6690-2) 12.17 4.8-10.8 H [facility] PlanoRed Blood Apcvf6627-87-31 12:39:00* Test Item Value Reference Range Interpretation Comments Red Blood Count (test code = 789-8) 4.83 4.3-5.7 [facility] PlanoHemoglobin2019-06-07 12:39:00* Test Item Value Reference Range Interpretation Comments Hemoglobin (test code = 47018-6) 13.9 14.0-18.0 L [facility] PlanoHematocrit2019-06-07 12:39:00* Test Item Value Reference Range Interpretation Comments Hematocrit (test code = 4544-3) 41.7 38.2-49.6 [facility] PlanoMean Corpuscular [id number] 12:39:00* Test Item Value Reference Range Interpretation Comments Mean Corpuscular Volume (test code = 787-2) 86.3 81-99 [facility] PlanoMean Corpuscular Xsmhjsahml0733-07-94 12:39:00* Test Item Value Reference Range Interpretation Comments Mean Corpuscular Hemoglobin (test code = 785-6) 28.8 28-32 [facility] PlanoMean Corpuscular Hemoglobin Concent 2019-01-15 12:39:00* Test Item Value Reference Range Interpretation Comments Mean Corpuscular Hemoglobin Concent (test code = 786-4) 33.3 31-35 [facility] PlanoRed Cell Distribution Pgprm5787-19-52 12:39:00* Test Item Value Reference Range Interpretation Comments Red Cell Distribution Width (test code = 06626-4) 13.2 11.7 -14.4 [facility] PlanoPlatelet Nwkcu8126-87-71 12:39:00* Test Item Value Reference Range Interpretation Comments Platelet Count (test code = 777-3) 161 140-360 [facility] PlanoNeutrophils (%) (Auto)2019-01-15 12:39:00 * Test Item Value Reference Range Interpretation Comments Neutrophils (%) (Auto) (test code = 12533-6) 76.4 38.7-80.0 [facility] PlanoLymphocytes (%) (Auto)2019-01-15 12:39:00 * Test Item Value Reference Range Interpretation Comments Lymphocytes (%) (Auto) (test code = 736-9) 9.0 18.0-39.1 L [facility] PlanoMonocytes (%) (Auto)2019-01-15 12:39:00* Test Item Value Reference Range Interpretation Comments Monocytes (%) (Auto) (test code = 5905-5) 13.8 4.4-11.3 H [facility]anoEosinophils (%) (Auto)2019-01-15 12:39:00 * Test Item Value Reference Range Interpretation Comments Eosinophils (%) (Auto) (test code = 713-8) 0.1 0.0-6.0 [facility]anoBasophils (%) (Auto)2019-01-15 12:39:00* Test Item Value Reference Range Interpretation Comments Basophils (%) (Auto) (test code = 706-2) 0.2 0.0-1.0 [facility] PlanoIM GRANULOCYTES %2019-01-15 12:39:00* Test Item Value Reference Range Interpretation Comments IM GRANULOCYTES % (test code = IM GRANULOCYTES %) 0.5 0.0- 1.0 [facility] PlanoNeutrophils # (Auto)2019-01-15 12:39:00* Test Item Value Reference Range Interpretation Comments Neutrophils # (Auto) (test code = 751-8) 9.3 2.1-6.9 H [facility] PlanoLymphocytes # (Auto)2019-01-15 12:39:00* Test Item Value Reference Range Interpretation Comments Lymphocytes # (Auto) (test code = 72840-7) 1.1 1.0-3.2 [facility]anoMonocytes # (Auto)2019-01-15 12:39:00* Test Item Value Reference Range Interpretation Comments Monocytes # (Auto) (test code = 742-7) 1.7 0.2-0.8 H [facility]anoEosinophils # (Auto)2019-01-15 12:39:00* Test Item Value Reference Range Interpretation Comments Eosinophils # (Auto) (test code = 711-2) 0.0 0.0-0.4 [facility]anoBasophils # (Auto)2019-01-15 12:39:00* Test Item Value Reference Range Interpretation Comments Basophils # (Auto) (test code = 704-7) 0.0 0.0-0.1 [facility] PlanoAbsolute Immature Granulocyte (auto 2019-01-15 12:39:00* Test Item Value Reference Range Interpretation Comments Absolute Immature Granulocyte (auto (obris t code = Absolute Immature Granulocyte (auto) 0.06 0-0.1 [facility] PlanoProthrombin [id number] 12:39:00* Test Item Value Reference Range Interpretation Comments Prothrombin Time (test code = 5902-2) 13.5 11.9-14.5 [facility] PlanoProthromb Time International Ratio 2019-01-15 12:39:00* Test Item Value Reference Range Interpretation Comments Prothromb Time International Ratio (test code = 6301-6) 0.98 Oral Anticoagulant Therapy INR Values:1. Low Intensity Therapy 1.5 - 2.02 . Moderate Intensity Therapy 2.0 - 3.03. High Intensity Therapy(1) 2.5 - 3. 54. High Intensity Therapy(2) 3.0 - 4.05. Panic Value INR > 5.0 [facility] PlanoWhite Blood [id number] 12:39:00* Test Item Value Reference Range Interpretation Comments White Blood Count (test code = 6690-2) 12.17 4.8-10.8 H [facility] PlanoRed Blood [id number] 12:39:00* Test Item Value Reference Range Interpretation Comments Red Blood Count (test code = 789-8) 4.83 4.3-5.7 [facility] PlanoHemoglobin2019-06-07 12:39:00* Test Item Value Reference Range Interpretation Comments Hemoglobin (test code = 95932-9) 13.9 14.0-18.0 L [facility] PlanoHematocrit2019-06-07 12:39:00* Test Item Value Reference Range Interpretation Comments Hematocrit (test code = 4544-3) 41.7 38.2-49.6 [facility] PlanoMean Corpuscular Lruark2451-98-29 12:39:00* Test Item Value Reference Range Interpretation Comments Mean Corpuscular Volume (test code = 787-2) 86.3 81-99 [facility] PlanoMean Corpuscular Wvelbguvrn4703-38-35 12:39:00* Test Item Value Reference Range Interpretation Comments Mean Corpuscular Hemoglobin (test code = 785-6) 28.8 28-32 [facility] PlanoMean Corpuscular Hemoglobin Concent 2019-01-15 12:39:00* Test Item Value Reference Range Interpretation Comments Mean Corpuscular Hemoglobin Concent (test code = 786-4) 33.3 31-35 [facility] PlanoRed Cell Distribution [id number] 12:39:00* Test Item Value Reference Range Interpretation Comments Red Cell Distribution Width (test code = 55918-3) 13.2 11.7 -14.4 [facility] PlanoPlatelet Rrrze6595-87-21 12:39:00* Test Item Value Reference Range Interpretation Comments Platelet Count (test code = 777-3) 161 140-360 [facility] PlanoNeutrophils (%) (Auto)2019-01-15 12:39:00 * Test Item Value Reference Range Interpretation Comments Neutrophils (%) (Auto) (test code = 26150-8) 76.4 38.7-80.0 [facility] PlanoLymphocytes (%) (Auto)2019-01-15 12:39:00 * Test Item Value Reference Range Interpretation Comments Lymphocytes (%) (Auto) (test code = 736-9) 9.0 18.0-39.1 L [facility] PlanoMonocytes (%) (Auto)2019-01-15 12:39:00* Test Item Value Reference Range Interpretation Comments Monocytes (%) (Auto) (test code = 5905-5) 13.8 4.4-11.3 H [facility]anoEosinophils (%) (Auto)2019-01-15 12:39:00 * Test Item Value Reference Range Interpretation Comments Eosinophils (%) (Auto) (test code = 713-8) 0.1 0.0-6.0 [facility]anoBasophils (%) (Auto)2019-01-15 12:39:00* Test Item Value Reference Range Interpretation Comments Basophils (%) (Auto) (test code = 706-2) 0.2 0.0-1.0 [facility] PlanoIM GRANULOCYTES %2019-01-15 12:39:00* Test Item Value Reference Range Interpretation Comments IM GRANULOCYTES % (test code = IM GRANULOCYTES %) 0.5 0.0- 1.0 [facility] PlanoNeutrophils # (Auto)2019-01-15 12:39:00* Test Item Value Reference Range Interpretation Comments Neutrophils # (Auto) (test code = 751-8) 9.3 2.1-6.9 H [facility] PlanoLymphocytes # (Auto)2019-01-15 12:39:00* Test Item Value Reference Range Interpretation Comments Lymphocytes # (Auto) (test code = 73225-1) 1.1 1.0-3.2 [facility] PlanoMonocytes # (Auto)2019-01-15 12:39:00* Test Item Value Reference Range Interpretation Comments Monocytes # (Auto) (test code = 742-7) 1.7 0.2-0.8 H [facility]anoEosinophils # (Auto)2019-01-15 12:39:00* Test Item Value Reference Range Interpretation Comments Eosinophils # (Auto) (test code = 711-2) 0.0 0.0-0.4 [facility]anoBasophils # (Auto)2019-01-15 12:39:00* Test Item Value Reference Range Interpretation Comments Basophils # (Auto) (test code = 704-7) 0.0 0.0-0.1 [facility] PlanoAbsolute Immature Granulocyte (auto 2019-01-15 12:39:00* Test Item Value Reference Range Interpretation Comments Absolute Immature Granulocyte (auto (boris t code = Absolute Immature Granulocyte (auto) 0.06 0-0.1 [facility] PlanoProthrombin [id number] 12:39:00* Test Item Value Reference Range Interpretation Comments Prothrombin Time (test code = 5902-2) 13.5 11.9-14.5 [facility] PlanoProthromb Time International Ratio 2019-01-15 12:39:00* Test Item Value Reference Range Interpretation Comments Prothromb Time International Ratio (test code = 6301-6) 0.98 Oral Anticoagulant Therapy INR Values:1. Low Intensity Therapy 1.5 - 2.02 . Moderate Intensity Therapy 2.0 - 3.03. High Intensity Therapy(1) 2.5 - 3. 54. High Intensity Therapy(2) 3.0 - 4.05. Panic Value INR > 5.0 [facility] PlanoActivated Partial Thromboplast Time 2019-01-15 12:32:00* Test Item Value Reference Range Interpretation Comments Activated Partial Thromboplast Time (test code = 53695-0) 36.5 23.8-35.5 H [facility] PlanoActivated Partial Thromboplast Time 2019-01-15 12:32:00* Test Item Value Reference Range Interpretation Comments Activated Partial Thromboplast Time (test code = 42824-5) 36.5 23.8-35.5 [facility] Dallasodium [id number] 12:31:00* Test Item Value Reference Range Interpretation Comments Sodium Level (test code = 2951-2) 135 136-145 L [facility] PlanoPotassium [id number] 12:31:00* Test Item Value Reference Range Interpretation Comments Potassium Level (test code = 2823-3) 3.8 3.5-5.1 [facility]lor[facility] [id number] 12:31:00* Test Item Value Reference Range Interpretation Comments Chloride Level (test code = 2075-0) 104 98-107 [facility]anoCarbon Dioxide [id number] 12:31:00* Test Item Value Reference Range Interpretation Comments Carbon Dioxide Level (test code = 2028-9) 22 22-29 [facility]anoAnion [id number] 12:31:00* Test Item Value Reference Range Interpretation Comments Anion Gap (test code = 47622-9) 12.8 8-16 [facility]anoBlood Urea [id number] 12:31:00* Test Item Value Reference Range Interpretation Comments Blood Urea Nitrogen (test code = 3094-0) 8 7-26 [facility]anoCreatinine2019-06-07 12:31:00* Test Item Value Reference Range Interpretation Comments Creatinine (test code = 2160-0) 0.92 0.72-1.25 [facility]anoBUN/Creatinine [id number] 12:31:00* Test Item Value Reference Range Interpretation Comments BUN/Creatinine Ratio (test code = 3097-3) 9 6-25 [facility]anoEstimat Glomerular Filtration Rate 2019-01-15 12:31:00* Test Item Value Reference Range Interpretation Comments Estimat Glomerular Filtration Rate (test code = 000762400) > 60 >60 Ranges were taken from the National Kidney Disease Education Program and the [facility] Foundation literature.Reference ranges:60 or greater: Huvymz40-03 ( for 3 consecutive months): Chronic kidney disease 15 or less: Kidney failureB[facility] and [facility] the [facility] PlanoGlucose Cvblu6016-54-36 12:31:00* Test Item Value Reference Range Interpretation Comments Glucose Level (test code = EFU3756) 117 74-118 [facility]anoCalcium Wytcn9151-34-92 12:31:00* Test Item Value Reference Range Interpretation Comments Calcium Level (test code = 73544-4) 9.2 8.4-10.2 [facility] PlanoTotal Mlanzpful1245-86-93 12:31:00* Test Item Value Reference Range Interpretation Comments Total Bilirubin (test code = 1975-2) 1.4 0.2-1.2 H [facility] PlanoAspartate Amino Transf (AST/SGOT) 2019-01-15 12:31:00* Test Item Value Reference Range Interpretation Comments Aspartate Amino Transf (AST/SGOT) (test code = Aspartate Amino Transf (AST/SGOT)) 32 5-34 [facility] PlanoAlanine Aminotransferase (ALT/SGPT) 2019-01-15 12:31:00* Test Item Value Reference Range Interpretation Comments Alanine Aminotransferase (ALT/SGPT) (test code = 1742-6) 22 0-55 [facility] PlanoTotal Htuoowm9186-73-86 12:31:00* Test Item Value Reference Range Interpretation Comments Total Protein (test code = 2885-2) 7.0 6.5-8.1 [facility] PlanoAlbumin2019-06-07 12:31:00* Test Item Value Reference Range Interpretation Comments Albumin (test code = 1751-7) 3.9 3.5-5.0 [facility] PlanoGlobulin2019-06-07 12:31:00* Test Item Value Reference Range Interpretation Comments Globulin (test code = 55448-4) 3.1 2.3-3.5 [facility]anoAlbumin/Globulin [id number] 12:31:00 * Test Item Value Reference Range Interpretation Comments Albumin/Globulin Ratio (test code = 1759-0) 1.3 0.8-2.0 [facility] PlanoAlkaline Dfyypjcyzle9218-27-33 12:31:00* Test Item Value Reference Range Interpretation Comments Alkaline Phosphatase (test code = 6768-6) 80 40-150 [facility]anoCreatine Vxyvce9162-79-90 12:31:00* Test Item Value Reference Range Interpretation Comments Creatine Kinase (test code = 2157-6) 877 30-200 [facility]odium Zkwvi6838-05-58 12:31:00* Test Item Value Reference Range Interpretation Comments Sodium Level (test code = 2951-2) 135 136-145 L [facility]anoPotassium Yuowc7991-52-59 12:31:00* Test Item Value Reference Range Interpretation Comments Potassium Level (test code = 2823-3) 3.8 3.5-5.1 [facility]anoChloride Fdndh5446-49-68 12:31:00* Test Item Value Reference Range Interpretation Comments Chloride Level (test code = 2075-0) 104 98-107 [facility]anoCarbon Dioxide Hujhm0824-89-65 12:31:00* Test Item Value Reference Range Interpretation Comments Carbon Dioxide Level (test code = 2028-9) 22 22-29 [facility] PlanoAnion [id number] 12:31:00* Test Item Value Reference Range Interpretation Comments Anion Gap (test code = 79209-4) 12.8 8-16 [facility] PlanoBlood Urea Acbegzeh4441-51-58 12:31:00* Test Item Value Reference Range Interpretation Comments Blood Urea Nitrogen (test code = 3094-0) 8 7-26 [facility] PlanoCreatinine2019-06-07 12:31:00* Test Item Value Reference Range Interpretation Comments Creatinine (test code = 2160-0) 0.92 0.72-1.25 [facility]anoBUN/Creatinine Rxvii3530-94-17 12:31:00* Test Item Value Reference Range Interpretation Comments BUN/Creatinine Ratio (test code = 3097-3) 9 6-25 [facility]anoEstimat Glomerular Filtration Rate 2019-01-15 12:31:00* Test Item Value Reference Range Interpretation Comments Estimat Glomerular Filtration Rate (test code = 565583684) > 60 >60 Ranges were taken from the National Kidney Disease Education Program and the [facility] Foundation literature.Reference ranges:60 or greater: Gktrer22-02 ( for 3 consecutive months): Chronic kidney disease 15 or less: Kidney failureBaylor Scott and [facility] the [facility] PlanoGlucose Zzoon4247-31-28 12:31:00* Test Item Value Reference Range Interpretation Comments Glucose Level (test code = YUG4501) 117 74-118 [facility]anoCalcium Eykpb1869-67-08 12:31:00* Test Item Value Reference Range Interpretation Comments Calcium Level (test code = 05796-3) 9.2 8.4-10.2 [facility] PlanoTotal Heysmcghw5131-70-25 12:31:00* Test Item Value Reference Range Interpretation Comments Total Bilirubin (test code = 1975-2) 1.4 0.2-1.2 H [facility] PlanoAspartate Amino Transf (AST/SGOT) 2019-01-15 12:31:00* Test Item Value Reference Range Interpretation Comments Aspartate Amino Transf (AST/SGOT) (test code = Aspartate Amino Transf (AST/SGOT)) 32 5-34 [facility] PlanoAlanine Aminotransferase (ALT/SGPT) 2019-01-15 12:31:00* Test Item Value Reference Range Interpretation Comments Alanine Aminotransferase (ALT/SGPT) (test code = 1742-6) 22 0-55 [facility] Qggyzwe2090-83-54 12:31:00* Test Item Value Reference Range Interpretation Comments Total Protein (test code = 2885-2) 7.0 6.5-8.1 [facility] PlanoAlbumin2019-06-07 12:31:00* Test Item Value Reference Range Interpretation Comments Albumin (test code = 1751-7) 3.9 3.5-5.0 [facility] PlanoGlobulin2019-06-07 12:31:00* Test Item Value Reference Range Interpretation Comments Globulin (test code = 73466-6) 3.1 2.3-3.5 [facility]anoAlbumin/Globulin Gmcgr2372-66-92 12:31:00 * Test Item Value Reference Range Interpretation Comments Albumin/Globulin Ratio (test code = 1759-0) 1.3 0.8-2.0 [facility] PlanoAlkaline Tigowwqvitz1152-63-29 12:31:00* Test Item Value Reference Range Interpretation Comments Alkaline Phosphatase (test code = 6768-6) 80 40-150 [facility] PlanoCreatine Klzfqf1805-42-19 12:31:00* Test Item Value Reference Range Interpretation Comments Creatine Kinase (test code = 2157-6) 877 30-200 H [facility] PlanoURINALYSIS [id number] 18:45:00* Test Item Value Reference Range Interpretation Comments UA COLOR (test code = COLU) LIGHT YELLOW YELLOW UA APPEARANCE (test code = APPU) CLEAR CLEAR UA GLUCOSE DIPSTICK (test code = DGLUU) NEGATIVE mg/dL NEGATIVE UA BILIRUBIN DIPSTICK (test code = BILU) NEGATIVE mg/dL NEGATIVE UA KETONE DIPSTICK (test code = KETU) 20 (Small) mg/dL NEGATIVE A UA SPECIFIC GRAVITY (test code = SGU) 1.012 1.001-1.035 UA BLOOD DIPSTICK (test code = LEVY) Negative NEGATIVE UA PH DIPSTICK (test code = ROLANDO) 7.0 5.0-8.0 UA PROTEIN DIPSTICK (test code = PROU) Negative mg/dL NEGATIVE UA UROBILINIOGEN DIPSTICK (test code = URO) NEGATIVE mg/dL NEGATIVE UA NITRITE DIPSTICK (test code = MAGDIEL) NEGATIVE NEGATIVE UA LEUKOCYTE ESTERASE W REFLEX (test code = LEUUR) NEGATIVE NEG ATIVE UA WBC (test code = WBCU) NONE SEEN #/HPF 0-5 UA EPITHELIAL CELLS (test code = EPIU) FEW per HPF FEW UA MUCUS (test code = MUCU) FEW #/LPF FEW Urine Source? Clean CatchDRUGS OF ABUSE SCREEN [id number] 18:45:00* Test Item Value Reference Range Interpretation Comments URN COCAINE (test code = COCAURN) NEGATIVE <300 ng/mL URN CANNABINOIDS (test code = CANNABURN) NEGATIVE <50 ng/mL URN AMPHETAMINE (test code = AMPHETURN) NEGATIVE <1000 ng/mL URN BARBITURATE (test code = BARBITURN) NEGATIVE <200 ng/mL URN BENZODIAZEPINE (test code = BENZOURN) NEGATIVE <200 ng/mL URN OPIATES (test code = OPIATURN) NEGATIVE <300 ng/mL URN PHENCYCLIDINE (PCP) (test code = PHENCURN) NEGATIVE <25 ng/ mL URN METHADONE (test code = METHAURN) NEGATIVE <300 ng/mL Urine Source? Clean Catch- XR CHEST 1 [id number] 18:32:00 FAX: Zach Tellez [phone] [place]: St: REG Name: ALONA YANG [facility] : [birth year] Age/S: 37/M [address] [facility] Unit #: [id number] Loc: [place] [address] Phys: Zach Gonzalez Acct: [id number] Dis Date: Status: REG ER PHONE #: [phone] Exam Date: 10/20/20181819 FAX #: [phone] Reason: CHEST PAIN EXAMS: CPT CODE: [id number] XR CHEST 1 V 48320 EXAM: Chest X-ray, 1 view; CLINICAL HISTORY: Chest pain; FINDINGS: The lungs are clear, no infiltrates, no edema; no effusions; no pneumothorax; n ormal cardiomediastinal silhouette. No change compared with a study from [facility] 2017. IMPRESSION: Normal chest x-ray. at 1832 Report ed and signed by: Nilton Burciaga M.D. CC: Jose G Gonzalez MD Technologist: Dusty Cason RT(R Trnscrd Date/Time/By: 10/20/2018 (1831) : By: MariposaGRW Orig Print D/T: S: 10/20/2018 (1834) PAGE 1 Signed Report BASIC METABOLIC [id number] 18:30:00* Test Item Value Reference Range Interpretation Comments SODIUM (test code = NA) 138 mmol/L 136-145 N POTASSIUM (test code = K) 4.0 mmol/L 3.5-5.1 N CHLORIDE (test code = CL) 105.0 mmol/L 98-107 N CARBON DIOXIDE (test code = CO2) 24.0 mmol/L 21-32 N ANION GAP (test code = GAP) 13.0 10-20 N GLUCOSE (test code = GLU) 99 mg/dL 74-106 N BLOOD UREA NITROGEN (test code = BUN) 18 mg/dL 7-18 N GLOMERULAR FILTRATION RATE (test code = GFR) > 60 mL/min >=60 Estimated GFR by using Modified MDRD formula.Chronic kidney disease is defined as either kidney damageor GFR <60 mL/min/1.73 m2 for >3 months. CREATININE (test code = CREAT) 1.00 mg/dL 0.7-1.3 N BUN/CREATININE RATIO (test code = BUN/CREA) 18.0 10-20 N CALCIUM (test code = CA) 9.8 mg/dL 8.5-10.1 N [id number] 18:30:00* Test Item Value Reference Range Interpretation Comments TROPONIN-I (test code = TROPI) <0.015 ng/mL 0-0.045 N URINALYSIS [id number] 18:24:00* Test Item Value Reference Range Interpretation Comments UA COLOR (test code = COLU) LIGHT YELLOW YELLOW UA APPEARANCE (test code = APPU) CLEAR CLEAR UA GLUCOSE DIPSTICK (test code = DGLUU) NEGATIVE mg/dL NEGATIVE UA BILIRUBIN DIPSTICK (test code = BILU) NEGATIVE mg/dL NEGATIVE UA KETONE DIPSTICK (test code = KETU) 20 (Small) mg/dL NEGATIVE A UA SPECIFIC GRAVITY (test code = SGU) 1.012 1.001-1.035 UA BLOOD DIPSTICK (test code = LEVY) Negative NEGATIVE UA PH DIPSTICK (test code = ROLANDO) 7.0 5.0-8.0 UA PROTEIN DIPSTICK (test code = PROU) Negative mg/dL NEGATIVE UA UROBILINIOGEN DIPSTICK (test code = URO) NEGATIVE mg/dL NEGATIVE UA NITRITE DIPSTICK (test code = MAGDIEL) NEGATIVE NEGATIVE UA LEUKOCYTE ESTERASE W REFLEX (test code = LEUUR) NEGATIVE NEG ATIVE UA WBC (test code = WBCU) NONE SEEN #/HPF 0-5 UA EPITHELIAL CELLS (test code = EPIU) FEW per HPF FEW UA MUCUS (test code = MUCU) FEW #/LPF FEW Urine Source? Clean CatchDRUGS OF ABUSE SCREEN [id number] 18:24:00* Test Item Value Reference Range Interpretation Comments URN COCAINE (test code = COCAURN) <300 ng/mL URN CANNABINOIDS (test code = CANNABURN) <50 ng/mL URN AMPHETAMINE (test code = AMPHETURN) <1000 ng/mL URN BARBITURATE (test code = BARBITURN) <200 ng/mL URN BENZODIAZEPINE (test code = BENZOURN) <200 ng/mL URN OPIATES (test code = OPIATURN) <300 ng/mL URN PHENCYCLIDINE (PCP) (test code = PHENCURN) <25 ng/ mL URN METHADONE (test code = METHAURN) <300 ng/mL Urine Source? Clean CatchBASIC METABOLIC [id number] 18:23:00* Test Item Value Reference Range Interpretation Comments SODIUM (test code = NA) 138 mmol/L 136-145 N POTASSIUM (test code = K) 4.0 mmol/L 3.5-5.1 N CHLORIDE (test code = CL) 105.0 mmol/L 98-107 N CARBON DIOXIDE (test code = CO2) mmol/L 21-32 ANION GAP (test code = GAP) 10-20 GLUCOSE (test code = GLU) mg/dL 74-106 BLOOD UREA NITROGEN (test code = BUN) mg/dL 7-18 GLOMERULAR FILTRATION RATE (test code = GFR) mL/min >=60 CREATININE (test code = CREAT) mg/dL 0.7-1.3 BUN/CREATININE RATIO (test code = BUN/CREA) 10-20 CALCIUM (test code = CA) 9.8 mg/dL 8.5-10.1 N [id number] 18:23:00* Test Item Value Reference Range Interpretation Comments TROPONIN-I (test code = TROPI) ng/mL 0-0.045 URINALYSIS [id number] 18:22:00* Test Item Value Reference Range Interpretation Comments UA COLOR (test code = COLU) LIGHT YELLOW YELLOW UA APPEARANCE (test code = APPU) CLEAR CLEAR UA GLUCOSE DIPSTICK (test code = DGLUU) NEGATIVE mg/dL NEGATIVE UA BILIRUBIN DIPSTICK (test code = BILU) NEGATIVE mg/dL NEGATIVE UA KETONE DIPSTICK (test code = KETU) 20 (Small) mg/dL NEGATIVE A UA SPECIFIC GRAVITY (test code = SGU) 1.012 1.001-1.035 UA BLOOD DIPSTICK (test code = LEVY) Negative NEGATIVE UA PH DIPSTICK (test code = ROLANDO) 7.0 5.0-8.0 UA PROTEIN DIPSTICK (test code = PROU) Negative mg/dL NEGATIVE UA UROBILINIOGEN DIPSTICK (test code = URO) NEGATIVE mg/dL NEGATIVE UA NITRITE DIPSTICK (test code = MAGDIEL) NEGATIVE NEGATIVE UA LEUKOCYTE ESTERASE W REFLEX (test code = LEUUR) NEGATIVE NEG ATIVE UA WBC (test code = WBCU) per HPF 0-5 Urine Source? Clean CatchDRUGS OF ABUSE SCREEN [id number] 18:22:00* Test Item Value Reference Range Interpretation Comments URN COCAINE (test code = COCAURN) <300 ng/mL URN CANNABINOIDS (test code = CANNABURN) <50 ng/mL URN AMPHETAMINE (test code = AMPHETURN) <1000 ng/mL URN BARBITURATE (test code = BARBITURN) <200 ng/mL URN BENZODIAZEPINE (test code = BENZOURN) <200 ng/mL URN OPIATES (test code = OPIATURN) <300 ng/mL URN PHENCYCLIDINE (PCP) (test code = PHENCURN) <25 ng/ mL URN METHADONE (test code = METHAURN) <300 ng/mL Urine Source? Clean CatchBASIC METABOLIC [id number] 18:21:00* Test Item Value Reference Range Interpretation Comments SODIUM (test code = NA) 138 mmol/L 136-145 N POTASSIUM (test code = K) 4.0 mmol/L 3.5-5.1 N CHLORIDE (test code = CL) 105.0 mmol/L 98-107 N CARBON DIOXIDE (test code = CO2) mmol/L 21-32 ANION GAP (test code = GAP) 10-20 GLUCOSE (test code = GLU) mg/dL 74-106 BLOOD UREA NITROGEN (test code = BUN) mg/dL 7-18 GLOMERULAR FILTRATION RATE (test code = GFR) mL/min >=60 CREATININE (test code = CREAT) mg/dL 0.7-1.3 BUN/CREATININE RATIO (test code = BUN/CREA) 10-20 CALCIUM (test code = CA) mg/dL 8.5-10.1 [id number] 18:21:00* Test Item Value Reference Range Interpretation Comments TROPONIN-I (test code = TROPI) ng/mL 0-0.045 CBC W/O [id number] 18:12:00* Test Item Value Reference Range Interpretation Comments WHITE BLOOD CELL (test code = WBC) 8.3 K/mm3 4.5-12.5 N RED BLOOD CELL (test code = RBC) 5.70 mill/mm3 4.0-5.8 N HEMOGLOBIN (test code = HGB) 16.2 gram/dL 13.0-17.5 N HEMATOCRIT (test code = HCT) 47.8 % 42.0-52.0 N MEAN CELL VOLUME (test code = MCV) 83.9 fL 80-98 N MEAN CELL HGB (test code = MCH) 28.4 picogram 27.0-33.0 N MEAN CELL HGB CONCETRATION (test code = MCHC) 33.9 gram/dL 33.0-36. 0 N RED CELL DISTRIBUTION WIDTH (test code = RDW) 12.1 % 11.6-16. 2 N PLATELET COUNT (test code = PLT) 272 K/mm3 150-450 N MEAN PLATELET VOLUME (test code = MPV) 9.1 fL 6.7-11.0 N CBC W/O [id number] 18:08:00* Test Item Value Reference Range Interpretation Comments WHITE BLOOD CELL (test code = WBC) K/mm3 4.5-12.5 RED BLOOD CELL (test code = RBC) mill/mm3 4.0-5.8 HEMOGLOBIN (test code = HGB) 16.2 gram/dL 13.0-17.5 N HEMATOCRIT (test code = HCT) 47.8 % 42.0-52.0 N MEAN CELL VOLUME (test code = MCV) fL 80-98 MEAN CELL HGB (test code = MCH) picogram 27.0-33.0 MEAN CELL HGB CONCETRATION (test code = MCHC) gram/dL 33.0-36. 0 RED CELL DISTRIBUTION WIDTH (test code = RDW) % 11.6-16. 2 PLATELET COUNT (test code = PLT) K/mm3 150-450 MEAN PLATELET VOLUME (test code = MPV) fL 6.7-11.0 POCT-LACTIC ACID, [id number] 23:03:00* Test Item Value Reference Range Interpretation Comments POC-LACTIC ACID, VENOUS (EBENEZER) (test code = 2805) 1.8 mmol/L 0. 9-1.7 H TESTED AT [facility] [address] [facility] [address] [id number] 22:56:00* Test Item Value Reference Range Interpretation Comments D-DIMER QUANTITATIVE (EBENEZER) (test code = 671) < MG/L FEU <0.50 Intended Use: The D-Dimer Assay can be used to aid in the diagnosis of Deep Vein Thrombosis (DVT) and Pulmonary Embolism Disease (PED).In patients with low pre- test probability, various studies concerning STA Liatest D-dimer test have repor an that with a cutoff value of 0.50 MG/L FEU, the Negative Predictive Value (FUNDRAISING OFFICER V) regarding the exclusion of thrombosis is within 95-100% range.RAD, CHEST, 1 VIEW, NON [id number] 22:44:00Reason for exam:->CHEST PAINShould this be performed at the bedside?->YesFINAL REPORT TECHNIQUE: Frontal view of the chest. INDICATION: CHEST PAIN. COMPARISON: Chest radiograph from 04/20/2017. FINDINGS: LINES/TUBES: None. LUNGS: Mild linear opacity in the left base. No consolidation or pulmonary edema. PLEURA: No pneumothorax or significant pleural effusion. HEART AND MEDIASTINUM: The cardiomediastinal silhouette is within normal limits. SOFT TISSUES AND BONES: Unremarkable. IMPRESSION:Mild left basilar subsegmental atelectasis/scarring. Otherwise, no acute cardiopulmonary abnormalities. Signed: Zak Emmanuel MDReport Verified Date/Time: 10/02/2018 22:44:59 Reading Location: [address] Consult Reading Room ONIN [id number] 22:40:00* Test Item Value Reference Range Interpretation Comments TROPONIN I (EBENEZER) (test code = 397) < ng/mL 0.00-0.03 Troponin I (TnI) levels must be interpreted in the context of the presenting sym ptoms and the clinical findings. Elevated TnI levels indicate myocardial damage, but are not specific for ischemic heart disease. Elevated TnI levels are seen i n patients with other cardiac conditions (including myocarditis and congestive h eart failure), and slight TnI elevations occur in patients with other conditions , including sepsis, renal failure, acidosis, acute neurological disease, and per sistent tachyarrhythmia.PROTHROMBIN TIME/[id number] 22:38:00* Test Item Value Reference Range Interpretation Comments PROTIME (BEAKER) (test code = 759) 12.9 seconds 11.7-14.7 INR (BEAKER) (test code = 370) 1.0 <=5.9 RECOMMENDED COUMADIN/WARFARIN INR THERAPY RANGESSTANDARD DOSE: 2.0 - 3.0 Inclu gemma: PROPHYLAXIS for venous thrombosis, systemic embolization; TREATMENT for chris ous thrombosis and/or pulmonary embolus.HIGH RISK: Target INR is 2.5-3.5 for pat ients with mechanical heart valves.BASIC METABOLIC [id number] 22:31:00* Test Item Value Reference Range Interpretation Comments SODIUM (BEAKER) (test code = 381) 140 meq/L 136-145 POTASSIUM (BEAKER) (test code = 379) 3.5 meq/L 3.5-5.1 CHLORIDE (BEAKER) (test code = 382) 105 meq/L 98-107 CO2 (BEAKER) (test code = 355) 22 meq/L 22-29 BLOOD UREA NITROGEN (BEAKER) (test code = 354) 14 mg/dL 7-21 CREATININE (BEAKER) (test code = 358) 0.97 mg/dL 0.57-1.25 GLUCOSE RANDOM (BEAKER) (test code = 652) 119 mg/dL 70-105 H CALCIUM (BEAKER) (test code = 697) 9.4 mg/dL 8.4-10.2 EGFR (BEAKER) (test code = 1092) 88 mL/min/1.73 sq m ESTIMATED GFR IS NOT ACCURATE CREATININE CLEARANCE IN PREDICTING GLOMERULAR FILTRATION RATE. ESTIMATED GFR IS NOT APPLICABLE FOR DIALYSIS PATIENTS. CBC W/PLT COUNT & AUTO [id number] 22:19:00* Test Item Value Reference Range Interpretation Comments WHITE BLOOD CELL COUNT (BEAKER) (test code = 775) 9.7 K/ L 3.5- 10.5 RED BLOOD CELL COUNT (BEAKER) (test code = 761) 4.98 M/ L 4.63-6 .08 HEMOGLOBIN (BEAKER) (test code = 410) 14.2 GM/DL 13.7-17.5 HEMATOCRIT (BEAKER) (test code = 411) 43.0 % 40.1-51.0 MEAN CORPUSCULAR VOLUME (BEAKER) (test code = 753) 86.3 fL 79. 0-92.2 MEAN CORPUSCULAR HEMOGLOBIN (BEAKER) (test code = 751) 28.5 pg 25.7-32.2 MEAN CORPUSCULAR HEMOGLOBIN CONC (BEAKER) (test code = 752) 33.0 GM/DL 32.3-36.5 RED CELL DISTRIBUTION WIDTH (BEAKER) (test code = 412) 12.6 % 11.6-14.4 PLATELET COUNT (BEAKER) (test code = 756) 180 K/CU MM 150-450 MEAN PLATELET VOLUME (BEAKER) (test code = 754) 9.8 fL 9.4-12 .4 NUCLEATED RED BLOOD CELLS (BEAKER) (test code = 413) 0 /100 WBC 0 -0 NEUTROPHILS RELATIVE PERCENT (BEAKER) (test code = 429) 53 % LYMPHOCYTES RELATIVE PERCENT (BEAKER) (test code = 430) 39 % MONOCYTES RELATIVE PERCENT (BEAKER) (test code = 431) 7 % EOSINOPHILS RELATIVE PERCENT (BEAKER) (test code = 432) 1 % BASOPHILS RELATIVE PERCENT (BEAKER) (test code = 437) 0 % NEUTROPHILS ABSOLUTE COUNT (BEAKER) (test code = 670) 5.09 K/ L 1.78-5.38 LYMPHOCYTES ABSOLUTE COUNT (BEAKER) (test code = 414) 3.72 K/ L 1.32-3.57 H MONOCYTES ABSOLUTE COUNT (BEAKER) (test code = 415) 0.67 K/ L 0. 30-0.82 EOSINOPHILS ABSOLUTE COUNT (BEAKER) (test code = 416) 0.11 K/ L 0.04-0.54 BASOPHILS ABSOLUTE COUNT (BEAKER) (test code = 417) 0.03 K/ L 0. 01-0.08 IMMATURE GRANULOCYTES-RELATIVE PERCENT (BEAKER) (test code = 2801) 0 % 0-1 CT ABDOMEN/PELVIS [id number] 21:37:00 [facility] [address] [address] Patient Name: ALONA GRIFFITH MR #: [id number] : 1980 Age/Sex: 37/M Req #: [id number] Adm Physician: Ordered by: SELINA FRANCO MD Report #: [id number] Location: ER Room/Bed: Procedure: [id number]/CT ABDOMEN/PELVIS W Exam Date: 09/15/18 Exam Ti me: [id number] REPORT STATUS: Signed E XAM: CT Abdomen and Pelvis WITH contrast INDICATION: Pain COMPARIS ON: None. TECHNIQUE: Abdomen and Pelvis was scanned utilizing a multidetec tor helical scanner after administration of IV contrast. Coronal and sagittal reformations were obtained. IV CONTRAST: 100 mL Isovue-370 COMPLICATIONS: None RADIATION DOSE: Total DLP:525 mGy*cm Estimated effective dose: (DLP x 0.015 x size factor) mSv C TDIvol has been reviewed. It is below the limits set by the Radiation Protocol Committee (RPC). Appropriate CT dose reduction techniques were utilized. FINDINGS: Abdomen: Lung Bases: Atelectasis lung bases. Rubi id Organs: Questionable mild hepatic steatosis. Otherwise, liver, adrenals, ki dneys, spleen, and pancreas unremarkable. Upper GI Tract: No small bowel ob structive changes. Vascularity: No aortic aneurysm. IVC filter present. Lymph Nodes: No suspicious adenopathy. Other: None. Pelvis: Bladder: Unremarkable. Other: None. Colon: Colonic decompression l imits evaluation. No distinct acute colonic findings. Appendix not inflamed. Bones: No acute findings. IMPRESSION: 1. No acute findings. Signed by: Dr. Verito Gay MD on 09/15/2018 9:40 PM Dictated By: VERITO GAY MD 39 Transc ribed By: CLIFF on 09/15/182139 COPY TO: SELINA FRANCO MD B- Type Natriuretic [id number] 20:31:00* Test Item Value Reference Range Interpretation Comments B-Type Natriuretic Peptide (test code = 98299-8) < 10.0 0-100 [facility] Natriuretic Eficgjq1248-66-85 20:31:00* Test Item Value Reference Range Interpretation Comments B-Type Natriuretic Peptide (test code = 15013-6) < 10.0 0-100 [facility] CampusCHEST 2 GVJKC4506-28-27 20:15:00 [facility] [address] [address] Patient Name: ALONA GRIFFITH MR #: [id number] : 1980 Age/Sex: 37/M Req #: [id number] Adm Physician: Ordered by: SELINA FRANCO MD Report #: [id number] Location: ER Room/Bed: Procedure: [id number] DX/CHEST 2 VIEWS Exam Date: 09/15/18 Exam Time: 28 12 REPORT STATUS: Signed EXAMINA TION: CHEST 2 VIEWS INDICATION: Right upper quadrant pain. Rib pa in. chest discomfort [id number] COMPARISON: CT scan May 12, 2018 FINDINGS: TUBES and LINES: None. LUNGS: Lungs are we ll inflated. Lungs are clear. There is no evidence of pneumonia or pulmonar y edema. PLEURA: No pleural effusion or pneumothorax. HEART AND MEDIA STINUM: The cardiomediastinal silhouette is unremarkable. BONES AND SO FT TISSUES: No acute osseous lesion. Soft tissues are unremarkable. UPP ER ABDOMEN: No free air under the diaphragm. IMPRESSION: No acute th oracic abnormality. Signed by: Dr. Emilia Kunz M.D. on 09/15/2018 8:16 PM Dictated By: EMILIA KUNZ MD, MD 15 Transcribed By: CLIFF on 09/15/182015 COPY TO : SELINA FRANCO MD Creatine Kinase [id number] 20:13:00* Test Item Value Reference Range Interpretation Comments Creatine Kinase MB (test code = 54756-2) 0.70 0-5.0 [facility]anoTroponin [id number] 20:13:00* Test Item Value Reference Range Interpretation Comments Troponin I (test code = TOR7303) < 0.001 0-0.300 [facility] Debqb0482-11-72 20:07:00* Test Item Value Reference Range Interpretation Comments Sodium Level (test code = 2951-2) 137 136-145 [facility]anoPotassium Urofi6508-11-70 20:07:00* Test Item Value Reference Range Interpretation Comments Potassium Level (test code = 2823-3) 3.8 3.5-5.1 [facility]anoChloride Fylah8135-50-23 20:07:00* Test Item Value Reference Range Interpretation Comments Chloride Level (test code = 2075-0) 103 98-107 [facility] PlanoCarbon Dioxide Qmixc2374-98-69 20:07:00* Test Item Value Reference Range Interpretation Comments Carbon Dioxide Level (test code = 2028-9) 22 22-29 [facility] PlanoAnion Fwk2406-73-43 20:07:00* Test Item Value Reference Range Interpretation Comments Anion Gap (test code = 50113-3) 15.8 8-16 [facility] PlanoBlood Urea Tiaodiqf8062-02-01 20:07:00* Test Item Value Reference Range Interpretation Comments Blood Urea Nitrogen (test code = 3094-0) 20 7-26 [facility] PlanoCreatinine2019-02-05 20:07:00* Test Item Value Reference Range Interpretation Comments Creatinine (test code = 2160-0) 0.92 0.72-1.25 [facility]anoBUN/Creatinine Uipqq8670-84-69 20:07:00* Test Item Value Reference Range Interpretation Comments BUN/Creatinine Ratio (test code = 3097-3) 22 6-25 [facility] PlanoEstimat Glomerular Filtration Rate 2018-09-15 20:07:00* Test Item Value Reference Range Interpretation Comments Estimat Glomerular Filtration Rate (test code = 630588648) > 60 >60 Ranges were taken from the National Kidney Disease Education Program and the [facility] Foundation literature.Reference ranges:60 or greater: Jywmgx08-63 ( for 3 consecutive months): Chronic kidney disease 15 or less: Kidney failureBaylor Scott and [facility] the [facility] PlanoGlucose Uwowa6795-99-70 20:07:00* Test Item Value Reference Range Interpretation Comments Glucose Level (test code = WKX7665) 108 74-118 [facility] PlanoCalcium Koygi0175-06-01 20:07:00* Test Item Value Reference Range Interpretation Comments Calcium Level (test code = 31973-7) 9.3 8.4-10.2 [facility] PlanoMagnesium Mdqhg2642-11-58 20:07:00* Test Item Value Reference Range Interpretation Comments Magnesium Level (test code = 55129-9) 2.5 1.3-2.1 H [facility] PlanoTotal Rzrihxurz4414-59-44 20:07:00* Test Item Value Reference Range Interpretation Comments Total Bilirubin (test code = 1975-2) 0.5 0.2-1.2 [facility] PlanoAspartate Amino Transf (AST/SGOT) 2018-09-15 20:07:00* Test Item Value Reference Range Interpretation Comments Aspartate Amino Transf (AST/SGOT) (test code = Aspartate Amino Transf (AST/SGOT)) 19 5-34 [facility] PlanoAlanine Aminotransferase (ALT/SGPT) 2018-09-15 20:07:00* Test Item Value Reference Range Interpretation Comments Alanine Aminotransferase (ALT/SGPT) (test code = 1742-6) 22 0-55 [facility] PlanoTotal Vuzpdua2419-33-79 20:07:00* Test Item Value Reference Range Interpretation Comments Total Protein (test code = 2885-2) 7.5 6.5-8.1 [facility] PlanoAlbumin2019-02-05 20:07:00* Test Item Value Reference Range Interpretation Comments Albumin (test code = 1751-7) 4.1 3.5-5.0 [facility] PlanoGlobulin2019-02-05 20:07:00* Test Item Value Reference Range Interpretation Comments Globulin (test code = 57051-0) 3.4 2.3-3.5 [facility] PlanoAlbumin/Globulin Dxbkf8760-63-15 20:07:00 * Test Item Value Reference Range Interpretation Comments Albumin/Globulin Ratio (test code = 1759-0) 1.2 0.8-2.0 [facility] PlanoAlkaline Vwlgxvjpglv4175-25-27 20:07:00* Test Item Value Reference Range Interpretation Comments Alkaline Phosphatase (test code = 6768-6) 89 40-150 [facility] PlanoCreatine Egzrbi2561-93-70 20:07:00* Test Item Value Reference Range Interpretation Comments Creatine Kinase (test code = 2157-6) 77 30-200 [facility] PlanoAmylase Yyhbr9823-31-38 20:07:00* Test Item Value Reference Range Interpretation Comments Amylase Level (test code = 1798-8) 60 25-125 [facility] PlanoLipase2019-02-05 20:07:00* Test Item Value Reference Range Interpretation Comments Lipase (test code = 3040-3) 37 8-78 [facility] PlanoMagnesium Mknzd5254-56-12 20:07:00* Test Item Value Reference Range Interpretation Comments Magnesium Level (test code = 99484-6) 2.5 1.3-2.1 H [facility] PlanoAmylase Csovv1339-43-50 20:07:00* Test Item Value Reference Range Interpretation Comments Amylase Level (test code = 1798-8) 60 25-125 [facility] PlanoLipase2019-02-05 20:07:00* Test Item Value Reference Range Interpretation Comments Lipase (test code = 3040-3) 37 8-78 [facility] PlanoProthrombin Kotr2227-64-13 20:02:00* Test Item Value Reference Range Interpretation Comments Prothrombin Time (test code = 5902-2) 12.3 11.9-14.5 [facility] PlanoProthromb Time International Ratio 2018-09-15 20:02:00* Test Item Value Reference Range Interpretation Comments Prothromb Time International Ratio (test code = 6301-6) 0.84 Oral Anticoagulant Therapy INR Values:1. Low Intensity Therapy 1.5 - 2.02 . Moderate Intensity Therapy 2.0 - 3.03. High Intensity Therapy(1) 2.5 - 3. 54. High Intensity Therapy(2) 3.0 - 4.05. Panic Value INR > 5.0 [facility] PlanoActivated Partial Thromboplast Time 2018-09-15 20:02:00* Test Item Value Reference Range Interpretation Comments Activated Partial Thromboplast Time (test code = 24355-0) 28.4 23.8-35.5 [facility] PlanoWhite Blood Fhcpd0816-97-28 19:53:00* Test Item Value Reference Range Interpretation Comments White Blood Count (test code = 6690-2) 6.31 4.8-10.8 [facility] PlanoRed Blood Pzxxv3560-40-26 19:53:00* Test Item Value Reference Range Interpretation Comments Red Blood Count (test code = 789-8) 5.68 4.3-5.7 [facility] PlanoHemoglobin2019-02-05 19:53:00* Test Item Value Reference Range Interpretation Comments Hemoglobin (test code = 88227-0) 16.3 14.0-18.0 [facility] PlanoHematocrit2019-02-05 19:53:00* Test Item Value Reference Range Interpretation Comments Hematocrit (test code = 4544-3) 47.2 38.2-49.6 [facility] PlanoMean Corpuscular Mwyylk0734-93-88 19:53:00* Test Item Value Reference Range Interpretation Comments Mean Corpuscular Volume (test code = 787-2) 83.1 81-99 [facility] PlanoMean Corpuscular Jpshdgbwrw1082-40-70 19:53:00* Test Item Value Reference Range Interpretation Comments Mean Corpuscular Hemoglobin (test code = 785-6) 28.7 28-32 [facility] PlanoMean Corpuscular Hemoglobin Concent 2018-09-15 19:53:00* Test Item Value Reference Range Interpretation Comments Mean Corpuscular Hemoglobin Concent (test code = 786-4) 34.5 31-35 [facility] PlanoRed Cell Distribution Ziwfm2462-50-46 19:53:00* Test Item Value Reference Range Interpretation Comments Red Cell Distribution Width (test code = 47142-3) 12.4 11.7 -14.4 [facility] PlanoPlatelet Pjdly9314-30-87 19:53:00* Test Item Value Reference Range Interpretation Comments Platelet Count (test code = 777-3) 191 140-360 [facility] PlanoNeutrophils (%) (Auto)2018-09-15 19:53:00 * Test Item Value Reference Range Interpretation Comments Neutrophils (%) (Auto) (test code = 71816-4) 54.0 38.7-80.0 [facility] PlanoLymphocytes (%) (Auto)2018-09-15 19:53:00 * Test Item Value Reference Range Interpretation Comments Lymphocytes (%) (Auto) (test code = 736-9) 35.5 18.0-39.1 [facility] PlanoMonocytes (%) (Auto)2018-09-15 19:53:00* Test Item Value Reference Range Interpretation Comments Monocytes (%) (Auto) (test code = 5905-5) 8.2 4.4-11.3 [facility] PlanoEosinophils (%) (Auto)2018-09-15 19:53:00 * Test Item Value Reference Range Interpretation Comments Eosinophils (%) (Auto) (test code = 713-8) 1.9 0.0-6.0 [facility] PlanoBasophils (%) (Auto)2018-09-15 19:53:00* Test Item Value Reference Range Interpretation Comments Basophils (%) (Auto) (test code = 706-2) 0.2 0.0-1.0 [facility] PlanoIM GRANULOCYTES %2018-09-15 19:53:00* Test Item Value Reference Range Interpretation Comments IM GRANULOCYTES % (test code = IM GRANULOCYTES %) 0.2 0.0- 1.0 [facility] PlanoNeutrophils # (Auto)2018-09-15 19:53:00* Test Item Value Reference Range Interpretation Comments Neutrophils # (Auto) (test code = 751-8) 3.4 2.1-6.9 [facility] PlanoLymphocytes # (Auto)2018-09-15 19:53:00* Test Item Value Reference Range Interpretation Comments Lymphocytes # (Auto) (test code = 05982-0) 2.2 1.0-3.2 [facility] PlanoMonocytes # (Auto)2018-09-15 19:53:00* Test Item Value Reference Range Interpretation Comments Monocytes # (Auto) (test code = 742-7) 0.5 0.2-0.8 [facility] PlanoEosinophils # (Auto)2018-09-15 19:53:00* Test Item Value Reference Range Interpretation Comments Eosinophils # (Auto) (test code = 711-2) 0.1 0.0-0.4 [facility] PlanoBasophils # (Auto)2018-09-15 19:53:00* Test Item Value Reference Range Interpretation Comments Basophils # (Auto) (test code = 704-7) 0.0 0.0-0.1 [facility] PlanoAbsolute Immature Granulocyte (auto 2018-09-15 19:53:00* Test Item Value Reference Range Interpretation Comments Absolute Immature Granulocyte (auto (boris t code = Absolute Immature Granulocyte (auto) 0.01 0-0.1 [facility] PlanoRAD, KNEE, COMPLETE (4 VIEWS), RIGHT 2018-08-23 15:28:00Reason for exam:->traumaFINAL REPORT COMPARISON: None TECHNIQUE: Multiple views of the right knee. FINDINGS: There are no acute fractures or dislocations. No radiopaque foreign bodies. Joint spaces are maintained. No lytic or blastic lesions. Suprapatellar joint effusion suspected. IMPRESSION: No acute bony abnormality. Signed: Stephan Roberts MDReport Verified Date/Time: 08/23/2018 15:28:47 Reading Location: [address] Transitional Reading Room CHEST [id number] 01:31:[address] [address] Patient Name: ALONA GRIFFITH MR #: [id number] : 1980 Age/Sex: 37/M Req #: [id number] Adm Physician: Ordered by: DAMARIS ROAMN MD Report #: [id number] Location: ER Room/Bed: Procedure: [id number] CT/CT CHEST W Exam Da te: 05/12/18 Exam Time: 37 REPORT STATUS: Sig lewis EXAM: CT Chest WITH contrast 05/12/2018 11:02 PM INDICATION: Pulmonary e mbolism COMPARISON: None TECHNIQUE: Chest was scanned utilizing a multide tector helical scanner from the lung apex through the level of the adrenal gla nds without administration of IV contrast. Coronal and sagittal reformations w ere obtained. Pulmonary embolism protocol was performed. IV CONTR AST: 85 mL of Isovue-370 RADIATION DOSE: Total DLP: 610.09 mGy*cm Estimated effective dose: (DLP x 0.014 x size factor) mSv COMPLICATIONS: None FINDINGS: LINES/ TUBES: None. LUNGS AND A IRWAYS: The lungs are unremarkable. Airways are normal. There is evidence of right lower lobe segmental pulmonary embolism which is visualized with bridger ear calcifications within the thrombus suggestive of chronicity (series 2, ana ge 67). Similar findings are noted in the posterior segment of the right upper lobe on series 2, image 40. PLEURA: The pleural spaces are clear. HEA RT AND MEDIASTINUM: The thyroid gland is normal. No mediastinal, hilar or axi llary lymphadenopathy. The heart is normal in size.. There is no pericardial effusion. Aorta and coronary arteries are unremarkable. The pulmonary artery measures 3.2 cm in diameter. UPPER ABDOMEN: Limited non-contrast views of t he upper abdomen show no abnormality within the visualized liver, spleen, panc reas, or kidneys. The adrenal glands are normal. BONES: The visualized boby ny thorax is within normal limits. SOFT TISSUES: Unremarkable. IMPRESS ION: 1. The right upper and right lower lobe findings are compatible with ch ronic pulmonary embolism. 2. No evidence of acute thrombus of the time of interpretation. Signed by: Dr. Stan Espana M.D. on 05/12/2018 1:37 AM Dictated By: STAN BEASLEY MD 6 Transcribed By: CLIFF on 05/12/18136 COPY TO: DAMARIS ROMAN MD Creatine Kinase [id number] 00:24:00 * Test Item Value Reference Range Interpretation Comments Creatine Kinase MB (test code = 66333-1) 1.20 0-5.0 [facility] PlanoTroponin [id number] 00:24:00* Test Item Value Reference Range Interpretation Comments Troponin I (test code = NBT5362) -0.001 0-0.300 [facility] Dallasodium Wpbou0352-87-11 00:15:00* Test Item Value Reference Range Interpretation Comments Sodium Level (test code = 2951-2) 140 136-145 [facility] PlanoPotassium Jcjxp4420-85-64 00:15:00* Test Item Value Reference Range Interpretation Comments Potassium Level (test code = 2823-3) 4.0 3.5-5.1 [facility] PlanoChloride Cfzjb1040-40-88 00:15:00* Test Item Value Reference Range Interpretation Comments Chloride Level (test code = 2075-0) 104 98-107 [facility] PlanoCarbon Dioxide Rchcn4171-75-01 00:15:00* Test Item Value Reference Range Interpretation Comments Carbon Dioxide Level (test code = 2028-9) 23 22-29 [facility] PlanoAnion Yry0345-15-81 00:15:00* Test Item Value Reference Range Interpretation Comments Anion Gap (test code = 95620-9) 17.0 8-16 H [facility] PlanoBlood Urea Cbtyvmms1152-50-38 00:15:00* Test Item Value Reference Range Interpretation Comments Blood Urea Nitrogen (test code = 3094-0) 17 7-26 [facility] PlanoCreatinine2018-10-02 00:15:00* Test Item Value Reference Range Interpretation Comments Creatinine (test code = 2160-0) 0.98 0.72-1.25 [facility] PlanoBUN/Creatinine Rjtpe1151-58-05 00:15:00* Test Item Value Reference Range Interpretation Comments BUN/Creatinine Ratio (test code = 3097-3) 17 6- [facility] PlanoEstimat Glomerular Filtration Rate 2018-05-12 00:15:00* Test Item Value Reference Range Interpretation Comments Estimat Glomerular Filtration Rate (test code = 046150693) 60- >60 Ranges were taken from the National Kidney Disease Education Program and the [facility] Kid[facility] Foundation literature.Reference ranges:60 or greater: Dfdrrz85-88 ( for 3 consecutive months): Chronic kidney disease 15 or less: Kidney failureBaylor Scott and White the [facility] Hospital – PlanoGlucose Xktax8814-76-52 00:15:00* Test Item Value Reference Range Interpretation Comments Glucose Level (test code = XLE2357) 124 74-118 H [facility] PlanoCalcium Kwmcy7259-37-76 00:15:00* Test Item Value Reference Range Interpretation Comments Calcium Level (test code = 38955-9) 9.0 8.4-10.2 [facility] PlanoTotal Sutrvsovt2372-14-10 00:15:00* Test Item Value Reference Range Interpretation Comments Total Bilirubin (test code = 1975-2) 0.6 0.2-1.2 [facility] PlanoAspartate Amino Transf (AST/SGOT) 2018-05-12 00:15:00* Test Item Value Reference Range Interpretation Comments Aspartate Amino Transf (AST/SGOT) (test code = Aspartate Amino Transf (AST/SGOT)) 21 5-34 [facility] PlanoAlanine Aminotransferase (ALT/SGPT) 2018-05-12 00:15:00* Test Item Value Reference Range Interpretation Comments Alanine Aminotransferase (ALT/SGPT) (test code = 1742-6) 19 0-55 [facility] PlanoTotal Kaukliz6145-19-99 00:15:00* Test Item Value Reference Range Interpretation Comments Total Protein (test code = 2885-2) 8.3 6.5-8.1 H [facility] PlanoAlbumin2018-10-02 00:15:00* Test Item Value Reference Range Interpretation Comments Albumin (test code = 1751-7) 4.4 3.5-5.0 [facility] PlanoGlobulin2018-10-02 00:15:00* Test Item Value Reference Range Interpretation Comments Globulin (test code = 84024-8) 3.9 2.3-3.5 H [facility] PlanoAlbumin/Globulin Qfbpz5777-25-54 00:15:00 * Test Item Value Reference Range Interpretation Comments Albumin/Globulin Ratio (test code = 1759-0) 1.1 0.8-2.0 [facility] PlanoAlkaline Uoylemcklsh4791-55-56 00:15:00* Test Item Value Reference Range Interpretation Comments Alkaline Phosphatase (test code = 6768-6) 86 40-150 [facility] PlanoCreatine Zvavfi7621-67-11 00:15:00* Test Item Value Reference Range Interpretation Comments Creatine Kinase (test code = 2157-6) 128 30-200 [facility] PlanoProthrombin Tqyx4448-81-58 23:54:00* Test Item Value Reference Range Interpretation Comments Prothrombin Time (test code = 5902-2) 12.3 11.9-14.5 [facility] PlanoProthromb Time International Ratio 2018-05-11 23:54:00* Test Item Value Reference Range Interpretation Comments Prothromb Time International Ratio (test code = 6301-6) 0.84 Oral Anticoagulant Therapy INR Values:1. Low Intensity Therapy 1.5 - 2.02 . Moderate Intensity Therapy 2.0 - 3.03. High Intensity Therapy(1) 2.5 - 3. 54. High Intensity Therapy(2) 3.0 - 4.05. Panic Value INR > 5.0 [facility] PlanoActivated Partial Thromboplast Time 2018-05-11 23:54:00* Test Item Value Reference Range Interpretation Comments Activated Partial Thromboplast Time (test code = 93669-9) 27.5 23.8-35.5 [facility] PlanoWhite Blood Mgxux8217-07-73 23:41:00* Test Item Value Reference Range Interpretation Comments White Blood Count (test code = 6690-2) 6.69 4.8-10.8 [facility] PlanoRed Blood Stdjn1774-68-74 23:41:00* Test Item Value Reference Range Interpretation Comments Red Blood Count (test code = 789-8) 5.19 4.3-5.7 [facility] PlanoHemoglobin2018-10-01 23:41:00* Test Item Value Reference Range Interpretation Comments Hemoglobin (test code = 34027-5) 15.4 14.0-18.0 [facility] PlanoHematocrit2018-10-01 23:41:00* Test Item Value Reference Range Interpretation Comments Hematocrit (test code = 4544-3) 44.1 38.2-49.6 [facility] PlanoMean Corpuscular Ppltcq7127-15-29 23:41:00* Test Item Value Reference Range Interpretation Comments Mean Corpuscular Volume (test code = 787-2) 85.0 81-99 [facility] PlanoMean Corpuscular Piadtzpecg1758-15-33 23:41:00* Test Item Value Reference Range Interpretation Comments Mean Corpuscular Hemoglobin (test code = 785-6) 29.7 28-32 [facility] PlanoMean Corpuscular Hemoglobin Concent 2018-05-11 23:41:00* Test Item Value Reference Range Interpretation Comments Mean Corpuscular Hemoglobin Concent (test code = 786-4) 34.9 31-35 [facility] PlanoRed Cell Distribution Vpthj6607-15-10 23:41:00* Test Item Value Reference Range Interpretation Comments Red Cell Distribution Width (test code = 64452-7) 12.3 11.7 -14.4 [facility] PlanoPlatelet Gklhu8393-36-88 23:41:00* Test Item Value Reference Range Interpretation Comments Platelet Count (test code = 777-3) 200 140-360 [facility] PlanoNeutrophils (%) (Auto)2018-05-11 23:41:00 * Test Item Value Reference Range Interpretation Comments Neutrophils (%) (Auto) (test code = 46368-6) 44.8 38.7-80.0 [facility] PlanoLymphocytes (%) (Auto)2018-05-11 23:41:00 * Test Item Value Reference Range Interpretation Comments Lymphocytes (%) (Auto) (test code = 736-9) 47.1 18.0-39.1 H [facility] PlanoMonocytes (%) (Auto)2018-05-11 23:41:00* Test Item Value Reference Range Interpretation Comments Monocytes (%) (Auto) (test code = 5905-5) 5.5 4.4-11.3 [facility] PlanoEosinophils (%) (Auto)2018-05-11 23:41:00 * Test Item Value Reference Range Interpretation Comments Eosinophils (%) (Auto) (test code = 713-8) 2.2 0.0-6.0 [facility] PlanoBasophils (%) (Auto)2018-05-11 23:41:00* Test Item Value Reference Range Interpretation Comments Basophils (%) (Auto) (test code = 706-2) 0.3 0.0-1.0 [facility] PlanoIM GRANULOCYTES %2018-05-11 23:41:00* Test Item Value Reference Range Interpretation Comments IM GRANULOCYTES % (test code = IM GRANULOCYTES %) 0.1 0.0- 1.0 [facility] PlanoNeutrophils # (Auto)2018-05-11 23:41:00* Test Item Value Reference Range Interpretation Comments Neutrophils # (Auto) (test code = 751-8) 3.0 2.1-6.9 [facility] PlanoLymphocytes # (Auto)2018-05-11 23:41:00* Test Item Value Reference Range Interpretation Comments Lymphocytes # (Auto) (test code = 48738-4) 3.2 1.0-3.2 [facility] PlanoMonocytes # (Auto)2018-05-11 23:41:00* Test Item Value Reference Range Interpretation Comments Monocytes # (Auto) (test code = 742-7) 0.4 0.2-0.8 [facility] PlanoEosinophils # (Auto)2018-05-11 23:41:00* Test Item Value Reference Range Interpretation Comments Eosinophils # (Auto) (test code = 711-2) 0.2 0.0-0.4 [facility] [facility] [place]Auto)2018-05-11 23:41:00* Test Item Value Reference Range Interpretation Comments Basophils # (Auto) (test code = 704-7) 0.0 0.0-0.1 [facility] [place]Absolute Immature Granulocyte (auto 2018-05-11 23:41:00* Test Item Value Reference Range Interpretation Comments Absolute Immature Granulocyte (auto (boris t code = Absolute Immature Granulocyte (auto) 0.01 0-0.1 [facility] [place]Blood Ovmjtzs8543-85-73 21:14:00* Test Item Value Reference Range Interpretation Comments Blood Culture (test code = 41642172) NO GROWTH AFTER 5 DAYS, FINAL REPORT [facility] Vasmyoz1073-93-76 21:14:00* Test Item Value Reference Range Interpretation Comments Blood Culture (test code = 61447762) NO GROWTH AFTER 5 DAYS, FINAL REPORT [facility]2018-05-16 21:14:00* Test Item Value Reference Range Interpretation Comments Blood Culture (test code = 11137649) NO GROWTH AFTER 48 HOURS [facility] [place]Vancomycin Level Lvbjgv0589-39-90 09:07:00* Test Item Value Reference Range Interpretation Comments Vancomycin Level Trough (test code = 4092-3) 3.8 5.0-10.0 L [facility] [place]Vancomycin Level Xzehge9808-35-05 09:07:00* Test Item Value Reference Range Interpretation Comments Vancomycin Level Trough (test code = 4092-3) 3.8 5.0-10.0 L [facility] [place]Vancomycin Level Apjcmj0477-95-60 09:07:00* Test Item Value Reference Range Interpretation Comments Vancomycin Level Trough (test code = 4092-3) 3.8 5.0-10.0 [facility] Zjniy1839-68-45 06:59:00* Test Item Value Reference Range Interpretation Comments Sodium Level (test code = 2951-2) 137 136-145 [facility] [place]Potassium Eglbv2846-81-31 06:59:00* Test Item Value Reference Range Interpretation Comments Potassium Level (test code = 2823-3) 3.7 3.5-5.1 [facility] [place]Chloride Rsyhe3055-69-96 06:59:00* Test Item Value Reference Range Interpretation Comments Chloride Level (test code = 2075-0) 104 98-107 [facility] [place]Carbon Dioxide Szzor0458-60-71 06:59:00* Test Item Value Reference Range Interpretation Comments Carbon Dioxide Level (test code = 2028-9) 25 22-29 [facility] [place]anoAnion Yif6679-38-77 06:59:00* Test Item Value Reference Range Interpretation Comments Anion Gap (test code = 32071-5) 11.7 8-16 [facility] [place]Blood Urea Xkuoqkym4509-56-32 06:59:00* Test Item Value Reference Range Interpretation Comments Blood Urea Nitrogen (test code = 3094-0) 12 7-26 [facility] [place]Creatinine2018-05-16 06:59:00* Test Item Value Reference Range Interpretation Comments Creatinine (test code = 2160-0) 0.77 0.72-1.25 [facility] [place]anoBUN/Creatinine Enbbq9687-66-30 06:59:00* Test Item Value Reference Range Interpretation Comments BUN/Creatinine Ratio (test code = 3097-3) 16 6-25 [facility] [place]anoEstimat Glomerular Filtration Rate 2017-12-24 06:59:00* Test Item Value Reference Range Interpretation Comments Estimat Glomerular Filtration Rate (test code = 10970-7) 60- >60 Ranges were taken from the National Kidney Disease Education Program and the [facility] literature.Reference ranges:60 or greater: Zfrcdf04-83 ( for 3 consecutive months): Chronic kidney disease 15 or less: Kidney failureBaylor Scott and [facility] the [facility] – [place]anoGlucose Toqmi6731-35-30 06:59:00* Test Item Value Reference Range Interpretation Comments Glucose Level (test code = UTD3005) 115 74-118 [facility] [place]anoCalcium Beowl3595-20-53 06:59:00* Test Item Value Reference Range Interpretation Comments Calcium Level (test code = 77837-6) 9.3 8.4-10.2 [facility] [place]anoWhite Blood Kitzb8554-74-93 06:50:00* Test Item Value Reference Range Interpretation Comments White Blood Count (test code = 6690-2) 6.16 4.8-10.8 [facility] [place]anoRed Blood Gswav0018-47-20 06:50:00* Test Item Value Reference Range Interpretation Comments Red Blood Count (test code = 789-8) 4.65 4.3-5.7 [facility] [place]anoHemoglobin2018-05-16 06:50:00* Test Item Value Reference Range Interpretation Comments Hemoglobin (test code = 21540-5) 13.8 14.0-18.0 L [facility] [place]anoHematocrit2018-05-16 06:50:00* Test Item Value Reference Range Interpretation Comments Hematocrit (test code = 4544-3) 39.6 38.2-49.6 [facility] [place]anoMean Corpuscular Pmykmt4589-30-80 06:50:00* Test Item Value Reference Range Interpretation Comments Mean Corpuscular Volume (test code = 787-2) 85.2 81-99 [facility] [place]anoMean Corpuscular Hoinquyspp6569-31-94 06:50:00* Test Item Value Reference Range Interpretation Comments Mean Corpuscular Hemoglobin (test code = 785-6) 29.7 28-32 [facility] [place]anoMean Corpuscular Hemoglobin Concent 2017-12-24 06:50:00* Test Item Value Reference Range Interpretation Comments Mean Corpuscular Hemoglobin Concent (test code = 786-4) 34.8 31-35 [facility] [place]anoRed Cell Distribution Mxipz5507-36-25 06:50:00* Test Item Value Reference Range Interpretation Comments Red Cell Distribution Width (test code = 54688-3) 11.8 11.7 -14.4 [facility] [place]anoPlatelet Vsmua5968-02-65 06:50:00* Test Item Value Reference Range Interpretation Comments Platelet Count (test code = 777-3) 173 140-360 [facility] [place]anoNeutrophils (%) (Auto)2017-12-24 06:50:00 * Test Item Value Reference Range Interpretation Comments Neutrophils (%) (Auto) (test code = 20753-7) 53.5 38.7-80.0 [facility] [place]anoLymphocytes (%) (Auto)2017-12-24 06:50:00 * Test Item Value Reference Range Interpretation Comments Lymphocytes (%) (Auto) (test code = 736-9) 32.8 18.0-39.1 [facility] [place]anoMonocytes (%) (Auto)2017-12-24 06:50:00* Test Item Value Reference Range Interpretation Comments Monocytes (%) (Auto) (test code = 5905-5) 9.6 4.4-11.3 [facility] [place]Eosinophils (%) (Auto)2017-12-24 06:50:00 * Test Item Value Reference Range Interpretation Comments Eosinophils (%) (Auto) (test code = 713-8) 3.6 0.0-6.0 [facility] [place]Basophils (%) (Auto)2017-12-24 06:50:00* Test Item Value Reference Range Interpretation Comments Basophils (%) (Auto) (test code = 706-2) 0.3 0.0-1.0 [facility] [place]anoIM GRANULOCYTES %2017-12-24 06:50:00* Test Item Value Reference Range Interpretation Comments IM GRANULOCYTES % (test code = IM GRANULOCYTES %) 0.2 0.0- 1.0 [facility] [place]anoNeutrophils # (Auto)2017-12-24 06:50:00* Test Item Value Reference Range Interpretation Comments Neutrophils # (Auto) (test code = 751-8) 3.3 2.1-6.9 [facility] [place]anoLymphocytes # (Auto)2017-12-24 06:50:00* Test Item Value Reference Range Interpretation Comments Lymphocytes # (Auto) (test code = 78543-4) 2.0 1.0-3.2 [facility] [place]anoMonocytes # (Auto)2017-12-24 06:50:00* Test Item Value Reference Range Interpretation Comments Monocytes # (Auto) (test code = 742-7) 0.6 0.2-0.8 [facility] [place]anoEosinophils # (Auto)2017-12-24 06:50:00* Test Item Value Reference Range Interpretation Comments Eosinophils # (Auto) (test code = 711-2) 0.2 0.0-0.4 [facility] [place]Basophils # (Auto)2017-12-24 06:50:00* Test Item Value Reference Range Interpretation Comments Basophils # (Auto) (test code = 704-7) 0.0 0.0-0.1 [facility] [place]anoAbsolute Immature Granulocyte (auto 2017-12-24 06:50:00* Test Item Value Reference Range Interpretation Comments Absolute Immature Granulocyte (auto (boris t code = Absolute Immature Granulocyte (auto) 0.01 0-0.1 [facility] [place]anoTotal Burautzwe4275-53-55 09:57:00* Test Item Value Reference Range Interpretation Comments Total Bilirubin (test code = 1975-2) 0.4 0.2-1.2 [facility] [place]anoAspartate Amino Transf (AST/SGOT) 2017-12-23 09:57:00* Test Item Value Reference Range Interpretation Comments Aspartate Amino Transf (AST/SGOT) (test code = Aspartate Amino Transf (AST/SGOT)) 20 5-34 [facility] [place]anoAlanine Aminotransferase (ALT/SGPT) 2017-12-23 09:57:00* Test Item Value Reference Range Interpretation Comments Alanine Aminotransferase (ALT/SGPT) (test code = 1742-6) 24 0-55 [facility] [place]anoTotal Butqhvs6331-45-68 09:57:00* Test Item Value Reference Range Interpretation Comments Total Protein (test code = 2885-2) 6.6 6.5-8.1 [facility] [place]anoAlbumin2018-05-15 09:57:00* Test Item Value Reference Range Interpretation Comments Albumin (test code = 1751-7) 3.4 3.5-5.0 L [facility] [place]anoGlobulin2018-05-15 09:57:00* Test Item Value Reference Range Interpretation Comments Globulin (test code = 80377-5) 3.2 2.3-3.5 [facility] [place]anoAlbumin/Globulin Jbple7717-91-53 09:57:00 * Test Item Value Reference Range Interpretation Comments Albumin/Globulin Ratio (test code = 1759-0) 1.1 0.8-2.0 [facility] [place]anoAlkaline Ynjhisnxoki1358-10-08 09:57:00* Test Item Value Reference Range Interpretation Comments Alkaline Phosphatase (test code = 6768-6) 86 40-150 [facility] [place]anoCreatine Kinase [id number] 21:49:00* Test Item Value Reference Range Interpretation Comments Creatine Kinase MB (test code = 86411-8) 1.40 0-5.0 [facility] [place]anoTroponin [id number] 21:49:00* Test Item Value Reference Range Interpretation Comments Troponin I (test code = CFN8448) -0.001 0-0.300 [facility] [place]anoCreatine Xdlhfq2013-97-22 21:43:00* Test Item Value Reference Range Interpretation Comments Creatine Kinase (test code = 2157-6) 339 30-200 H [facility] PlanoLactic Acid Vmtxm1297-89-55 21:30:00* Test Item Value Reference Range Interpretation Comments Lactic Acid Level (test code = Lactic Acid Level) 8.5 4.5- 19.8 [facility] [place]anoLactic Acid Vjhny3451-16-78 21:30:00* Test Item Value Reference Range Interpretation Comments Lactic Acid Level (test code = Lactic Acid Level) 8.5 4.5- 19.8 [facility] [place]anoLactic Acid Shkzi7015-61-85 21:30:00* Test Item Value Reference Range Interpretation Comments Lactic Acid Level (test code = Lactic Acid Level) 8.5 4.5- 19.8 [facility] [place]anoProthrombin Xakp6235-77-46 21:24:00* Test Item Value Reference Range Interpretation Comments Prothrombin Time (test code = 5902-2) 12.7 11.9-14.5 [facility] [place]anoProthromb Time International Ratio 2017-12-22 21:24:00* Test Item Value Reference Range Interpretation Comments Prothromb Time International Ratio (test code = 6301-6) 1.03 Oral Anticoagulant Therapy INR Values:1. Low Intensity Therapy 1.5 - 2.02 . Moderate Intensity Therapy 2.0 - 3.03. High Intensity Therapy(1) 2.5 - 3. 54. High Intensity Therapy(2) 3.0 - 4.05. Panic Value INR > 5.0 [facility] PlanoActivated Partial Thromboplast Time 2017-12-22 21:24:00* Test Item Value Reference Range Interpretation Comments Activated Partial Thromboplast Time (test code = 06411-9) 33.3 23.8-35.5 [facility] PlanoD-Dimer Quantitative (PE/DVT)2017-04-27 20:41:00* Test Item Value Reference Range Interpretation Comments D-Dimer Quantitative (PE/DVT) (test code = 28429-4) 0.41 0. 00-0.45 [facility] PlanoB-Type Natriuretic Mwqwowf6737-82-54 20:21:00* Test Item Value Reference Range Interpretation Comments B-Type Natriuretic Peptide (test code = 63423-6) -10.0 0-100 [facility] PlanoUrine [id number] 20:19:00* Test Item Value Reference Range Interpretation Comments Urine WBC (test code = 5821-4) 0-5 0-5 [facility] [place]anoUrine [id number] 20:19:00* Test Item Value Reference Range Interpretation Comments Urine RBC (test code = 29800-8) 0-5 0-5 [facility] [place]anoUrine Tjllnbon9775-26-64 20:19:00* Test Item Value Reference Range Interpretation Comments Urine Bacteria (test code = 14009-2) FEW NONE [facility] PlanoUrine Epithelial Vnhnq5050-29-22 20:19:00 * Test Item Value Reference Range Interpretation Comments Urine Epithelial Cells (test code = 97458-8) RARE NONE [facility] PlanoUrine Kqpbq0146-88-69 20:03:00* Test Item Value Reference Range Interpretation Comments Urine Color (test code = 5778-6) YELLOW YELLOW [facility] PlanoUrine Nxjwwjl7205-13-31 20:03:00* Test Item Value Reference Range Interpretation Comments Urine Clarity (test code = 10446-6) CLEAR CLEAR [facility] PlanoUrine Specific Greetll7375-59-30 20:03:00 * Test Item Value Reference Range Interpretation Comments Urine Specific [place] (test code = 5811-5) 1.015 1.010-1.02 5 [facility] [place]anoUrine [id number] 20:03:00* Test Item Value Reference Range Interpretation Comments Urine pH (test code = 28688-8) 7 5-7 [facility] [place]anoUrine Leukocyte Wyzvlzbe4905-69-86 20:03:00* Test Item Value Reference Range Interpretation Comments Urine Leukocyte Esterase (test code = 5799-2) NEGATIVE NEGATIVE [facility] PlanoUrine Ojpcqow0961-29-73 20:03:00* Test Item Value Reference Range Interpretation Comments Urine Nitrite (test code = 97106-3) NEGATIVE NEGATIVE [facility] [place]anoUrine Seulykn4184-79-61 20:03:00* Test Item Value Reference Range Interpretation Comments Urine Protein (test code = 5804-0) NEGATIVE NEGATIVE [facility] [place]anoUrine Glucose (UA)2017-04-27 20:03:00* Test Item Value Reference Range Interpretation Comments Urine Glucose (UA) (test code = 2349-9) NEGATIVE NEGATIVE [facility] [place]anoUrine Pyyusvc3791-55-12 20:03:00* Test Item Value Reference Range Interpretation Comments Urine Ketones (test code = 17267-3) NEGATIVE NEGATIVE [facility] Tatvqavwbhqw6429-02-53 20:03:00* Test Item Value Reference Range Interpretation Comments Urine Urobilinogen (test code = 29951-9) 0.2 0.2-1 [facility]anoUrine Yooeyqgiy9634-16-98 20:03:00* Test Item Value Reference Range Interpretation Comments Urine Bilirubin (test code = 1978-6) NEGATIVE NEGATIVE [facility] Xngzc8353-26-28 20:03:00* Test Item Value Reference Range Interpretation Comments Urine Blood (test code = 18704-7) NEGATIVE NEGATIVE [facility] PlanoCBC W/PLT COUNT & AUTO DIFFERENTIAL 2017-04-20 07:12:00* Test Item Value Reference Range Interpretation Comments WHITE BLOOD CELL COUNT (BEAKER) (test code = 775) 6.1 K/ L 3.5- 10.5 RED BLOOD CELL COUNT (BEAKER) (test code = 761) 5.15 M/ L 4.63-6 .08 HEMOGLOBIN (BEAKER) (test code = 410) 15.4 GM/DL 13.7-17.5 HEMATOCRIT (BEAKER) (test code = 411) 44.9 % 40.1-51.0 MEAN CORPUSCULAR VOLUME (BEAKER) (test code = 753) 87.2 fL 79. 0-92.2 MEAN CORPUSCULAR HEMOGLOBIN (BEAKER) (test code = 751) 29.9 pg 25.7-32.2 MEAN CORPUSCULAR HEMOGLOBIN CONC (BEAKER) (test code = 752) 34.3 GM/DL 32.3-36.5 RED CELL DISTRIBUTION WIDTH (BEAKER) (test code = 412) 12.3 % 11.6-14.4 PLATELET COUNT (BEAKER) (test code = 756) 162 K/CU MM 150-450 MEAN PLATELET VOLUME (BEAKER) (test code = 754) 9.9 fL 9.4-12 .4 NUCLEATED RED BLOOD CELLS (BEAKER) (test code = 413) 0 /100 WBC 0 -0 NEUTROPHILS RELATIVE PERCENT (BEAKER) (test code = 429) 46 % LYMPHOCYTES RELATIVE PERCENT (BEAKER) (test code = 430) 45 % MONOCYTES RELATIVE PERCENT (BEAKER) (test code = 431) 7 % EOSINOPHILS RELATIVE PERCENT (BEAKER) (test code = 432) 2 % BASOPHILS RELATIVE PERCENT (BEAKER) (test code = 437) 0 % NEUTROPHILS ABSOLUTE COUNT (BEAKER) (test code = 670) 2.76 K/ L 1.78-5.38 LYMPHOCYTES ABSOLUTE COUNT (BEAKER) (test code = 414) 2.72 K/ L 1.32-3.57 MONOCYTES ABSOLUTE COUNT (BEAKER) (test code = 415) 0.41 K/ L 0. 30-0.82 EOSINOPHILS ABSOLUTE COUNT (BEAKER) (test code = 416) 0.14 K/ L 0.04-0.54 BASOPHILS ABSOLUTE COUNT (BEAKER) (test code = 417) 0.02 K/ L 0. 01-0.08 IMMATURE GRANULOCYTES-RELATIVE PERCENT (BEAKER) (test code = 2801) 0 % 0-1 (MANUAL DIFFERENTIAL)2017-04-20 07:12:00* Test Item Value Reference Range Interpretation Comments TOTAL COUNTED (BEAKER) (test code = 1351) WBC MORPHOLOGY (BEAKER) (test code = 487) Normal PLT MORPHOLOGY (BEAKER) (test code = 486) Normal RBC MORPHOLOGY (BEAKER) (test code = 762) Normal BASIC METABOLIC [id number] 06:26:00* Test Item Value Reference Range Interpretation Comments SODIUM (BEAKER) (test code = 381) 138 meq/L 136-145 POTASSIUM (BEAKER) (test code = 379) 4.0 meq/L 3.5-5.1 Specimen slightly hemolyzed CHLORIDE (BEAKER) (test code = 382) 105 meq/L 98-107 CO2 (BEAKER) (test code = 355) 24 meq/L 22-29 BLOOD UREA NITROGEN (BEAKER) (test code = 354) 16 mg/dL 7-21 CREATININE (BEAKER) (test code = 358) 0.97 mg/dL 0.57-1.25 Specimen slightly hemolyzed GLUCOSE RANDOM (BEAKER) (test code = 652) 97 mg/dL 70-105 CALCIUM (BEAKER) (test code = 697) 9.1 mg/dL 8.4-10.2 EGFR (BEAKER) (test code = 1092) 89 mL/min/1.73 sq m ESTIMATED GFR IS NOT ACCURATE CREATININE CLEARANCE IN PREDICTING GLOMERULAR FILTRATION RATE. ESTIMATED GFR IS NOT APPLICABLE FOR DIALYSIS PATIENTS. RAD, CHEST, PA OR AP, 1 [id number] 06:20:00Reason for exam:->coughShould this be performed at [...] evidence of an acute cardiopulmonary process. Signed: Garrett Gonzalez MDReport Verified Date/Time: 04/20/2017 06:20:34 Reading Location: [address] Reading Room /[id number] 06:18:00 * Test Item Value Reference Range Interpretation Comments PROTIME (BEAKER) (test code = 759) 14.2 seconds 11.7-14.7 INR (BEAKER) (test code = 370) 1.1 <=5.9 PARTIAL THROMBOPLASTIN TIME (BEAKER) (test code = 760) 29.2 seconds 22.5-36.0 RECOMMENDED COUMADIN/WARFARIN INR THERAPY RANGESSTANDARD DOSE: 2.0 - 3.0 Inclu gemma: PROPHYLAXIS for venous thrombosis, systemic embolization; TREATMENT for chris ous thrombosis and/or pulmonary embolus.HIGH RISK: Target INR is 2.5-3.5 for pat ients with mechanical heart valves.OVA AND PARASITE [id number] 14:17:00* Test Item Value Reference Range Interpretation Comments DIRECT SMEAR - O\T\P (BEAKER) (test code = 196) No ova or pa rasites seen No ova or parasites seen CONCENTRATE SMEAR - O\T\P (BEAKER) (test code = 247) No ova or parasites seen No ova or parasites seen TRICHROME SMEAR - O\T\P (BEAKER) (test code = 248) No ova or parasites seen No ova or parasites seen One negative sample does not necessarily rule out the presence of a parasitic in fection.Performing Laboratory: Done In :[address] [address] Folder Inspector: Brooke Adams MD, RICHARD P STOOL CULTURE + SHIGA [id number] 14:17:00* Test Item Value Reference Range Interpretation Comments CULTURE (BEAKER) (test code = 1095) No Salmonella, Nancy gella or Campylobacter isolated SHIGA TOXIN [id number] 13:54:00* Test Item Value Reference Range Interpretation Comments SHIGA TOXIN 1 (BEAKER) (test code = 2177) Not detected Not detected SHIGA TOXIN 2 (BEAKER) (test code = 2179) Not detected Not detected BASIC METABOLIC [id number] 05:10:00* Test Item Value Reference Range Interpretation Comments SODIUM (BEAKER) (test code = 381) 136 meq/L 136-145 POTASSIUM (BEAKER) (test code = 379) 4.1 meq/L 3.5-5.1 CHLORIDE (BEAKER) (test code = 382) 104 meq/L 98-107 CO2 (BEAKER) (test code = 355) 21 meq/L 22-29 L BLOOD UREA NITROGEN (BEAKER) (test code = 354) 18 mg/dL 7-21 CREATININE (BEAKER) (test code = 358) 0.87 mg/dL 0.57-1.25 GLUCOSE RANDOM (BEAKER) (test code = 652) 99 mg/dL 70-105 CALCIUM (BEAKER) (test code = 697) 8.7 mg/dL 8.4-10.2 EGFR (BEAKER) (test code = 1092) 100 mL/min/1.73 sq m ESTIMATED GFR IS NOT ACCURATE CREATININE CLEARANCE IN PREDICTING GLOMERULAR FILTRATION RATE. ESTIMATED GFR IS NOT APPLICABLE FOR DIALYSIS PATIENTS. CBC W/PLT COUNT & AUTO [id number] 04:28:00* Test Item Value Reference Range Interpretation Comments WHITE BLOOD CELL COUNT (BEAKER) (test code = 775) 5.3 K/ L 4.0- 10.0 RED BLOOD CELL COUNT (BEAKER) (test code = 761) 4.81 M/ L 4.20-5 .80 HEMOGLOBIN (BEAKER) (test code = 410) 14.6 GM/DL 13.0-16.8 HEMATOCRIT (BEAKER) (test code = 411) 42.5 % 40.0-50.0 MEAN CORPUSCULAR VOLUME (BEAKER) (test code = 753) 88.2 fL 82. 0-98.0 MEAN CORPUSCULAR HEMOGLOBIN (BEAKER) (test code = 751) 30.3 pg 27.0-33.0 MEAN CORPUSCULAR HEMOGLOBIN CONC (BEAKER) (test code = 752) 34.4 GM/DL 32.0-36.0 RED CELL DISTRIBUTION WIDTH (BEAKER) (test code = 412) 11.7 % 10.3-14.2 PLATELET COUNT (BEAKER) (test code = 756) 164 K/CU MM 150-430 MEAN PLATELET VOLUME (BEAKER) (test code = 754) 6.8 fL 6.5-10 .5 NUCLEATED RED BLOOD CELLS (BEAKER) (test code = 413) 0 /100 WBC 0 -0 NEUTROPHILS RELATIVE PERCENT (BEAKER) (test code = 429) 42 % LYMPHOCYTES RELATIVE PERCENT (BEAKER) (test code = 430) 44 % MONOCYTES RELATIVE PERCENT (BEAKER) (test code = 431) 11 % EOSINOPHILS RELATIVE PERCENT (BEAKER) (test code = 432) 2 % BASOPHILS RELATIVE PERCENT (BEAKER) (test code = 437) 0 % NEUTROPHILS ABSOLUTE COUNT (BEAKER) (test code = 670) 2.24 K/ L 1.80-8.00 LYMPHOCYTES ABSOLUTE COUNT (BEAKER) (test code = 414) 2.32 K/ L 1.48-4.50 MONOCYTES ABSOLUTE COUNT (BEAKER) (test code = 415) 0.59 K/ L 0. 00-1.30 EOSINOPHILS ABSOLUTE COUNT (BEAKER) (test code = 416) 0.12 K/ L 0.00-0.50 BASOPHILS ABSOLUTE COUNT (BEAKER) (test code = 417) 0.02 K/ L 0. 00-0.20 0.00(MANUAL DIFFERENTIAL)2016-12-28 04:28:00* Test Item Value Reference Range Interpretation Comments TOTAL COUNTED (BEAKER) (test code = 1351) STOOL PATH [id number] 12:01:00* Test Item Value Reference Range Interpretation Comments PATHOGEN EXAM CHARGED (BEAKER) (test code = 2381) Done CBC W/PLT COUNT & AUTO [id number] 10:26:00* Test Item Value Reference Range Interpretation Comments WHITE BLOOD CELL COUNT (BEAKER) (test code = 775) 6.5 K/ L 4.0- 10.0 RED BLOOD CELL COUNT (BEAKER) (test code = 761) 5.28 M/ L 4.20-5 .80 HEMOGLOBIN (BEAKER) (test code = 410) 16.5 GM/DL 13.0-16.8 HEMATOCRIT (BEAKER) (test code = 411) 45.9 % 40.0-50.0 MEAN CORPUSCULAR VOLUME (BEAKER) (test code = 753) 87.0 fL 82. 0-98.0 MEAN CORPUSCULAR HEMOGLOBIN (BEAKER) (test code = 751) 31.3 pg 27.0-33.0 MEAN CORPUSCULAR HEMOGLOBIN CONC (BEAKER) (test code = 752) 35.9 GM/DL 32.0-36.0 RED CELL DISTRIBUTION WIDTH (BEAKER) (test code = 412) 11.9 % 10.3-14.2 PLATELET COUNT (BEAKER) (test code = 756) 194 K/CU MM 150-430 MEAN PLATELET VOLUME (BEAKER) (test code = 754) 7.3 fL 6.5-10 .5 NUCLEATED RED BLOOD CELLS (BEAKER) (test code = 413) 0 /100 WBC 0 -0 NEUTROPHILS RELATIVE PERCENT (BEAKER) (test code = 429) 44 % LYMPHOCYTES RELATIVE PERCENT (BEAKER) (test code = 430) 44 % MONOCYTES RELATIVE PERCENT (BEAKER) (test code = 431) 8 % EOSINOPHILS RELATIVE PERCENT (BEAKER) (test code = 432) 3 % BASOPHILS RELATIVE PERCENT (BEAKER) (test code = 437) 1 % NEUTROPHILS ABSOLUTE COUNT (BEAKER) (test code = 670) 2.85 K/ L 1.80-8.00 LYMPHOCYTES ABSOLUTE COUNT (BEAKER) (test code = 414) 2.86 K/ L 1.48-4.50 MONOCYTES ABSOLUTE COUNT (BEAKER) (test code = 415) 0.53 K/ L 0. 00-1.30 EOSINOPHILS ABSOLUTE COUNT (BEAKER) (test code = 416) 0.21 K/ L 0.00-0.50 BASOPHILS ABSOLUTE COUNT (BEAKER) (test code = 417) 0.05 K/ L 0. 00-0.20 0.00(MANUAL DIFFERENTIAL)2016-12-27 10:26:00* Test Item Value Reference Range Interpretation Comments TOTAL COUNTED (BEAKER) (test code = 1351) WBC MORPHOLOGY (BEAKER) (test code = 487) Normal PLT MORPHOLOGY (BEAKER) (test code = 486) Normal RBC MORPHOLOGY (BEAKER) (test code = 762) Normal BASIC METABOLIC [id number] 05:37:00* Test Item Value Reference Range Interpretation Comments SODIUM (BEAKER) (test code = 381) 137 meq/L 136-145 POTASSIUM (BEAKER) (test code = 379) 4.4 meq/L 3.5-5.1 Specimen moderately hemolyzed CHLORIDE (BEAKER) (test code = 382) 103 meq/L 98-107 CO2 (BEAKER) (test code = 355) 20 meq/L 22-29 L BLOOD UREA NITROGEN (BEAKER) (test code = 354) 13 mg/dL 7-21 CREATININE (BEAKER) (test code = 358) 0.94 mg/dL 0.57-1.25 Specimen moderately hemolyzed GLUCOSE RANDOM (BEAKER) (test code = 652) 99 mg/dL 70-105 CALCIUM (BEAKER) (test code = 697) 9.3 mg/dL 8.4-10.2 EGFR (BEAKER) (test code = 1092) 92 mL/min/1.73 sq m ESTIMATED GFR IS NOT ACCURATE CREATININE CLEARANCE IN PREDICTING GLOMERULAR FILTRATION RATE. ESTIMATED GFR IS NOT APPLICABLE FOR DIALYSIS PATIENTS. FECAL [id number] 18:34:00* Test Item Value Reference Range Interpretation Comments FECAL LEUKOCYTES (BEAKER) (test code = 992) No fecal leukocy boris seen No fecal leukocytes seen CBC W/PLT COUNT & AUTO [id number] 08:54:00* Test Item Value Reference Range Interpretation Comments WHITE BLOOD CELL COUNT (BEAKER) (test code = 775) 5.4 K/ L 4.0- 10.0 RED BLOOD CELL COUNT (BEAKER) (test code = 761) 4.80 M/ L 4.20-5 .80 HEMOGLOBIN (BEAKER) (test code = 410) 16.0 GM/DL 13.0-16.8 HEMATOCRIT (BEAKER) (test code = 411) 40.8 % 40.0-50.0 MEAN CORPUSCULAR VOLUME (BEAKER) (test code = 753) 84.9 fL 82. 0-98.0 MEAN CORPUSCULAR HEMOGLOBIN (BEAKER) (test code = 751) 33.3 pg 27.0-33.0 H MEAN CORPUSCULAR HEMOGLOBIN CONC (BEAKER) (test code = 752) 39.2 GM/DL 32.0-36.0 H RED CELL DISTRIBUTION WIDTH (BEAKER) (test code = 412) 12.8 % 10.3-14.2 PLATELET COUNT (BEAKER) (test code = 756) 176 K/CU MM 150-430 MEAN PLATELET VOLUME (BEAKER) (test code = 754) 7.9 fL 6.5-10 .5 NUCLEATED RED BLOOD CELLS (BEAKER) (test code = 413) 0 /100 WBC 0 -0 NEUTROPHILS RELATIVE PERCENT (BEAKER) (test code = 429) 42 % LYMPHOCYTES RELATIVE PERCENT (BEAKER) (test code = 430) 48 % MONOCYTES RELATIVE PERCENT (BEAKER) (test code = 431) 7 % EOSINOPHILS RELATIVE PERCENT (BEAKER) (test code = 432) 3 % BASOPHILS RELATIVE PERCENT (BEAKER) (test code = 437) 1 % NEUTROPHILS ABSOLUTE COUNT (BEAKER) (test code = 670) 2.27 K/ L 1.80-8.00 LYMPHOCYTES ABSOLUTE COUNT (BEAKER) (test code = 414) 2.59 K/ L 1.48-4.50 MONOCYTES ABSOLUTE COUNT (BEAKER) (test code = 415) 0.37 K/ L 0. 00-1.30 EOSINOPHILS ABSOLUTE COUNT (BEAKER) (test code = 416) 0.14 K/ L 0.00-0.50 BASOPHILS ABSOLUTE COUNT (BEAKER) (test code = 417) 0.04 K/ L 0. 00-0.20 0.00(MANUAL DIFFERENTIAL)2016-12-26 08:54:00* Test Item Value Reference Range Interpretation Comments TOTAL COUNTED (BEAKER) (test code = 1351) WBC MORPHOLOGY (BEAKER) (test code = 487) Normal PLT MORPHOLOGY (BEAKER) (test code = 486) Normal RBC MORPHOLOGY (BEAKER) (test code = 762) Normal BASIC METABOLIC [id number] 06:00:00* Test Item Value Reference Range Interpretation Comments SODIUM (BEAKER) (test code = 381) 133 meq/L 136-145 L POTASSIUM (BEAKER) (test code = 379) 4.4 meq/L 3.5-5.1 Specimen markedly hemolyzed CHLORIDE (BEAKER) (test code = 382) 101 meq/L 98-107 CO2 (BEAKER) (test code = 355) 16 meq/L 22-29 L BLOOD UREA NITROGEN (BEAKER) (test code = 354) 11 mg/dL 7-21 CREATININE (BEAKER) (test code = 358) 0.82 mg/dL 0.57-1.25 Specimen markedly hemolyzed GLUCOSE RANDOM (BEAKER) (test code = 652) 96 mg/dL 70-105 CALCIUM (BEAKER) (test code = 697) 9.0 mg/dL 8.4-10.2 EGFR (BEAKER) (test code = 1092) 108 mL/min/1.73 sq m ESTIMATED GFR IS NOT ACCURATE CREATININE CLEARANCE IN PREDICTING GLOMERULAR FILTRATION RATE. ESTIMATED GFR IS NOT APPLICABLE FOR DIALYSIS PATIENTS. CLOSTRIDIUM DIFFICILE TOXIN [id number] 16:09:00* Test Item Value Reference Range Interpretation Comments CLOSTRIDIUM DIFFICILE TOXIN, PCR (BEAKER) (test code = 1525) Not Detected Not Detected This qualitative real-time polymerase chain reaction assay detects the tcdB gene , encoded on the C.difficile pathogenicity locus (PaLoc). The product of tcdB, toxin B, is a cytotoxin essential for causing C.difficile-associated disease (CD AD) and is found in virtually all toxigenic C.difficile.This assay is performed for patients suspected of having either community-acquired or nosocomial CDAD. Accordingly, only symptomatic patients should be tested and formed stools will b e rejected unless ileus is present (i.e., specified when ordering). Patients ma y be colonized with toxigenic C.difficile strains not causing active disease; th erefore, clinical correlation is needed when deciding how to manage patients wit h a positive test result.The assay has not been validated as a test of cure as a mplifiable nucleic acid may persist after effective treatment; therefore, follow -up testing of a positive result is not recommended.CBC W/PLT COUNT & AUTO [id number] 08:06:00* Test Item Value Reference Range Interpretation Comments WHITE BLOOD CELL COUNT (BEAKER) (test code = 775) 5.5 K/ L 4.0- 10.0 RED BLOOD CELL COUNT (BEAKER) (test code = 761) 4.98 M/ L 4.20-5 .80 HEMOGLOBIN (BEAKER) (test code = 410) 15.2 GM/DL 13.0-16.8 HEMATOCRIT (BEAKER) (test code = 411) 43.4 % 40.0-50.0 MEAN CORPUSCULAR VOLUME (BEAKER) (test code = 753) 87.0 fL 82. 0-98.0 MEAN CORPUSCULAR HEMOGLOBIN (BEAKER) (test code = 751) 30.5 pg 27.0-33.0 MEAN CORPUSCULAR HEMOGLOBIN CONC (BEAKER) (test code = 752) 35.0 GM/DL 32.0-36.0 RED CELL DISTRIBUTION WIDTH (BEAKER) (test code = 412) 11.5 % 10.3-14.2 PLATELET COUNT (BEAKER) (test code = 756) 176 K/CU MM 150-430 MEAN PLATELET VOLUME (BEAKER) (test code = 754) 6.9 fL 6.5-10 .5 NUCLEATED RED BLOOD CELLS (BEAKER) (test code = 413) 0 /100 WBC 0 -0 NEUTROPHILS RELATIVE PERCENT (BEAKER) (test code = 429) 39 % LYMPHOCYTES RELATIVE PERCENT (BEAKER) (test code = 430) 51 % MONOCYTES RELATIVE PERCENT (BEAKER) (test code = 431) 7 % EOSINOPHILS RELATIVE PERCENT (BEAKER) (test code = 432) 2 % BASOPHILS RELATIVE PERCENT (BEAKER) (test code = 437) 0 % NEUTROPHILS ABSOLUTE COUNT (BEAKER) (test code = 670) 2.15 K/ L 1.80-8.00 LYMPHOCYTES ABSOLUTE COUNT (BEAKER) (test code = 414) 2.82 K/ L 1.48-4.50 MONOCYTES ABSOLUTE COUNT (BEAKER) (test code = 415) 0.41 K/ L 0. 00-1.30 EOSINOPHILS ABSOLUTE COUNT (BEAKER) (test code = 416) 0.13 K/ L 0.00-0.50 BASOPHILS ABSOLUTE COUNT (BEAKER) (test code = 417) 0.02 K/ L 0. 00-0.20 0.00(MANUAL DIFFERENTIAL)2016-12-25 08:06:00* Test Item Value Reference Range Interpretation Comments TOTAL COUNTED (BEAKER) (test code = 1351) WBC MORPHOLOGY (BEAKER) (test code = 487) Normal PLT MORPHOLOGY (BEAKER) (test code = 486) Normal RBC MORPHOLOGY (BEAKER) (test code = 762) Normal [id number] 04:55:00* Test Item Value Reference Range Interpretation Comments MAGNESIUM (BEAKER) (test code = 627) 2.5 mg/dL 1.6-2.6 Specimen slightly hemolyzed BASIC METABOLIC [id number] 04:55:00* Test Item Value Reference Range Interpretation Comments SODIUM (BEAKER) (test code = 381) 136 meq/L 136-145 POTASSIUM (BEAKER) (test code = 379) 4.1 meq/L 3.5-5.1 Specimen slightly hemolyzed CHLORIDE (BEAKER) (test code = 382) 104 meq/L 98-107 CO2 (BEAKER) (test code = 355) 18 meq/L 22-29 L BLOOD UREA NITROGEN (BEAKER) (test code = 354) 10 mg/dL 7-21 CREATININE (BEAKER) (test code = 358) 0.83 mg/dL 0.57-1.25 Specimen slightly hemolyzed GLUCOSE RANDOM (BEAKER) (test code = 652) 96 mg/dL 70-105 CALCIUM (BEAKER) (test code = 697) 9.0 mg/dL 8.4-10.2 EGFR (BEAKER) (test code = 1092) 106 mL/min/1.73 sq m ESTIMATED GFR IS NOT ACCURATE CREATININE CLEARANCE IN PREDICTING GLOMERULAR FILTRATION RATE. ESTIMATED GFR IS NOT APPLICABLE FOR DIALYSIS PATIENTS. CBC W/PLT COUNT & AUTO [id number] 11:27:00* Test Item Value Reference Range Interpretation Comments WHITE BLOOD CELL COUNT (BEAKER) (test code = 775) 6.1 K/ L 4.0- 10.0 RED BLOOD CELL COUNT (BEAKER) (test code = 761) 4.90 M/ L 4.20-5 .80 HEMOGLOBIN (BEAKER) (test code = 410) 14.6 GM/DL 13.0-16.8 HEMATOCRIT (BEAKER) (test code = 411) 43.3 % 40.0-50.0 MEAN CORPUSCULAR VOLUME (BEAKER) (test code = 753) 88.5 fL 82. 0-98.0 MEAN CORPUSCULAR HEMOGLOBIN (BEAKER) (test code = 751) 29.8 pg 27.0-33.0 MEAN CORPUSCULAR HEMOGLOBIN CONC (BEAKER) (test code = 752) 33.7 GM/DL 32.0-36.0 RED CELL DISTRIBUTION WIDTH (BEAKER) (test code = 412) 11.7 % 10.3-14.2 PLATELET COUNT (BEAKER) (test code = 756) 163 K/CU MM 150-430 MEAN PLATELET VOLUME (BEAKER) (test code = 754) 7.3 fL 6.5-10 .5 NUCLEATED RED BLOOD CELLS (BEAKER) (test code = 413) 0 /100 WBC 0 -0 NEUTROPHILS RELATIVE PERCENT (BEAKER) (test code = 429) 40 % LYMPHOCYTES RELATIVE PERCENT (BEAKER) (test code = 430) 48 % MONOCYTES RELATIVE PERCENT (BEAKER) (test code = 431) 7 % EOSINOPHILS RELATIVE PERCENT (BEAKER) (test code = 432) 3 % BASOPHILS RELATIVE PERCENT (BEAKER) (test code = 437) 1 % NEUTROPHILS ABSOLUTE COUNT (BEAKER) (test code = 670) 2.44 K/ L 1.80-8.00 LYMPHOCYTES ABSOLUTE COUNT (BEAKER) (test code = 414) 2.92 K/ L 1.48-4.50 MONOCYTES ABSOLUTE COUNT (BEAKER) (test code = 415) 0.45 K/ L 0. 00-1.30 EOSINOPHILS ABSOLUTE COUNT (BEAKER) (test code = 416) 0.17 K/ L 0.00-0.50 BASOPHILS ABSOLUTE COUNT (BEAKER) (test code = 417) 0.08 K/ L 0. 00-0.20 0.00(MANUAL DIFFERENTIAL)2016-12-24 11:27:00* Test Item Value Reference Range Interpretation Comments TOTAL COUNTED (BEAKER) (test code = 1351) WBC MORPHOLOGY (BEAKER) (test code = 487) Normal PLT MORPHOLOGY (BEAKER) (test code = 486) Normal RBC MORPHOLOGY (BEAKER) (test code = 762) Normal [id number] 06:33:00* Test Item Value Reference Range Interpretation Comments MAGNESIUM (BEAKER) (test code = 627) 2.3 mg/dL 1.6-2.6 BASIC METABOLIC [id number] 06:33:00* Test Item Value Reference Range Interpretation Comments SODIUM (BEAKER) (test code = 381) 137 meq/L 136-145 POTASSIUM (BEAKER) (test code = 379) 3.8 meq/L 3.5-5.1 CHLORIDE (BEAKER) (test code = 382) 105 meq/L 98-107 CO2 (BEAKER) (test code = 355) 21 meq/L 22-29 L BLOOD UREA NITROGEN (BEAKER) (test code = 354) 14 mg/dL 7-21 CREATININE (BEAKER) (test code = 358) 0.91 mg/dL 0.57-1.25 GLUCOSE RANDOM (BEAKER) (test code = 652) 116 mg/dL 70-105 H CALCIUM (BEAKER) (test code = 697) 8.4 mg/dL 8.4-10.2 EGFR (BEAKER) (test code = 1092) 95 mL/min/1.73 sq m ESTIMATED GFR IS NOT ACCURATE CREATININE CLEARANCE IN PREDICTING GLOMERULAR FILTRATION RATE. ESTIMATED GFR IS NOT APPLICABLE FOR DIALYSIS PATIENTS. CBC W/PLT COUNT & AUTO [id number] 06:14:00* Test Item Value Reference Range Interpretation Comments WHITE BLOOD CELL COUNT (BEAKER) (test code = 775) 7.2 K/ L 4.0- 10.0 RED BLOOD CELL COUNT (BEAKER) (test code = 761) 4.98 M/ L 4.20-5 .80 HEMOGLOBIN (BEAKER) (test code = 410) 14.9 GM/DL 13.0-16.8 HEMATOCRIT (BEAKER) (test code = 411) 44.2 % 40.0-50.0 MEAN CORPUSCULAR VOLUME (BEAKER) (test code = 753) 88.8 fL 82. 0-98.0 MEAN CORPUSCULAR HEMOGLOBIN (BEAKER) (test code = 751) 29.9 pg 27.0-33.0 MEAN CORPUSCULAR HEMOGLOBIN CONC (BEAKER) (test code = 752) 33.6 GM/DL 32.0-36.0 RED CELL DISTRIBUTION WIDTH (BEAKER) (test code = 412) 12.0 % 10.3-14.2 PLATELET COUNT (BEAKER) (test code = 756) 165 K/CU MM 150-430 MEAN PLATELET VOLUME (BEAKER) (test code = 754) 7.1 fL 6.5-10 .5 NUCLEATED RED BLOOD CELLS (BEAKER) (test code = 413) 0 /100 WBC 0 -0 NEUTROPHILS RELATIVE PERCENT (BEAKER) (test code = 429) 46 % LYMPHOCYTES RELATIVE PERCENT (BEAKER) (test code = 430) 42 % MONOCYTES RELATIVE PERCENT (BEAKER) (test code = 431) 9 % EOSINOPHILS RELATIVE PERCENT (BEAKER) (test code = 432) 2 % BASOPHILS RELATIVE PERCENT (BEAKER) (test code = 437) 1 % NEUTROPHILS ABSOLUTE COUNT (BEAKER) (test code = 670) 3.31 K/ L 1.80-8.00 LYMPHOCYTES ABSOLUTE COUNT (BEAKER) (test code = 414) 3.04 K/ L 1.48-4.50 MONOCYTES ABSOLUTE COUNT (BEAKER) (test code = 415) 0.69 K/ L 0. 00-1.30 EOSINOPHILS ABSOLUTE COUNT (BEAKER) (test code = 416) 0.14 K/ L 0.00-0.50 BASOPHILS ABSOLUTE COUNT (BEAKER) (test code = 417) 0.05 K/ L 0. 00-0.20 [id number] 06:10:00* Test Item Value Reference Range Interpretation Comments MAGNESIUM (BEAKER) (test code = 627) 2.4 mg/dL 1.6-2.6 BASIC METABOLIC [id number] 06:10:00* Test Item Value Reference Range Interpretation Comments SODIUM (BEAKER) (test code = 381) 139 meq/L 136-145 POTASSIUM (BEAKER) (test code = 379) 3.7 meq/L 3.5-5.1 CHLORIDE (BEAKER) (test code = 382) 104 meq/L 98-107 CO2 (BEAKER) (test code = 355) 27 meq/L 22-29 BLOOD UREA NITROGEN (BEAKER) (test code = 354) 17 mg/dL 7-21 CREATININE (BEAKER) (test code = 358) 0.98 mg/dL 0.57-1.25 GLUCOSE RANDOM (BEAKER) (test code = 652) 89 mg/dL 70-105 CALCIUM (BEAKER) (test code = 697) 8.6 mg/dL 8.4-10.2 EGFR (BEAKER) (test code = 1092) 88 mL/min/1.73 sq m ESTIMATED GFR IS NOT ACCURATE CREATININE CLEARANCE IN PREDICTING GLOMERULAR FILTRATION RATE. ESTIMATED GFR IS NOT APPLICABLE FOR DIALYSIS PATIENTS. HEPATIC FUNCTION [id number] 06:10:00* Test Item Value Reference Range Interpretation Comments TOTAL PROTEIN (BEAKER) (test code = 770) 6.7 gm/dL 6.0-8.3 ALBUMIN (BEAKER) (test code = 1145) 3.9 g/dL 3.5-5.0 BILIRUBIN TOTAL (BEAKER) (test code = 377) 0.6 mg/dL 0.2-1.2 BILIRUBIN DIRECT (BEAKER) (test code = 706) 0.1 mg/dL 0.1-0.5 ALKALINE PHOSPHATASE (BEAKER) (test code = 346) 75 U/L 40-150 AST (SGOT) (BEAKER) (test code = 353) 16 U/L 5-34 ALT (SGPT) (BEAKER) (test code = 347) 18 U/L 6-55 Specimen slightly [id number] 06:10:00* Test Item Value Reference Range Interpretation Comments LIPASE (BEAKER) (test code = 749) 31 U/L 8-78 CREATINE KINASE (CK), TOTAL AND [id number] 00:32:00* Test Item Value Reference Range Interpretation Comments CREATINE KINASE TOTAL (BEAKER) (test code = 380) 130 U/L 29-20 0 CREATINE KINASE-MB (BEAKER) (test code = 750) 1.3 ng/mL 0.0-6.6 CREATINE KINASE-MB INDEX (BEAKER) (test code = 395) 1.0 % Effective 06/28/2014: CK-MB Reference Range ChangeNew: 0.0-6.6 Previous: 0.0- 4.9CK-MB Reference Range:<6.7 Normal6.7-10.0 Borderline>10.0 Abnormal TROPONIN [id number] 00:32:00* Test Item Value Reference Range Interpretation Comments TROPONIN I (BEAKER) (test code = 397) 0.01 ng/mL 0.00-0.03 Effective 06/28/2014: Reference Range ChangeNew: 0.00-0.03 Previous 0.00-0.15T roponin I (TnI) levels must be interpreted in the context of the presenting symp toms and the clinical findings. Elevated TnI levels indicate myocardial damage, but are not specific for ischemic heart disease. Elevated TnI levels are seen in patients with other cardiac conditions (including myocarditis and congestive he art failure), and slight TnI elevations occur in patients with other conditions, including sepsis, renal failure, acidosis, acute neurological disease, and pers istent tachyarrhythmia.BASIC METABOLIC [id number] 00:24:00* Test Item Value Reference Range Interpretation Comments SODIUM (BEAKER) (test code = 381) 141 meq/L 136-145 POTASSIUM (BEAKER) (test code = 379) 3.7 meq/L 3.5-5.1 CHLORIDE (BEAKER) (test code = 382) 104 meq/L 98-107 CO2 (BEAKER) (test code = 355) 27 meq/L 22-29 BLOOD UREA NITROGEN (BEAKER) (test code = 354) 22 mg/dL 7-21 H CREATININE (BEAKER) (test code = 358) 1.07 mg/dL 0.57-1.25 GLUCOSE RANDOM (BEAKER) (test code = 652) 91 mg/dL 70-105 CALCIUM (BEAKER) (test code = 697) 9.5 mg/dL 8.4-10.2 EGFR (BEAKER) (test code = 1092) 79 mL/min/1.73 sq m ESTIMATED GFR IS NOT ACCURATE CREATININE CLEARANCE IN PREDICTING GLOMERULAR FILTRATION RATE. ESTIMATED GFR IS NOT APPLICABLE FOR DIALYSIS PATIENTS. PT/[id number] 00:20:00* Test Item Value Reference Range Interpretation Comments PROTIME (BEAKER) (test code = 759) 12.9 seconds 11.7-14.7 INR (BEAKER) (test code = 370) 1.0 <=5.9 PARTIAL THROMBOPLASTIN TIME (BEAKER) (test code = 760) 25.6 seconds 22.5-36.0 RECOMMENDED COUMADIN/WARFARIN INR THERAPY RANGESSTANDARD DOSE: 2.0 - 3.0 Inclu gemma: PROPHYLAXIS for venous thrombosis, systemic embolization; TREATMENT for chris ous thrombosis and/or pulmonary embolus.HIGH RISK: Target INR is 2.5-3.5 for pat ients with mechanical heart valves.CBC W/PLT COUNT & AUTO [id number] 00:20:00* Test Item Value Reference Range Interpretation Comments WHITE BLOOD CELL COUNT (BEAKER) (test code = 775) 7.7 K/ L 4.0- 10.0 RED BLOOD CELL COUNT (BEAKER) (test code = 761) 5.06 M/ L 4.20-5 .80 HEMOGLOBIN (BEAKER) (test code = 410) 16.1 GM/DL 13.0-16.8 HEMATOCRIT (BEAKER) (test code = 411) 44.3 % 40.0-50.0 MEAN CORPUSCULAR VOLUME (BEAKER) (test code = 753) 87.6 fL 82. 0-98.0 MEAN CORPUSCULAR HEMOGLOBIN (BEAKER) (test code = 751) 31.8 pg 27.0-33.0 MEAN CORPUSCULAR HEMOGLOBIN CONC (BEAKER) (test code = 752) 36.3 GM/DL 32.0-36.0 H RED CELL DISTRIBUTION WIDTH (BEAKER) (test code = 412) 11.9 % 10.3-14.2 PLATELET COUNT (BEAKER) (test code = 756) 141 K/CU MM 150-430 L MEAN PLATELET VOLUME (BEAKER) (test code = 754) 7.1 fL 6.5-10 .5 NUCLEATED RED BLOOD CELLS (BEAKER) (test code = 413) 0 /100 WBC 0 -0 NEUTROPHILS RELATIVE PERCENT (BEAKER) (test code = 429) 49 % LYMPHOCYTES RELATIVE PERCENT (BEAKER) (test code = 430) 41 % MONOCYTES RELATIVE PERCENT (BEAKER) (test code = 431) 8 % EOSINOPHILS RELATIVE PERCENT (BEAKER) (test code = 432) 2 % BASOPHILS RELATIVE PERCENT (BEAKER) (test code = 437) 1 % NEUTROPHILS ABSOLUTE COUNT (BEAKER) (test code = 670) 3.76 K/ L 1.80-8.00 LYMPHOCYTES ABSOLUTE COUNT (BEAKER) (test code = 414) 3.16 K/ L 1.48-4.50 MONOCYTES ABSOLUTE COUNT (BEAKER) (test code = 415) 0.59 K/ L 0. 00-1.30 EOSINOPHILS ABSOLUTE COUNT (BEAKER) (test code = 416) 0.14 K/ L 0.00-0.50 BASOPHILS ABSOLUTE COUNT (BEAKER) (test code = 417) 0.05 K/ L 0. 00-0.20 0.00CHEST XRAY LINE PLACEMENT [place] [address] Patient Name: ALONA GRIFFITH MR #: [id number] : 1980 Age/Sex: 37/M Req #: [id number] Adm Physician: GIUSEPPE FRANCISCO MD Ordered by: GIUSEPPE FRANCISCO MD Report #: [id number] Location: MED/SURG3 Room/Bed: 290 Procedure: 80 DX/CHEST XRAY LINE PLACEMENT Exam Date: 12/23/17 Exam Time: 1725 REPORT STATUS: Signed PROCEDURE: A single AP view of the chest. COMPARISON: [facility], CT, CT CHEST W, 04/27/2017, 20:12. INDICATIONS: PICC LINE PLACEMENT FINDINGS: See impr ession. IMPRESSION: 1. interval placement of right-sided PIC line, which has its distal tip projecting in the distal SVC. 2. Lungs are clear. Cardiac silhouette is unremarkable. Pulmonary vasculature is normal. Remi Campa M.D. Dictated by: Remi Campa M.D. on 8 at 18:12 Electronically approved by: Remi Campa M.D. on 018 at 18:12 Dictated By: REMI CAMPA MD Electronically Si gned By: REMI CAMPA MD on 05/15/18 1812 Transcribed By: ANABELL on 12/23/17 1 812 COPY TO: GIUSEPPE FRANCISCO MD CT FOREARM LEFT W [place] [address] Patient Name: ALONA GRIFFITH MR #: [id number] : 1980 Age/Sex: 37/M Req #: [id number] Adm Physician: Ordered by: [employer] Report #: [id number] Location: ER Room/Bed: Procedure: [id number] CT/CT FOREARM LEFT W Exam Date: Exam Time: REPORT STATUS: Signed CT FOREARM LEFT WITH CONTRAST TECHNIQUE: Standard departmental protocols wer e used. Post-contrast images were obtained after the intravenous injection of 100 cc of Isovue-370. Sagittal and coronal reformatted images were obtained . HISTORY: Infection/abscess formation COMPARISON: None. FINDIN GS: The alignment is normal. There is no evidence of a focal bone or joint a bnormality. The soft tissues are remarkable for dorsal edema involving the ent andreas forearm wrist and proximal dorsum of the hand. No evidence of periphera lly enhancing fluid collection. IMPRESSION: Dorsal edema of the left forearm and wrist without evidence of developing abscess. Findings may represe nt cellulitis Signed by: Dr. Stan Espana M.D. on 12/22/2017 10:20 PM Dictated By: STAN BEASLEY MD 19 Transcribed By: CLIFF on 12/22/172219 COPY TO: [employer]ER CT CHEST W [facility] [address] [place] [address] Patient Name: ALONA GRIFFITH MR #: [id number] : 1980 Age/Sex: 36/M Req #: [id number] Adm Physician: Ordered by: JANELL LACEY MD Report #: [id number] Location: ER Room/Bed: Procedure: [id number] CT/CT CHEST W Exam Date: Exam Time: 2011 REPORT STATUS: Signed EXAM: CT CHEST W DATE: 04/27/2017 8:00 PM Time stamp on exam: 2018 hours IND ICATION: Chest pain and coughing up blood COMPARISON: CT of the chest October 16, 2016 TECHNIQUE: Multidetector CT scanning of the chest was performed. Brianna nal and sagittal multiplanar reformations were obtained. PE protocol performed . IV Contrast: 100 cc SMV 370 CTDIvol has been reviewed. It is below the luo its set by the Radiation Protocol Committee (RPC). FINDINGS: LUNGS AND AIRWAYS: The trachea and major bronchi are unremarkable. No consolidations or edema. Mild bibasilar atelectasis. PLEURA: No effusions or pneumothorax. HEART, MEDIASTINUM, VESSELS: The heart is within normal size limits. No per icardial effusion. No thoracic aortic aneurysm. The main pulmonary artery chaparro ures 2.4 cm. No mediastinal mass or lymphadenopathy. Stable nonocclusive li near thrombus involving a segmental and subsegmental branches of the right and more occlusive of the left lower lobe pulmonary arteries. Stable filling defe ct in the left inferior pulmonary vein. UPPER ABDOMEN: Nonspecific partiall y visualized coarse calcification in the infrarenal inferior vena cava, probab ly related to chronic thrombus. MUSCULOSKELETAL: No acute findings. IM PRESSION: Stable chronic bilateral lower lobe pulmonary emboli. No new pulmona ry embolism identified. No evidence of pulmonary infarct. 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 Signed by: Dr. Rito Chapman M.D. on 04/27/2017 8:54 PM Dictated By: RITO Freitas 53 Transcribed By: CLIFF on 04/27/172053 COPY TO: JANELL LACEY MD CHEST SINGLE (NOT PORTABLE) [place] [address] Patient Name: ALONA GRIFFITH MR #: [id number] : 1980 Age/Sex: 36/M Req #: [id number] Adm Physician: Ordered by: JANELL LACEY MD Report #: [id number] Location: ER Room/Bed: Procedure: [id number] DX/CHEST SINGLE (NOT PORTABLE ) Exam Date: 04/27/17 Exam Time: 1915 REPORT S TATUS: Signed EXAM: CHEST SINGLE (NOT PORTABLE), AP 1 view DATE: 04/27/2017 7:02 PM Time stamp on exam: 1906 hours INDICATION: Mild chest pain COMPARIS ON: AP view of the chest April 19, 2016 FINDINGS: LINES/TUBES: None LUNGS: No consolidations or edema. Subsegmental atelectasis left lung base. PLEURA: No effusions or pneumothorax. HEART AND MEDIASTINUM: Normal siz e and contour. BONES AND SOFT TISSUES: No acute findings. IMPRESSION: No acute thoracic abnormality. Signed by: Kevin Peña on 04/27/2017 8:20 PM Dictated By: RITO CHAPMAN MD Electronically Si gned By: RITO CHAPMAN MD on 04/27/172019 Transcribed By: CLIFF on 04/27/172019 COPY TO: JANELL LACEY MD
--- OUTSIDE RECORDS SUMMARY | 2020-03-10 19:08 | XMS REPORT | Continuity of Care Document ---
Author Author [employer] Organization [employer] Address Unknown Phone Unavailable Care Team Providers Care Customer Account Coordinator Name Role Phone [employer] Unavailable Un available Problems Problem Status Onset Date Classification Date Reported Comments Source Encounter for examination and observatio n following work accident 09/23/2018 04/07/2019 [facility] S83.511A - SPRAIN OF ANTERIOR CRUCIATE L Active 09/01/2018 [facility] LEFT ARM PAIN Active 12/22/2017 [facility] WOUND INFECTION Active 12/19/2017 [facility] FALL Active 12/18/2017 [facility] Other specified injuries of head, initial encounter 12/18/2017 12/21/2017 [facility] Laceration without foreign body of left elbow, initial encounter 12/18/2017 12/21/2017 [facility] Strain of muscle, fascia and tendon at n blake level, initial encounter 12/18/2017 12/21/2017 [facility] snf (current) use of anticoagulants 12/18/2017 12/21/2017 [facility] ANNUAL PHYSICAL Active 10/31/2017 [facility] Pain (finding) Resolved 01/22/2010 Problem 04/07/2019 [facility] [place] [facility] [place],[facility] Cough (finding) Resolved 01/19/2010 Problem 04/07/2019 [facility] Pneumonia (disorder) Resolved 01/17/2010 Problem 04/07/2019 [facility] History of - thrombosis (context-dependent category) Active Problem 04/07/2019 [facility] [place] [facility] [place],[facility] Hypertensive disorder, systemic arterial (disorder) Active Problem 04/07/2019 [facility] [place],[facility] Hypertriglyceridemia (disorder) Active Problem [facility] [place],[facility] Special examination performed (finding) Active Problem 04/07/2019 [facility], [facility] [place], [place] Sprain of anterior cruciate ligament of right knee, initial encounter 04/07/2019 [facility] Sprain of unspecified collateral ligamen t of right knee, initial encounter 04/07/2019 [facility] Other tear of medial meniscus, current i njury, right knee, initial encounter 04/07/2019 [facility] XRAY Active [facility] Medications Medication Details Route Status Patient Instructions Ordering Provider Order Date Source Acetaminophen 300 MG / Codeine Phosphate 30 MG Oral Tablet [Tylenol with Codeine #3] 1 tab, PO, Q6H, PRN Pain, X 4 day, # 17 tab, 0 Refill(s) Active 12/19/2017 [facility] Zofran 4 mg, Route: IVP, Drug form: INJ, ONCE, Dosing Weight 95.455, kg, Priority: STAT, Start date: 12/18/17 19:40:00 CDT, Stop date: 12/18/17 19:40:00 CDT Inactive 12/19/2017 [facility] Morphine 4 mg, Route: IVP, ONC E, Dosing Weight 95.455, kg, Priority: STAT, Start date: 12/18/17 19:40:00 CDT, Stop date: 12/18/17 19:40:00 CDT Inactive 12/19/2017 [facility] Zofran ODT 4 mg, Route: PO, Dr ug form: TABDIS, ONCE, Dosing Weight 95.455, kg, Priority: STAT, Start date: 12/18/17 19:32:00 CDT, Stop date: 12/18/17 19:32:00 CDT Inactive 12/19/2017 [facility] Morphine 4 mg, Route: IM, ONCE , Dosing Weight 95.455, kg, Priority: STAT, Start date: 12/18/17 19:32:00 CDT, Stop date: 12/18/17 19:32:00 CDT Inactive 12/19/2017 [facility] tramadol hydrochloride 50 MG Oral Tablet [Ultram] 50 mg = 1 tab, PO, Q4H, PRN pain, X 3 day, # 20 tab, 0 Refill(s) Active 12/19/2017 [facility] Acetaminophen 325 MG / Hydrocodone Samantha trate 10 MG Oral Tablet [[place] 10/325] Notes: Do not exceed 4gm/day of acetamin ophen. (Same as: [place] 325/10) Inactive 12/18/2017 [facility] Saline Flush 0.9% Notes: (Same as: BD Posiflush) Inactive 12/18/2017 [facility] Allergies, Adverse Reactions, Alerts Substance Category Reaction Severity Reaction type Status Date Reported Comments Source Keflex Assertion Drug allergy Active [facility] Augmentin Assertion Drug allergy Active [facility] [place] traMADol Assertion Drug allergy Active [facility] [place] Immunizations Immunization Date Given Site Status Last Updated Comments Source diphtheria/pertussis, acel/tetanus adult 12/18/2017 Right Deltoid completed [facility] Results No Data Provided for This Section Pathology Reports No Data Provided for This Section Diagnostic Reports Report Value Date Source Knee wo contrast MRI EXAMINATI ON: MRI of the right knee without contrast [...] Menisci: --Medial: There is a horizontal tear inv olving the posterior horn of the medial meniscus, [...] pad. IMPRESSION: 1. Horizontal tear involving the posteri or horn of the right knee medial meniscus [...] tear. 4. Intact right knee cruciate and collat eral ligaments without medial or lateral compartment chondrosis. 09/17/2018 [facility] [place] Elbow 2 views DX Clinical Felicity cation: Left elbow laceration with swelling. Comparison: 12/18/2017. Technique: AP and lateral views of the left elbow. Findings: No acute fracture or dislocation. The joint spaces appear preserved. No osseous lesions. No posterior fat pad to suggest the presence of a joint effusion. No foreign body. IMPRESSION: Unremarkable left elbow. SL: RUDY 12/20/2017 [facility] Brain wo contrast CT Clinical Indication: - [...] effect. No calvarial fracture. SL: [id number] 12/18/2017 [facility] Spine cervical wo contrast CT Clinical Indication: [...] of the cervical spine. SL: [id number] 12/18/2017 [facility] Pelvis AP DX Clinical Indicati on: - trauma. Patient fell and landed on [...] assessment. IMPRESSION: 1. Unremarkable AP pelvis radiograph. SL: [id number] 12/18/2017 [facility] Chest 1view DX Clinical Indica tion: Patient fell and landed on rocks Comparison: 10/31/2017 FINDINGS: The frontal chest radiograph shows normal lung volumes without interstitial or airspace opacities, pleural effusions or pneumothorax. The cardiomediastinal contours are normal. The trachea is midline. There are no clinically significant osseous abnormalities noted. IMPRESSION: No chest radiographic evidence of acute cardiopulmonary disease. SL: [id number] 12/18/2017 [facility] Elbow 3 views DX Exam: Left E lbow 3 views DX Clinical Indication: Left elbow [...] 1. No fractures or dislocation of the le ft elbow. 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 Heart size is within normal limits. Mediastinal contours are unremarkable. Lungs are clear without infiltrate or mass. No pleural effusion or pneumothorax. No acute osseous abnormality. IMPRESSION: 1. No radiographic evidence for acute pr ocess in the chest. SL: [id number] 10/31/2017 [facility] Chest 1view DX PA chest: Th e cardiomediastinal silhouette, pulmonary vasculature and felipe are within normal limits. The lungs and pleural spaces are clear. There are no significant osseous abnormalities. There is no significant change compared to 04/22/2016. IMPRESSION: No acute radiographic abnormalities in the chest. [id number] 03/21/2017 [facility] 1view DX PA chest: Th e cardiomediastinal silhouette, pulmonary vasculature and felipe are within normal limits. The lungs and pleural spaces are clear. There are no significant osseous abnormalities. There is no significant change compared to 01/17/2010. IMPRESSION: No acute radiographic abnormalities in the chest. [id number] 04/22/2016 [facility] Consultation Notes No Data Provided for This Section Discharge Summaries No Data Provided for This Section History and Physicals No Data Provided for This Section Vital Signs Vital Sign Value Date Comments Source Weight 95.455 12/22/2017 [facility] Heart Rate 78 12/22/2017 [facility] Respitory Rate 18 12/22/2017 [facility] Temperature Oral (F) 98.7 F 12/22/2017 [facility] BMI Calculated 27.76 12/22/2017 [facility] Height 185.42 cm 12/22/2017 [facility] Systolic (mm Hg) 151 12/22/2017 [facility] Diastolic (mm Hg) 101 12/22/2017 [facility] Heart Rate 95 12/19/2017 [facility] Respitory Rate 18 12/19/2017 [facility] Temperature Oral (F) 98 F 12/19/2017 [facility] Systolic (mm Hg) 139 12/19/2017 [facility] Diastolic (mm Hg) 97 12/19/2017 [facility] BMI Calculated 27.76 12/18/2017 [facility] Weight 95.455 12/18/2017 [facility] Height 185.42 cm 12/18/2017 [facility] Heart Rate 83 12/18/2017 [facility] Systolic (mm Hg) 139 12/18/2017 [facility] Diastolic (mm Hg) 87 12/18/2017 [facility] Respitory Rate 16 12/18/2017 [facility] Temperature Oral (F) 98.5 F 12/18/2017 [facility] Encounters Location Location Details Encounter Type Encounter Number Reason For Visit Attending Provider ADM Date DC Date Status Source [facility] Patient [id number] Deangelo Banglawala 04/22/2016 07/22/2016 [facility] Patient [id number] Khqing Banglawala 03/21/2017 06/20/2017 [facility] Outpatient [id number] URSHEED BANGLAWALA 03/26/2017 [facility] Phone Message [id number] 10/09/2017 10/11/2017 [facility] Patient [id number] Abelardo Edmondson Jr 10/31/2017 01/30/2018 [facility] Outpatient [id number] DAMIEN MARTIN 11/26/2017 Active [facility] Ambulatory Pre-Reg [id number] Damien Martin 11/26/2017 11/26/2017 [facility] Emergency [id number] Rosie Dalton 12/18/2017 12/19/2017 [facility] Emergency [id number] Dinesh Cristy 12/22/2017 12/22/2017 [facility] [place] [facility] [id number] Austin Mckeon 09/17/2018 09/18/2018 [facility] Procedures Procedure Code Date Perfomer Comments Source ACL - Repair of anterior cruciate ligament [id number] [facility], VALERIE fernandes,[facility] Tonsillectomy [id number] [facility], [facility],[facility] Assessment and Plan No Data Provided for This Section Plan of Care No Data Provided for This Section Social History Social History Date Source Social History TypeResponse Smoking Status Never smoker; Exposure to Tobacco Smoke None; Cigarette Smoking Last 365 Days No; Reg Smoking Cessation Counseling No entered on: 12/19/17 12/20/2017 [facility] Social History TypeResponse Smoking Status Never smoker; Exposure to Tobacco Smoke None; Cigarette Smoking Last 365 Days No; Reg Smoking Cessation Counseling No entered on: 12/19/17 12/20/2017 [facility] Social History TypeResponse Smoking Status Never smoker; Exposure to Tobacco Smoke None; Cigarette Smoking Last 365 Days No; Reg Smoking Cessation Counseling No entered on: 12/19/17 12/20/2017 [facility] Social History TypeResponse Smoking Status Never smoker; Exposure to Tobacco Smoke None; Cigarette Smoking Last 365 Days No; Reg Smoking Cessation Counseling No entered on: 12/19/17 12/20/2017 [facility] Family History No Data Provided for This Section Advance Directives No Data Provided for This Section Functional Status No Data Provided for This Section
--- OUTSIDE RECORDS SUMMARY | 2020-03-10 19:08 | XMS REPORT | Summary of Care ---
Author Author [facility] - [facility] Organization [facility] - [facility] Address Unknown Phone Unavailable Encounter HQ Po(FIN) [id number] Date(s): 09/17/18 - 09/17/18 [facility] Out[facility] - [place] [address] [place] [id number] [phone] Encounter Diagnosis Encounter for examination and observation following work accident (Final) - 09/22/18 Sprain of anterior cruciate ligament of right knee, initial encounter (Final) - Sprain of unspecified collateral ligament of right knee, initial encounter (Final) - Other tear of medial meniscus, current injury, right knee, initial encounter (Final) - Discharge Disposition: Home or Self Care Attending Physician: Austin Mckeon MD Referring Physician: Austin Mckeon MD Vital Signs No data available for this section Problem List Condition Effective Dates Status Health Status Informan t Cough(Confirmed) < 01/19/10 Resolved History of venous Active thrombosis(Confirmed ) Hypertension(Confirm Active ed) Hypertriglyceridemia Active (Confirmed) Pain(Confirmed) 01/22/10 - 01/17/10 Resolved Pneumonia( ) < 01/17/10 Resolved 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) Allergies, Adverse Reactions, Alerts Substance Reaction Severity Status Keflex Active Augmentin Active traMADol Active Medications No data available for this section Results No data available for this section Immunizations Given and Recorded Vaccine Date Status Refusal Reason diphtheria/pertussis, acel/tetanus adult 12/18/17 Given Procedures Procedure Date Related Diagnosis Body Site Status ACL - Repair of anterior cruciate ligament Comple an Tonsillectomy Completed Social History Social History Type Response Smoking Status Never smoker; Exposure to T obacco Smoke None; Cigarette Smoking Last 365 Days No; Reg Smoking Cessation Counseli ng No entered on: 12/19/17 Assessment and Plan No data available for this section
== END 2020-03-07 08:30 | disposition home or self-care (01) ==
LOC: ER 05:10
DX: R10.11 Right upper quadrant pain (principal); K59.00 Constipation, unspecified; I10 Essential (primary) hypertension; E78.5 Hyperlipidemia, unspecified; Z86.718 Personal history of other venous thrombosis and embolism
CPT/HCPCS: 36415; 74177; 80053; 81001; 82150; 83690; 85025; 85610; 85730; 99284; J1885; Q9967

== ENCOUNTER 2020-12-01 05:58 | Emergency (ER) | payer OTHER ==
[~2020-12-01] VITALS: Ht 185.4 cm; Wt 95.3 kg
[2020-12-01 06:45] LABS: BASOPHILS % 0.3 % (0.0-1.0); EOSINOPHILS % 0.1 % (0.0-6.0); HEMATOCRIT 47.7 % (38.2-49.6); HEMOGLOBIN 16.5 g/dL (14.0-18.0); LYMPHOCYTES # (AUTO) 1.6 (1.0-3.2); LYMPHOCYTES % 16.4 % (18.0-39.1); MEAN CORPUSCULAR HEMOGLOBIN 29.6 pg (28-32); MEAN CORPUSCULAR HGB CONC 34.6 g/dL (31-35); MEAN CORPUSCULAR VOLUME 85.6 fL (81-99); MONOCYTES # (AUTO) 0.4 (0.2-0.8); MONOCYTES % 4.5 % (4.4-11.3); NEUTROPHILS # (AUTO) 7.4 (2.1-6.9); NEUTROPHILS % 78.3 % (38.7-80.0); PLATELET COUNT 255 x10e3/uL (140-360); RED BLOOD COUNT 5.57 x10e6/uL (4.3-5.7); RED CELL DISTRIBUTION WIDTH 11.7 % (11.7-14.4)
[2020-12-01 07:04] LABS: ANION GAP 15.7 mmol/L (8-16); BLOOD UREA NITROGEN 22 mg/dL (7-26); BUN/CREATININE RATIO 25 (6-25); CALCIUM 8.6 mg/dL (8.4-10.2); CARBON DIOXIDE 21 mmol/L (22-29); CHLORIDE 107 mmol/L (98-107); CREATININE, SERUM 0.88 mg/dL (0.72-1.25); EST GLOMERULAR FILTRATION RATE > 60 ML/MIN (60-); GLUCOSE 107 mg/dL (74-118); POTASSIUM 3.7 mmol/L (3.5-5.1); SODIUM 140 mmol/L (136-145)
== END 2020-12-01 07:49 | disposition home or self-care (01) ==
LOC: ER 06:05
DX: I10 Essential (primary) hypertension (principal); M54.2 Cervicalgia; E78.5 Hyperlipidemia, unspecified; Z86.711 Personal history of pulmonary embolism
CPT/HCPCS: 36415; 80048; 84484; 85025; 99283

== ENCOUNTER 2021-04-10 19:55 | Emergency (ER) | payer OTHER ==
[~2021-04-10] VITALS: Ht 185.4 cm; Wt 96.6 kg
[2021-04-10] MEDS ORDERED: SODIUM CHLORIDE 0.9% 1000ML 1,000 ML IV STA (20:27)
[2021-04-10] MEDS ORDERED: SODIUM CHLORIDE 0.9% 1000ML 1,000 ML ONE (20:47)
[2021-04-10] MEDS ORDERED: ONDANSETRON ODT4 MG PO (21:29)
[2021-04-10 21:38] VITALS: BP 160/90
== END 2021-04-10 21:38 | disposition home or self-care (01) ==
LOC: FSED 20:15
DX: R25.2 Cramp and spasm (principal); E86.0 Dehydration; I10 Essential (primary) hypertension; E78.5 Hyperlipidemia, unspecified; D68.9 Coagulation defect, unspecified; Z86.711 Personal history of pulmonary embolism
CPT/HCPCS: 80053; 85025; 99283; J7030

== ENCOUNTER 2021-05-01 22:49 | Emergency (ER) | payer OTHER ==
[~2021-05-01] VITALS: Ht 185.4 cm; Wt 96.6 kg
[~2021-05-01 22:49] MED LIST changes: +ONDANSETRON ODT4 MG PO
[2021-05-01] MEDS ORDERED: CEFDINIR300 MG PO (23:35)
[2021-05-01] MEDS ORDERED: SODIUM CHLORIDE 0.9% 50ML 50 ML ONE (23:42)
[2021-05-01] MEDS ORDERED: IOPAMIDOL 370 MG/ML 200 ML INFUS..BTL INJ ONE (23:43)
== END 2021-05-02 02:32 | disposition home or self-care (01) ==
LOC: FSED 23:20
DX: R05 Cough (principal); J20.9 Acute bronchitis, unspecified; I10 Essential (primary) hypertension; E78.5 Hyperlipidemia, unspecified; D68.9 Coagulation defect, unspecified
CPT/HCPCS: 71260; 80053; 99284; Q9967